=== PATIENT | male | born 1975 | race Caucasian/White ===

== ENCOUNTER 2017-04-01 18:17 | Inpatient (IN) | payer OTHER ==
[~2017-04-01] VITALS: Ht 177.8 cm; Wt 102.3 kg
[2017-04-01] MEDS: SOD CHLORIDE 0.9% 1,000 ML IV SCH (03:00)
[2017-04-01] MEDS ORDERED: SODIUM CHLORIDE 0.9% 1L BAG IV* STA (18:23)
[2017-04-01] MEDS ORDERED: VANCOMYCIN 1 GM (PMX) 250 ML IVPB ONE (18:30)
[2017-04-01] MEDS ORDERED: LEVOFLOXACIN 750MG/D5W (PMX) 150 ML IVPB ONE (18:30)
[2017-04-01] MEDS ORDERED: ONDA-43 PEG (19:13)
[2017-04-01] MEDS ORDERED: LEVE500S8 GTB (19:16)
[2017-04-01] MEDS ORDERED: MAGN400O4 PEG (19:17)
[2017-04-01] MEDS ORDERED: ASCO125T GTB (19:20)
[2017-04-01] MEDS ORDERED: ACET160O41 PEG (19:27)
[2017-04-01] MEDS ORDERED: THIA100T10 GTB (19:27)
[2017-04-01 19:28] LABS: ABNORMAL IP MESSAGE 1; HEMATOCRIT 25.2 % (42.0-52.0); HEMOGLOBIN 7.5 g/dl (14.0-18.0); MEAN CORPUSCULAR HEMOGLOBIN 30.7 pg (29.0-33.0); MEAN CORPUSCULAR HGB CONC 29.8 g/dl (32.0-37.0); MEAN CORPUSCULAR VOLUME 103.3 fl (82.0-101.0); MEAN PLATELET VOLUME 12.2 fl (7.4-10.4); NUCLEATED RED BLOOD CELLS% 0.2 /100WBC (0.0-0.0); PLATELET COUNT 72 10^3/UL (140-415); POSITIVE DIFF @See below; RED BLOOD COUNT 2.44 10^6/ul (4.70-6.10); RED CELL DISTRIBUTION WIDTH 21.1 % (11.5-14.5); WHITE BLOOD COUNT 9.6 10^3/ul (4.8-10.8)
[2017-04-01 19:44] LABS: INR 1.38; PT RATIO 1.3
[2017-04-01 19:45] LABS: PARTIAL THROMBOPLASTIN TIME 43.2 Sec (25.0-35.0)
[2017-04-01 19:47] LABS: ALANINE AMINOTRANSFERASE 61 IU/L (13-69); ALBUMIN 3.1 g/dl (3.3-4.9); ALBUMIN/GLOBULIN RATIO 0.53; ALKALINE PHOSPHATASE 536 IU/L (42-121); ANION GAP 25 (8-16); ASPARTATE AMINO TRANSFERASE 83 IU/L (15-46); BILIRUBIN,INDIRECT 0.7 mg/dl (0-1.1); BILIRUBIN,TOTAL 1.7 mg/dl (0.2-1.3); BLOOD UREA NITROGEN 26 mg/dl (7-20); CALCIUM 10.6 mg/dl (8.4-10.2); CARBON DIOXIDE 17 mmol/L (21-31); CHLORIDE 106 mmol/L (97-110); CREATININE 1.48 mg/dl (0.61-1.24); GLUCOSE 74 mg/dl (70-220); POTASSIUM 3.4 mmol/L (3.5-5.1); SODIUM 145 mmol/L (135-144); TOTAL PROTEIN 8.9 g/dl (6.1-8.1)
[2017-04-01] MEDS ORDERED: FAMO20TA18 GTB (19:48)
[2017-04-01] MEDS ORDERED: FOLI-49 PEG (19:48)
[2017-04-01] MEDS ORDERED: HYDR-906 GTB (19:53)
[2017-04-01] MEDS ORDERED: LACT1CAP57 GTB (19:54)
[2017-04-01] MEDS ORDERED: DOCU-159 GTB (19:55)
[2017-04-01] MEDS ORDERED: BISA10SU75 PR (19:55)
--- NOTE | 2017-04-01 19:55 | RADRPT ---
PROCEDURE: Portable chest x-ray. CLINICAL INDICATION: 41 years of age, male. Possible sepsis. TECHNIQUE: Portable AP view of the chest. COMPARISON: None available. FINDINGS: Tracheostomy tube appears in good position. Enlarged cardiopericardial silhouette. Mediastinal contours are otherwise normal. There is patchy consolidation in the left mid and lower lung zones and in the right lower lung zone. There are moderate bilateral pleural effusions. Negative for pneumothorax. Old healed left rib fractures. Osteopenia. IMPRESSION: Bilateral lung consolidation in the left mid and bilateral lower lung zones is concerning for multi focal pneumonia or aspiration. There are moderate bilateral pleural effusions. Tracheostomy tube in position. RPTAT: HCTS Physician Medardo Date Time Electronically viewed and signed by Anders Arias Physician on 04/01/2017 19:54 CS/
[2017-04-01] MEDS ORDERED: FERR220S13 GTB (19:58)
[2017-04-01] MEDS ORDERED: DESM10SP NASAL (19:59)
[2017-04-01] MEDS ORDERED: DEXT15DR2 BOTH EYES (20:01)
[2017-04-01 20:02] LABS: EOSINOPHILS % (M) 2 % (0-7); MONOCYTES % (M) 2 % (0-11); PLATELET ESTIMATE NORMAL; TROPONIN-I < 0.012 ng/ml (0.00-0.12)
[2017-04-01] MEDS ORDERED: [UNRECOGNIZED DRUG - CODE] PEG (20:07)
[2017-04-01] MEDS ORDERED: MULT-105 PO (20:07)
[2017-04-01] MEDS ORDERED: [UNRECOGNIZED DRUG - CODE] TP (20:08)
--- NOTE | 2017-04-01 20:16 | ERA ---
ER Documentation Chief Complaint Date/Time DATE: 04/01/17 TIME: 20:15 Chief Complaint SOB WITH FEVER/TACHYCARDIA/TACHYNPEIC WITH CLOUDY URINE NOTED IN [place] HPI This is a 41-year-old male with a significant brain injury with limited cognitive ability, chronic trach and PEG, residing in a detention facility is presenting with concerns of hypotension and sepsis. The patient was diagnosed and treated for sepsis related to UTI approximately 1 month ago according to the patient's medical record from the facility. Today, the patient was found to be hypotensive, intermittently with systolic blood pressures in the 70s. The patient was also in respiratory distress with intermittent episodes of reported hypoxia, though this does not appear to be documented. The staff reports that his urine has been more cloudy than typical. They are concerned about recurrence of sepsis related to a UTI. The patient is unable to communicate, so the history and physical is limited. The patient is oxygenating in the 90s on his normal vent settings of 12/500/40/5. He was reportedly afebrile at the care facility. He does have a Daley catheter in place, but it is unclear how long this is been in for. The urine in the Daley bag is cloudy. The patient has known sacral decubitus ulcers that appear to be recently dressed. The patient is trached and is not responsive to verbal command. He does withdraw to pain in all extremities, but this is the limit of his response. History and physical were limited secondary to his chronic altered mentation. ROS Patient unable to provide review of systems secondary to mental status Medications Home Meds Reported Medications Silver Chloride (SILVER GEL) 14.2 Gm Gel..gram., 14.2 GM TP Q3D for OVER OPEN ULCER 04/01/17 Multivitamin With Minerals (BIOVOL) 473 Ml Syrup, 15 ML PEG DAILY 04/01/17 Multivitamin with Minerals (Multivitamins with Minerals) 1 Each Tablet, 1 EACH PO, TAB 04/01/17 Dextran/Hypromellose/Glycerin (Artificial Tears Drops) 15 Ml Drops, 1 DROP BOTH EYES BID, EA 04/01/17 Desmopressin (Nonrefrigerated) (Desmopressin 10 Mcg/0.1 ml Spr) 10 Mcg/0.1 Ml Rogers.pump, 1 SPRAY NASAL BID, #1 BOTTLE 04/01/17 Ferrous Sulfate* (Ferrous Sulfate*) 220 Mg/5 Ml Solution, 7.5 ML GTB BID, ML 04/01/17 Docusate Sodium* (Docusate Sodium*) 100 Mg Capsule, 100 MG GTB DAILY, #30 CAP 04/01/17 Bisacodyl* (Bisacodyl*) 10 Mg Supp, 10 MG [place] Q48 Y for PRN, SUPP 04/01/17 Lactobacillus Rhamnosus* (Culturelle*) 1 Each Cap.sprink, 1 CAP GTB DAILY, CAP 04/01/17 Hydrocodone/Acetaminophen ([place] 5-325 Tablet) 1 Each Tablet, 1 EACH GTB Q6H, TAB 04/01/17 Famotidine* (Famotidine*) 20 Mg Tablet, 20 MG GTB QHS, #30 TAB 04/01/17 Folic Acid* (Folic Acid*) 1 Mg Tablet, 1 MG PEG DAILY, TAB 04/01/17 Thiamine* (Thiamine*) 100 Mg Tablet, 100 MG GTB DAILY, TAB 04/01/17 Acetaminophen* (Acetaminophen* Susp) 160 Mg/5 Ml Oral.susp, 15 ML PEG Q6H Y for MILD PAIN LEVEL 1-3, ML FOR FEVER 04/01/17 Ascorbic Acid* (Vitamin C* Chew) 125 Mg Tab.chew, 250 MG GTB TID, TAB.CHEW 04/01/17 Magnesium Hydroxide* (Milk Of Magnesia*) 400 Mg/5 Ml Oral.susp, 30 ML PEG Q12H for CONSTIPATION, ML 04/01/17 Levetiracetam* (Levetiracetam*) 500 Mg/5 Ml Solution, 500 MG GTB BID, ML 04/01/17 Ondansetron Hcl* (Zofran*) 4 Mg Tab, 4 MG PEG Q6H Y for NAUSEA AND OR VOMITING, TAB 04/01/17 Allergies Allergies: Coded Allergies: cephalexin (Unverified Allergy, Unknown, 04/01/17) PMhx/Soc History of Surgery: Yes (TRACH PLACEMENT,) Anesthesia Reaction: No Hx Neurological Disorder: No Hx Respiratory Disorders: Yes (RDF) Hx Cardiac Disorders: No Hx Psychiatric Problems: No Hx Miscellaneous Medical Probl: Yes (PRE-DM, HYDROCEPHALUS, DI, PRESSURE ULCERS BUTTOCKS) Hx Alcohol Use: No Hx Substance Use: No Hx Tobacco Use: No Smoking Status: Unknown if ever smoked FmHx Patient unable to provide family history secondary to current mental status Physical Exam Vitals Vital Signs Date Time Temp Pulse Resp B/P Pulse Ox O2 Delivery O2 Flow Rate FiO2 04/02/17 01:40 103 18 99 40 04/01/17 23:30 108 22 100 40 04/01/17 21:29 115 23 85/56 99 Mechanical Ventilator Trach Collar 04/01/17 21:00 108 28 100 40 04/01/17 20:16 130 20 83/54 98 Mechanical Ventilator Trach Collar 04/01/17 19:47 133 28 79/56 97 Mechanical Ventilator Trach Collar 04/01/17 18:50 129 29 98 40 04/01/17 18:34 26 95 40 04/01/17 18:25 100.9 142 28 79/56 100 Physical Exam Const: trached, minimally responsive Head: Atraumatic Eyes: Normal Conjunctiva ENT: Normal External Ears, Nose. dry mucous membranes Neck: trach in place Resp: Coarse breath sounds Cardio: tachycardic, reg rhythm, no murmurs Abd: Soft, non tender, non distended. Normal bowel sounds Skin: No petechiae or rashes Back: large sacral decubitus ulcer Ext: No cyanosis Neur: Withdraws to pain in all extremities, A&Ox0, intermittent facial twitching and saccadic eye movements Result Diagram: 04/03/17 1340 04/03/17 0500 Results 24 hrs Laboratory Tests Test 04/01/17 19:00 04/01/17 20:45 04/01/17 23:00 White Blood Count 9.610^3/ul Red Blood Count 2.4410^6/ul Hemoglobin 7.5g/dl Hematocrit 25.2% Mean Corpuscular Volume 103.3fl Mean Corpuscular Hemoglobin 30.7pg Mean Corpuscular Hemoglobin Concent 29.8g/dl Red Cell Distribution Width 21.1% Platelet Count 7210^3/UL Mean Platelet Volume 12.2fl Neutrophils % % Segmented Neutrophils % (Manual) 86% Band Neutrophils % (Manual) 8% Lymphocytes % % Lymphocytes % (Manual) 3% Monocytes % % Monocytes % (Manual) 2% Eosinophils % % Eosinophils % (Manual) 2% Basophils % % Nucleated Red Blood Cells % 0.2/100WBC Neutrophils # (Manual) 8.310^3/ul Band Neutrophils # 0.710^3/ul Absolute Lymphocytes (Manual) 0.210^3/ul Lymphocytes # 10^3/ul Monocytes # 10^3/ul Absolute Monocytes (Manual) 0.110^3/ul Eosinophils # 10^3/ul Basophils # 10^3/ul Nucleated Red Blood Cells # 10^3/ul Platelet Estimate NORMAL Prothrombin Time 17.0Sec Prothrombin Time Ratio 1.3 INR International Normalized Ratio 1.38 Activated Partial Thromboplast Time 43.2Sec Sodium Level 145mmol/L Potassium Level 3.4mmol/L Chloride Level 106mmol/L Carbon Dioxide Level 17mmol/L Anion Gap 25 Blood Urea Nitrogen 26mg/dl Creatinine 1.48mg/dl Glucose Level 74mg/dl Lactic Acid Level 11.0mmol/L 10.4mmol/L 9.7mmol/L Calcium Level 10.6mg/dl Total Bilirubin 1.7mg/dl Direct Bilirubin 1.00mg/dl Indirect Bilirubin 0.7mg/dl Aspartate Amino Transf (AST/SGOT) 83IU/L Alanine Aminotransferase (ALT/SGPT) 61IU/L Alkaline Phosphatase 536IU/L Troponin I < 0.012ng/ml < 0.012ng/ml Total Protein 8.9g/dl Albumin 3.1g/dl Globulin 5.80g/dl Albumin/Globulin Ratio 0.53 Urine Color GROVER Urine Clarity CLOUDY Urine pH 6.0 Urine Specific [place] 1.017 Urine Ketones NEGATIVEmg/dL Urine Nitrite NEGATIVEmg/dL Urine Bilirubin NEGATIVEmg/dL Urine Urobilinogen NEGATIVEmg/dL Urine Leukocyte Esterase 3+Alphonse/ul Urine Microscopic RBC > 182/HPF Urine Microscopic WBC > 182/HPF Urine Squamous Epithelial Cells FEW/HPF Urine Bacteria MODERATE/HPF Urine Mucus MODERATE/HPF Urine Hemoglobin 3+mg/dL Urine Glucose NEGATIVEmg/dL Urine Total Protein 2+mg/dl Magnesium Level 1.6mg/dl Creatine Kinase 34IU/L Creatine Kinase Index 7.2 Creatinine Kinase MB (Mass) 2.44ng/ml Current Medications Medications (Trade) Dose Ordered Sig/Von Route PRN Reason Start Time Stop Time Status Last Admin Dose Admin Sodium Chloride 2480 ml 2,480 ml BOLUS OVER 2 HOURS STAT IV* 04/01/17 18:23 04/01/17 18:27 DC 04/01/17 19:20 Vancomycin HCl 250 ml @ 125 mls/hr ONCE ONCE IVPB 04/01/17 18:30 04/01/17 20:29 DC 04/01/17 20:03 Levofloxacin/ Dextrose (Levaquin 750 Mg/ D5W 150 ml (Pmx)) 150 ml @ 100 mls/hr ONCE ONCE IVPB 04/01/17 18:30 04/01/17 19:59 DC 04/01/17 19:20 Lorazepam 2 mg 2 mg ONCE ONCE IV 04/01/17 20:30 04/01/17 20:31 DC Levetiracetam (Keppra 1,000mg/ 100ml (Pmx)) 100 ml @ 400 mls/hr ONCE ONCE IVPB 04/01/17 20:30 04/01/17 20:44 DC 04/01/17 20:45 Vancomycin HCl VANCOMYCIN PER PHARMACY PER PROTOCOL XX 04/01/17 20:30 Sodium Chloride 1,000 ml @ 125 mls/hr Q8H IV 04/01/17 20:30 04/03/17 19:17 Potassium Chloride (KCl 40 MEQ/250 ML NS) 250 ml @ 62.5 mls/hr ONCE ONCE IVPB 04/01/17 20:30 04/02/17 03:45 DC 04/02/17 10:55 Acetaminophen (Tylenol Liquid) 480 mg Q6H PRN PEG MILD PAIN LEVEL 1-3 04/01/17 20:30 Eye Lubricant (Artificial Tears Oph) 1 drop BID BOTH EYES 04/01/17 21:00 04/03/17 21:15 Levetiracetam (Keppra Liquid) 500 mg BID GTB 04/01/17 21:00 04/03/17 21:15 Ascorbic Acid (Vitamin C) 250 mg TID GTB 04/01/17 21:00 04/03/17 21:15 Miscellaneous Information 14.2 gm 14.2 gm Q3D TP 04/01/17 20:30 UNV Vancomycin HCl (Vancocin) 250 ml @ 125 mls/hr ONCE ONCE IVPB 04/01/17 23:00 04/02/17 03:45 DC Procedures/MDM The patient is exhibiting signs of septic shock. He was febrile, tachycardic, hypotensive with multiple possible sources of infection. A septic workup was performed. There was consideration of seizure, but he was responsive and the records indicate that he has the facial twitching frequently. Keppra was still given in the ER. Admit MDM: Patient's infectious symptoms have not stabilized and the patient is at risk of rapid decompensation. The patient will be admitted for careful hydration, antibiotic therapy, and infectious source control. Severe Sepsis criteria: Infectious source: unknown End organ damage indicated by: Lactate > 2.0 mmol/L Hypotension (SBP < 90 or >40 mmHG drop or MAP < 65) Acute Resp Failure (sat < 92% w/o oxygen) Plt < 100 Sepsis Management: Time of recognition of sepsis: Upon arrival Within 3 hours of recognition: Blood cultures x 2 before broad-spectrum antibiotics: Yes 30 ml/kg NS bolus Completed Initial lactate 11 Repeat lactate 10.4 Time of recognition of septic shock: Upon arrival Septic Shock Assessment: Any lactic acid > 4.0 YES Persistent hypotension (SBP < 90 or 40 mmHg drop, MAP < 65) despite 30 mL/kg IV fluid bolus YES Volume Re-assessment for Septic Shock (post 30 ml/kg bolus): BP 85/56, HR 15, RR23, Pox 99 Heart Regular rhythm, mild tachycardia Lungs Coarse breath sounds, but no crackles Skin Warm & dry Peripheral pulses Radially present Persistent Hypotension Treatment: Comfort care [No] Central line completed Vasopressor started Not required as MAPs ~65 I considered further perfusion assessment with CVP measurement, SCVO2, bedside ultrasound volume assessment, passive leg raise, trial of further fluid bolus. And proceeded with [30 ml/kg fluid bolus of NSS, broad spectrum antibiotics, and admission.] Accepting Care Team Current data and ongoing care discussed. Admitting Physician: [employer] Officer(s): None Outstanding Data: Culture results Critical Care: Critical care time 35 minutes excluding all billable procedures Emergent fluid management while maintaining close respiratory support. Provision of immediate and broad-spectrum antibiotic therapy. Simultaneous assessment for possible sources in order to direct targeted therapy. Consideration for invasive and chemical support to prevent cardiopulmonary collapse. Central Line Placement by me: Placed emergently, sterilely draped, full prep, gown, glove, mask, time out performed. Anesthesia: 1% lidocaine locally Location: right femoral vein Device: Multiple lumen Technique: Seldinger technique. Secured with suture. Results: Venous return from all ports with easy saline flush. No complications. Guide wire retrieved and disposed of. ED Ultrasound: Central line placed by me using concurrent ultrasound guidance. Real time image archived in the medical record confirms vascular anatomy. Departure Diagnosis: Primary Impression: Septic shock Additional Impressions: Acute and chronic respiratory failure Lactic acidosis Condition: NATAN Jimenes MD Apr 01, 2017 20:11 Condition: NATAN Jimenes MD Apr 01, 2017 20:11 Location: [[place]] Device: Multiple lumen Technique: Seldinger technique. Secured with suture. Results: Venous return from all ports with easy saline flush. No complications. Guide wire retrieved and disposed of. [ED Ultrasound: Central line placed by me using concurrent ultrasound guidance. Real time image archived in the medical record confirms vascular anatomy. [Chest X-ray 1V Interpreted by me: Central line in SVC, Normal soft tissue, No evidence of pneumothorax.] Departure Condition: NATAN Jimenes MD Apr 01, 2017 20:11
[2017-04-01] MEDS ORDERED: ACETAMINOPHEN 650MG/20.3ML CUP PEG PRN (20:30)
[2017-04-01] MEDS ORDERED: POTASSIUM CHLORIDE 250 ML IVPB ONE (20:30)
[2017-04-01] MEDS ORDERED: LEVETIRACETAM 1000 MG (PMX) 100 ML IVPB ONE (20:30)
[2017-04-01] MEDS ORDERED: [UNRECOGNIZED DRUG - OTHER] TP SCH (20:30)
[2017-04-01] MEDS ORDERED: LORAZEPAM 2 MG INJ IV ONE (20:30)
[2017-04-01] MEDS ORDERED: VANCOMYCIN IV PER PHARMACY XX SCH (20:30)
[2017-04-01] MEDS: LEVETIRACETAM (100 MG/ML) 5ML CUP GTB SCH (21:00)
[2017-04-01] MEDS: ASCORBIC ACID 250 MG TAB GTB SCH (21:00)
[2017-04-01] MEDS: ARTIFICIAL TEARS 15 ML OPH BOTH EYES SCH (21:00)
[2017-04-01 21:21] LABS: ADD UMIC YES; UR ASCORBIC ACID 40 mg/dL (NEGATIVE); UR BACTERIA MODERATE /HPF (NONE SEEN); UR BILIRUBIN (Dip) NEGATIVE (NEGATIVE); UR BLOOD (Dip) 3+ mg/dL (NEGATIVE); UR CLARITY CLOUDY (CLEAR); UR COLOR AMBER (YELLOW); UR GLUCOSE (Dip) NEGATIVE (NEGATIVE); UR KETONES (Dip) NEGATIVE (NEGATIVE); UR LEUKOCYTE ESTERASE (Dip) 3+ Leu/ul (NEGATIVE); UR MUCUS MODERATE /HPF (NONE SEEN); UR NITRITE (Dip) NEGATIVE (NEGATIVE); UR RBC > 182 /HPF (0-5); UR SPECIFIC GRAVITY (Dip) 1.017 (1.003-1.030); UR SQUAMOUS EPITHELIAL CELL FEW /HPF (FEW); UR TOTAL PROTEIN (Dip) 2+ mg/dl (NEGATIVE); UR UROBILINOGEN (Dip) NEGATIVE (NEGATIVE)
[2017-04-01] MEDS ORDERED: VANCOMYCIN 1 GM in NS 250 ML IVPB ONE (23:00)
[2017-04-02] VITALS (44 sets, daily range): BP systolic 85–117; BP diastolic 52–66; PULSE 80–101; RESP 13–22; Ht 177.8 cm; Wt 102.3 kg
[2017-04-02 05:22] LABS: CREATINE KINASE 34 IU/L (23-200)
[2017-04-02] MEDS: LANSOPRAZOLE 30 MG CAP GTB SCH (06:00)
[2017-04-02 06:40] LABS: CK-MB 2.44 ng/ml (0.0-2.4); TROPONIN-I < 0.012 ng/ml (0.00-0.12)
[2017-04-02 07:46] LABS: ADD UMIC YES; UR ASCORBIC ACID 40 mg/dL (NEGATIVE); UR BACTERIA FEW /HPF (NONE SEEN); UR BILIRUBIN (Dip) NEGATIVE (NEGATIVE); UR BLOOD (Dip) 3+ mg/dL (NEGATIVE); UR CLARITY CLOUDY (CLEAR); UR COLOR AMBER (YELLOW); UR GLUCOSE (Dip) NEGATIVE (NEGATIVE); UR KETONES (Dip) NEGATIVE (NEGATIVE); UR LEUKOCYTE ESTERASE (Dip) 3+ Leu/ul (NEGATIVE); UR MUCUS FEW /HPF (NONE SEEN); UR NITRITE (Dip) NEGATIVE (NEGATIVE); UR NONSQUAMOUS EPITHELIAL CELL 4 /HPF (NONE SEEN); UR RBC 67 /HPF (0-5); UR SPECIFIC GRAVITY (Dip) 1.015 (1.003-1.030); UR SQUAMOUS EPITHELIAL CELL FEW /HPF (FEW); UR TOTAL PROTEIN (Dip) 2+ mg/dl (NEGATIVE); UR UROBILINOGEN (Dip) NEGATIVE (NEGATIVE); UR WBC CLUMPS FEW /HPF (NONE SEEN)
[2017-04-02] MEDS ORDERED: PENDING SANTYL ORDER FOR WOUND CARE XX PRN (08:30)
[2017-04-02] MEDS ORDERED: SOD CHLORIDE 0.9% 1,000 ML IV ONE (09:00)
[2017-04-02] MEDS: ARTIFICIAL TEARS 15 ML OPH BOTH EYES SCH ×2 (09:00→21:01)
[2017-04-02] MEDS: FERROUS SULFATE 60 MG/ML 5ML CUP GTB SCH ×2 (09:16→21:01)
[2017-04-02] MEDS: LEVETIRACETAM (100 MG/ML) 5ML CUP GTB SCH ×2 (09:16→21:01)
[2017-04-02] MEDS: THIAMINE 100 MG TAB GTB SCH (09:16)
[2017-04-02] MEDS: MULTIVITAMINS 30 ML CUP GTB SCH (09:16)
[2017-04-02] MEDS: LACTOBACILLUS RHAMNOSUS CAP GTB SCH (09:17)
[2017-04-02] MEDS: POLYETHYLENE GLYCOL 17 GM PACKET NGT SCH (09:17)
[2017-04-02] MEDS: FOLIC ACID 1 MG TAB PEG SCH (09:17)
[2017-04-02] MEDS: ASCORBIC ACID 250 MG TAB GTB SCH ×3 (09:17→21:01)
[2017-04-02] MEDS: SOD CHLORIDE 0.9% 1,000 ML IV SCH ×3 (09:50→20:30)
[2017-04-02 10:16] LABS: ABNORMAL IP MESSAGE 1; HEMATOCRIT 23.6 % (42.0-52.0); HEMOGLOBIN 7.4 g/dl (14.0-18.0); MEAN CORPUSCULAR HEMOGLOBIN 31.4 pg (29.0-33.0); MEAN CORPUSCULAR HGB CONC 31.4 g/dl (32.0-37.0); MEAN PLATELET VOLUME 11.8 fl (7.4-10.4); PLATELET COUNT 41 10^3/UL (140-415); RED BLOOD COUNT 2.36 10^6/ul (4.70-6.10); RED CELL DISTRIBUTION WIDTH 20.6 % (11.5-14.5); WHITE BLOOD COUNT 13.7 10^3/ul (4.8-10.8)
[2017-04-02 10:22] LABS: CREATINE KINASE 42 IU/L (23-200)
[2017-04-02 10:27] LABS: ALBUMIN 2.5 g/dl (3.3-4.9); ALBUMIN/GLOBULIN RATIO 0.47; BILIRUBIN,DIRECT 0.7 mg/dl (0.00-0.20); BILIRUBIN,INDIRECT 0.7 mg/dl (0-1.1); BILIRUBIN,TOTAL 1.4 mg/dl (0.2-1.3); CALCIUM 9.5 mg/dl (8.4-10.2); CREATININE 1.22 mg/dl (0.61-1.24); MAGNESIUM 1.6 mg/dl (1.7-2.5); PHOSPHORUS 3.8 mg/dl (2.5-4.9); POTASSIUM 3.4 mmol/L (3.5-5.1); TOTAL PROTEIN 7.8 g/dl (6.1-8.1)
[2017-04-02 10:35] LABS: CK-MB 3.67 ng/ml (0.0-2.4); TROPONIN-I < 0.012 ng/ml (0.00-0.12)
[2017-04-02] MEDS: VANCOMYCIN 1.25 GM in SOD CHLORIDE 0.9% 250 ML IVPB SCH ×2 (11:23→23:11)
[2017-04-02] MEDS ORDERED: MAGNESIUM SULFATE 2 GM/50 ML 50 ML IVPB ONE (11:30)
[2017-04-02 12:03] LABS: LYMPHOCYTES # 0.1 10^3/ul (0.8-2.9); MONOCYTE # 0.1 10^3/ul (0.3-0.9); MONOCYTES % (M) 1 % (0-11)
[2017-04-02 12:04] LABS: ANISOCYTOSIS 1+ (0-0); BURR CELLS OCCASIONAL
[2017-04-02 12:05] LABS: POLYCHROMASIA 1+ (0-0)
--- NOTE | 2017-04-02 13:52 | CONS ---
Date/Time of Note Date/Time of Note DATE: 04/02/17 TIME: 13:46 Assessment/Plan Assessment/Plan Additional Assessment/Plan IMP: 1. Septic Shock--likely due to urosepsis 2. ARF--likely pre-renal 3. VDRF 4. Anoxic Encephalopathy 5. Lactic Acidosis 6. Seizure d/o 7. Decubs RECS: 1. IVF's 2. Pressors to MAP > 65 mm Hg 3. Follow lactate clearance 4. Broaden abx coverage to meropenem 5. Follow cultures and de-escalate 6. Obtain ABG and CXR Consultation Date/Type/Reason Admit Date/Time Apr 02, 2017 at 02:10 Type of Consultation: Pulm/CCM Hx of Present Illness This is a 41-year-old male resident of a SNF, with history of anoxic brain injury now in persistent vegetative state, chronic trach and PEG, DI, anemia, decub ulcers, hydrocephalus, who presents with septic shock requiring vasopressor support. Subjective hx not possible: pt non-verbal Past Medical History Medical History: peptic ulcer disease, other Past Surgical History Past Surgical Hx: other (PEG/Trach ) Family History Significant Family History: no pertinent family hx Social History Alcohol Use: none Smoking Status: Unknown if ever smoked Drug Use: none Exam/Review of Systems Vital Signs Vitals Vital Signs Date Time Temp Pulse Resp B/P Pulse Ox O2 Delivery O2 Flow Rate FiO2 04/02/17 10:30 93 19 104/61 04/02/17 09:10 99 40 04/02/17 07:30 97.8 04/01/17 21:29 Mechanical Ventilator Trach Collar Intake and Output 04/01/17 04/01/17 04/02/17 15:00 23:00 07:00 Output Total 50 ml Balance -50 ml Exam Constitutional: non-verbal Head: normocephalic Eyes: nl conjunctiva ENMT: intubated, nl external ears & nose, nl lips & teeth Neck: non-tender, supple Respiratory: diminished breath sounds Cardiovascular: irregular rhythm, regular rate and rhythm, systolic murmur Gastrointestinal: distended Musculoskeletal: nl extremities to inspection Extremities: normal pulses Results Result Diagram: 04/02/17 0903 04/02/17 0902 Results 24 hrs Laboratory Tests Test 04/01/17 19:00 04/01/17 20:45 04/01/17 23:00 04/02/17 03:00 White Blood Count 9.6 Red Blood Count 2.44 L Hemoglobin 7.5 L Hematocrit 25.2 L Mean Corpuscular Volume 103.3 H Mean Corpuscular Hemoglobin 30.7 Mean Corpuscular Hemoglobin Concent 29.8 L Red Cell Distribution Width 21.1 H Platelet Count 72 L Mean Platelet Volume 12.2 H Neutrophils % Segmented Neutrophils % (Manual) 86 H Band Neutrophils % (Manual) 8 H Lymphocytes % Lymphocytes % (Manual) 3 L Monocytes % Monocytes % (Manual) 2 Eosinophils % Eosinophils % (Manual) 2 Basophils % Nucleated Red Blood Cells % 0.2 H Neutrophils # (Manual) 8.3 H Band Neutrophils # 0.7 H Absolute Lymphocytes (Manual) 0.2 L Lymphocytes # Monocytes # Absolute Monocytes (Manual) 0.1 L Eosinophils # Basophils # Nucleated Red Blood Cells # Platelet Estimate NORMAL Prothrombin Time 17.0 H Prothrombin Time Ratio 1.3 INR International Normalized Ratio 1.38 Activated Partial Thromboplast Time 43.2 H Sodium Level 145 H Potassium Level 3.4 L Chloride Level 106 Carbon Dioxide Level 17 L Anion Gap 25 H Blood Urea Nitrogen 26 H Creatinine 1.48 H Glucose Level 74 Lactic Acid Level 11.0 *H 10.4 *H 9.7 *H Calcium Level 10.6 H Total Bilirubin 1.7 H Direct Bilirubin 1.00 H Indirect Bilirubin 0.7 Aspartate Amino Transf (AST/SGOT) 83 H Alanine Aminotransferase (ALT/SGPT) 61 Alkaline Phosphatase 536 H Troponin I < 0.012 < 0.012 Total Protein 8.9 H Albumin 3.1 L Globulin 5.80 H Albumin/Globulin Ratio 0.53 Urine Color GROVER GROVER Urine Clarity CLOUDY A CLOUDY A Urine pH 6.0 7.0 Urine Specific [place] 1.017 1.015 Urine Ketones NEGATIVE NEGATIVE Urine Nitrite NEGATIVE NEGATIVE Urine Bilirubin NEGATIVE NEGATIVE Urine Urobilinogen NEGATIVE NEGATIVE Urine Leukocyte Esterase 3+ H 3+ H Urine Microscopic RBC > 182 H 67 H Urine Microscopic WBC > 182 H > 182 H Urine Squamous Epithelial Cells FEW FEW Urine Bacteria MODERATE FEW A Urine Mucus MODERATE FEW A Urine Hemoglobin 3+ H 3+ H Urine Glucose NEGATIVE NEGATIVE Urine Total Protein 2+ H 2+ H Magnesium Level 1.6 L Creatine Kinase 34 Creatine Kinase Index 7.2 Creatinine Kinase MB (Mass) 2.44 H Test 04/02/17 09:02 04/02/17 09:03 04/02/17 09:07 04/02/17 09:15 Sodium Level 141 Potassium Level 3.4 L Chloride Level 109 Carbon Dioxide Level 19 L Anion Gap 16 # Blood Urea Nitrogen 27 H Creatinine 1.22 Glucose Level 70 Calcium Level 9.5 Phosphorus Level 3.8 Magnesium Level 1.6 L Total Bilirubin 1.4 H Direct Bilirubin 0.70 #H Indirect Bilirubin 0.7 Aspartate Amino Transf (AST/SGOT) 70 H Alanine Aminotransferase (ALT/SGPT) 58 Alkaline Phosphatase 321 H Creatine Kinase 42 Creatine Kinase Index 8.7 Creatinine Kinase MB (Mass) 3.67 H Troponin I < 0.012 Total Protein 7.8 # Albumin 2.5 L Globulin 5.30 H Albumin/Globulin Ratio 0.47 White Blood Count 13.7 #H Red Blood Count 2.36 L Hemoglobin 7.4 L Hematocrit 23.6 L Mean Corpuscular Volume 100.0 Mean Corpuscular Hemoglobin 31.4 Mean Corpuscular Hemoglobin Concent 31.4 L Red Cell Distribution Width 20.6 H Platelet Count 41 #L Mean Platelet Volume 11.8 H Neutrophils % Segmented Neutrophils % (Manual) 59 Band Neutrophils % (Manual) 39 H Lymphocytes % Lymphocytes % (Manual) 1 L Monocytes % Monocytes % (Manual) 1 Eosinophils % Basophils % Nucleated Red Blood Cells % 0.0 Neutrophils # (Manual) 8.8 H Band Neutrophils # 5.3 H Absolute Lymphocytes (Manual) 0.1 L Lymphocytes # 0.1 L Monocytes # 0.1 L Absolute Monocytes (Manual) 0.1 L Eosinophils # Basophils # Nucleated Red Blood Cells # Polychromasia 1+ Anisocytosis 1+ Macrocytosis 1+ Lactic Acid Level 5.9 *H Lab Scanned Report BLOOD TRANSFUSION Medications Medications Current Medications Sodium Chloride (NS) 1,000 ml @ 125 mls/hr Q8H IV Last administered on 09:50; Admin Dose 125 MLS/HR; Start 04/01/17 at 20:30 Lansoprazole 30 mg 30 mg DAILY@06 GTB Last administered on 04/02/17 06:00; Admin Dose 30 MG; Start 04/02/17 at 06:00 Levofloxacin/ Dextrose (Levaquin 750 Mg/ D5W 150 ml (Pmx)) 150 ml @ 100 mls/hr Q24H IVPB ; Start 04/02/17 at 19:30 Acetaminophen (Tylenol Liquid) 480 mg Q6H PRN PEG MILD PAIN LEVEL 1-3; Start at 20:30 Eye Lubricant (Artificial Tears Oph) 1 drop BID BOTH EYES ; Start 04/01/17 at 21 :00 Ferrous Sulfate (Feosol Liquid Cup) 300 mg BID GTB Last administered on 09:16; Admin Dose 300 MG; Start 04/02/17 at 09:00 Folic Acid (Folic Acid) 1 mg DAILY PEG Last administered on 04/02/17 09:17; Admin Dose 1 MG; Start 04/02/17 at 09:00 Lactobacillus Acidophilus/ Rhamnosus (Culturelle) 1 cap DAILY GTB Last administered on 04/02/17 09:17; Admin Dose 1 CAP; Start 04/02/17 at 09:00 Levetiracetam (Keppra Liquid) 500 mg BID GTB Last administered on 04/02/17 09: 16; Admin Dose 500 MG; Start 04/01/17 at 21:00 Thiamine HCl (Vitamin B1) 100 mg DAILY GTB Last administered on 04/02/17 09:16 ; Admin Dose 100 MG; Start 04/02/17 at 09:00 Ascorbic Acid (Vitamin C) 250 mg TID GTB Last administered on 04/02/17 13:40; Admin Dose 250 MG; Start 04/01/17 at 21:00 Miscellaneous Information 1 spray BID NASAL ; Start 04/01/17 at 21:00; Status UNV Multivitamins (Multivitamin) 30 ml DAILY GTB Last administered on 04/02/17 09: 16; Admin Dose 30 ML; Start 04/02/17 at 09:00 Miscellaneous Information 14.2 gm Q3D TP ; Start 04/01/17 at 20:30; Status UNV Polyethylene Glycol 8.5 gm 8.5 gm DAILY NGT Last administered on 04/02/17 09: 17; Admin Dose 8.5 GM; Start 04/02/17 at 09:00 Norepinephrine/ Dextrose (Levophed/D5W) 500 ml @ 1.87 mls/hr TITRATE IV Last administered on 04/02/17 09:36; Admin Dose 1.87 MLS/HR; Start 04/02/17 at 03:00 Miscellaneous Information This patient chapman... PRN PRN XX WOUND CARE; Start 04/02 at 08:30 Vancomycin HCl/ Sodium Chloride (Vancocin/NS) 250 ml @ 83.333 mls/ hr Q12H IVPB Last administered on 04/02/17t 11:23; Admin Dose 83.333 MLS/HR; Start at 11:30 Miscellaneous Information (*Rx Drug Level Order Reminder*) 1 ONCE ONCE XX ; Start 04/03/17 at 10:30; Stop 04/03/17 at 10:31 MAURICE MARINELLI MD Apr 02, 2017 13:52
--- NOTE | 2017-04-02 14:00 | HP ---
DATE OF ADMISSION: 04/02/2017 CHIEF COMPLAINT: The patient was sent from long-term facility because of low blood pressure. HISTORY OF PRESENT ILLNESS: Jaiden is a 42-year-old male who is unfortunately clinically respiratory dependent in a vegetative state. His mother reports that he had a history of seizures and at one point in 2014 had a seizure and aspirated and developed encephalopathy likely secondary to hypoxia at the time. The patient also suffered 2 strokes after that which left him in a vegetative state. He is currently trached to the ventilator permanently and sustained on PEG tube feeds and resides in a long-term facility. He has had multiple episodes of UTIs and pneumonias and was just recently discharged a month ago from a different hospital after being hospitalized for pneumonia and sepsis. Preliminary evaluation shows again that the patient is septic and this is thought to be secondary to urinary tract infection. However, the patient also has bilateral pleural effusions, which could be hiding an underlying pneumonia, so he is being admitted for further management and workup. REVIEW OF SYSTEMS: I attempted a 12-point review of systems but as mother does not reside with patient, pertinent findings as noted in HPI. PAST MEDICAL HISTORY: 1. 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 2. History of seizure disorder. 3. Previous CVA. 4. Status post chronic respiratory failure, ventilator dependent by a trach. 5. Status post PEG tube, dependent on PEG feeds. 6. History of kidney stones. 7. Recurrent UTI which requires hospitalization. 8. 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 ALLERGIES: ALLERGIC TO CEPHALOSPORIN. SOCIAL HISTORY: Resides in a shelter. MEDICATIONS: List has been reviewed and reconciled. FAMILY HISTORY: Noncontributory. PHYSICAL EXAMINATION: VITAL SIGNS: Temperature 100.9, pulse 153, respirations 20, blood pressure 109/56, saturations 97 percent on mechanical ventilator by trach. GENERAL: Patient is vegetative, nonverbal. Will open eyes spontaneously but does not track or follow commands. His mother says she thinks he can hear however, but there is no evidence of this at this time. HEENT: Head is currently normocephalic. Pupils are equal and reactive. NECK: The neck exam shows trach connected to vent. RESPIRATIONS: Diminished breath sounds bilaterally with some coarseness to his breath sounds. No crackles or wheezes. CARDIOVASCULAR: Tachycardic with no murmurs and regular. ABDOMEN: Distended, but soft. PEG tube noted, clean and dry. Bowel sounds also noted, possibly mildly hypoactive. EXTREMITIES: Chronic muscle wasting and trace edema. NEUROLOGIC: Vegetative. LABORATORY VALUES: He does not have elevation of white count, but he does have a low platelet of 72 and a low hemoglobin of 7.5. Also his potassium is low at 3.4. His bicarb is also low at 17. Sodium is elevated at 145. BUN and creatinine are also mildly elevated. He also has 8 percent bandemia with neutrophil predominance on his peripheral smear and is ionized 1.38. He has mild hyperbilirubinemia with a total bilirubin of 1.7. This is mostly direct. Chest x-ray shows bilateral pleural effusion. We are going to rule out underlying pneumonia. An EKG shows sinus tachycardia with multiple abnormalities but no evidence of active ischemia. ASSESSMENT: Is the followin. Sepsis with impending septic shock. 2. Urinary tract infection. 3. Bilateral pneumonia and pleural effusion. 4. Clinic staged sacral ulcers for which at least 1 is stage IV. 5. History of seizure disorder. 6. Previous cerebrovascular accident. 7. Chronic vegetative state. 8. Chronic respiratory failure, vent dependent. 9. Status post PEG tube placement. 10. Cephalosporin allergy. 11. The patient also has anemia of chronic disease. PLAN: The plan at this time is to commence prescription antibiotics, patient to assess his pain needs, blood transfusion. We will also hernadez culture including blood, urine, and imaging cultures, and a pulmonary consultation will be obtained for vent management. We will consider ID consult as well if indicated. Of note is that the patient is a [place] [facility] member, but at this time is out to me for transfer resumed in the morning, may be able to transfer to [place]. Prophylaxis is going to be put on heparin as well as a Prevacid via PEG. I spoke with mom in detail and I have answered questions. Mother said they do not want him to suffer anymore, but they want to continue aggressive treatment. As patient is a DNR but we continue to treat. Dictated By: Sylvia Rios MD /vincent/dwain /Document#: [id number]
[2017-04-02] MEDS: MEROPENEM 1 GM/50ML(PMX) 50 ML IVPB SCH ×2 (17:51→21:01)
[2017-04-02] MEDS ORDERED: LEVOFLOXACIN 750MG/D5W (PMX) 150 ML IVPB SCH (19:30)
[2017-04-02 19:54] LABS: ABNORMAL IP MESSAGE 1; BASOPHILS % 0.2 % (0.0-2.0); EOSINOPHILS # 0.1 10^3/ul (0.0-0.5); EOSINOPHILS % 0.4 % (0.0-7.0); HEMATOCRIT 25.8 % (42.0-52.0); HEMOGLOBIN 8.3 g/dl (14.0-18.0); LYMPHOCYTES # 0.5 10^3/ul (0.8-2.9); LYMPHOCYTES % 3.9 % (15.0-51.0); MEAN CORPUSCULAR HEMOGLOBIN 31.7 pg (29.0-33.0); MEAN CORPUSCULAR HGB CONC 32.2 g/dl (32.0-37.0); MEAN CORPUSCULAR VOLUME 98.5 fl (82.0-101.0); MEAN PLATELET VOLUME 12.4 fl (7.4-10.4); MONOCYTE # 0.8 10^3/ul (0.3-0.9); MONOCYTES % 6.1 % (0.0-11.0); NEUTROPHILS % 87.9 % (39.0-77.0); PLATELET COUNT 47 10^3/UL (140-415); POSITIVE DIFF @See below; RED BLOOD COUNT 2.62 10^6/ul (4.70-6.10); RED CELL DISTRIBUTION WIDTH 20.4 % (11.5-14.5); WHITE BLOOD COUNT 13.4 10^3/ul (4.8-10.8)
[2017-04-03] VITALS (64 sets, daily range): BP systolic 66–126; BP diastolic 38–77; PULSE 70–114; RESP 11–31
[2017-04-03] MEDS: SOD CHLORIDE 0.9% 1,000 ML IV SCH ×3 (00:39→19:17)
[2017-04-03] MEDS: LANSOPRAZOLE 30 MG CAP GTB SCH (05:02)
[2017-04-03] MEDS: MEROPENEM 1 GM/50ML(PMX) 50 ML IVPB SCH ×3 (05:02→21:15)
[2017-04-03 05:15] LABS: AADO2 Arterial 105.5 mmHg (7.0-24.0); Allen Test ACCEPTAB; Arterial Base Excess -5.7 mmol/L (-3.0-3); Arterial COHb 0.1 % (0.0-3.0); Arterial Fraction of Oxyhgb 97.8 % (93.0-99.0); Arterial HCO3 19.8 mmol/L (22.0-26.0); Arterial MetHb 0.2 % (0.0-1.5); Arterial Total Hemglobin 10.5 g/dl (12.0-18.0); MODE VENT - AC
[2017-04-03 05:29] LABS: ABNORMAL IP MESSAGE 1; BASOPHILS % 0.2 % (0.0-2.0); EOSINOPHILS # 0.1 10^3/ul (0.0-0.5); EOSINOPHILS % 0.7 % (0.0-7.0); HEMATOCRIT 25.3 % (42.0-52.0); HEMOGLOBIN 7.9 g/dl (14.0-18.0); LYMPHOCYTES # 0.6 10^3/ul (0.8-2.9); LYMPHOCYTES % 5.3 % (15.0-51.0); MEAN CORPUSCULAR HEMOGLOBIN 30.7 pg (29.0-33.0); MEAN CORPUSCULAR HGB CONC 31.2 g/dl (32.0-37.0); MEAN CORPUSCULAR VOLUME 98.4 fl (82.0-101.0); MEAN PLATELET VOLUME 13.2 fl (7.4-10.4); MONOCYTE # 0.5 10^3/ul (0.3-0.9); NEUTROPHILS % 87.1 % (39.0-77.0); PLATELET COUNT 36 10^3/UL (140-415); POSITIVE DIFF @See below; RED BLOOD COUNT 2.57 10^6/ul (4.70-6.10); WHITE BLOOD COUNT 10.8 10^3/ul (4.8-10.8)
[2017-04-03 06:04] LABS: ALBUMIN 2.3 g/dl (3.3-4.9); ALBUMIN/GLOBULIN RATIO 0.45; BILIRUBIN,DIRECT 0.5 mg/dl (0.00-0.20); BILIRUBIN,INDIRECT 0.5 mg/dl (0-1.1); CALCIUM 10.3 mg/dl (8.4-10.2); CREATININE 0.93 mg/dl (0.61-1.24); POTASSIUM 3.4 mmol/L (3.5-5.1); TOTAL PROTEIN 7.4 g/dl (6.1-8.1)
[2017-04-03] MEDS: MULTIVITAMINS 30 ML CUP GTB SCH (08:48)
[2017-04-03] MEDS: LEVETIRACETAM (100 MG/ML) 5ML CUP GTB SCH ×2 (08:48→21:15)
[2017-04-03] MEDS: LACTOBACILLUS RHAMNOSUS CAP GTB SCH (08:49)
[2017-04-03] MEDS: THIAMINE 100 MG TAB GTB SCH (08:49)
[2017-04-03] MEDS: ARTIFICIAL TEARS 15 ML OPH BOTH EYES SCH ×2 (08:49→21:15)
[2017-04-03] MEDS: FERROUS SULFATE 60 MG/ML 5ML CUP GTB SCH ×2 (08:49→21:15)
[2017-04-03] MEDS: ASCORBIC ACID 250 MG TAB GTB SCH ×3 (08:49→21:15)
[2017-04-03] MEDS: FOLIC ACID 1 MG TAB PEG SCH (08:49)
[2017-04-03] MEDS: POLYETHYLENE GLYCOL 17 GM PACKET NGT SCH (08:49)
--- NOTE | 2017-04-03 12:25 | PN ---
Date/Time of Note Date/Time of Note DATE: 04/03/17 TIME: 12:21 Assessment/Plan VTE Prophylaxis VTE Prophylaxis Intervention: LMWH Lines/Catheters IV Catheter Type (from Nrsg): Central Line Central line still needed: Yes (IV abx for septic shock, peripheral poor access ) Urinary Cath still in place: Yes Reason Cath still needed: urinary retention, other (indicate) (strict I/O ) Assessment/Plan Assessment/Plan 1. Septic shock. 2. Urinary tract infection. 3. Bilateral pneumonia and pleural effusion. 4. Clinic staged sacral ulcers for which at least 1 is stage IV 5. History of seizure disorder. 6. Previous cerebrovascular accident. 7. Chronic vegetative state. 8. Chronic respiratory failure, vent dependent. 9. Status post PEG tube placement. 10. anemia of chronic disease Plan : Continue IV abx as per ID IVF NS at 125 cc/hr pulmonary has been following KCL 20mEQ IV x 1 dos etoday, mag replaced Lovenox for DVT prophylaxis Subjective 24 Hr Interval Summary Free Text/Dictation no events, On ventilator, low BP Exam/Review of Systems Vital Signs Vitals Vital Signs Date Time Temp Pulse Resp B/P Pulse Ox O2 Delivery O2 Flow Rate FiO2 04/03/17 12:00 102 24 90/49 95 Mechanical Ventilator 04/03/17 11:45 30 04/03/17 11:00 98.0 Intake and Output 04/02/17 04/02/17 04/03/17 15:00 23:00 07:00 Intake Total 2306.84 ml 1319.34 ml 1295.026 ml Output Total 1030 ml 1520 ml 1700 ml Balance 1276.84 ml -200.66 ml -404.974 ml Exam Constitutional: non-verbal Head: normocephalic ENMT: other (+ tracheostomy ) Neck: supple Respiratory: congested cough, crackles/rales, diminished breath sounds, other ( Bilateral Coarse BS+) Cardiovascular: nl pulses, regular rate and rhythm Gastrointestinal: non-tender, other (G tube in place ), soft Results Result Diagram: 04/03/17 0500 04/03/17 0500 Results 24 hrs Laboratory Tests Test 04/02/17 19:50 04/03/17 05:00 04/03/17 05:40 White Blood Count 13.4 H 10.8 Red Blood Count 2.62 L 2.57 L Hemoglobin 8.3 L 7.9 L Hematocrit 25.8 L 25.3 L Mean Corpuscular Volume 98.5 98.4 Mean Corpuscular Hemoglobin 31.7 30.7 Mean Corpuscular Hemoglobin Concent 32.2 31.2 L Red Cell Distribution Width 20.4 H 21.0 H Platelet Count 47 L 36 #L Mean Platelet Volume 12.4 H 13.2 H Neutrophils % 87.9 H 87.1 H Lymphocytes % 3.9 L 5.3 L Monocytes % 6.1 5.0 Eosinophils % 0.4 0.7 Basophils % 0.2 0.2 Nucleated Red Blood Cells % 0.0 0.0 Neutrophils # (Manual) 11.8 H 9.4 H Lymphocytes # 0.5 L 0.6 L Monocytes # 0.8 0.5 Eosinophils # 0.1 0.1 Basophils # 0.0 0.0 Nucleated Red Blood Cells # 0.0 0.0 Blood Gas Specimen Source Blood arterial Arterial Blood Date Drawn 04/03/2017 5:04:00 AM Arterial Blood pH (Temp corrected) 7.326 L Arterial Blood pCO2 (Temp correct) 38.8 Arterial Blood pO2 (Temp corrected) 135.1 H Arterial Blood HCO3 19.8 L Arterial Blood Base Excess -5.7 L Arterial Blood Oxygen Saturation 98.1 H Geo Test ACCEPTAB Arterial Blood Gas Puncture Site Right Radial Arterial Blood Carboxyhemoglobin 0.1 Arterial Blood Methemoglobin 0.2 Blood Gas A-a O2 Differential 105.5 H Oxyhemoglobin Percent 97.8 Total Hemoglobin 10.5 L Blood Gas Temperature 37.0 Blood Gas Respiration Rate 12.0 Blood Gas Actual Respiration Rate 23 Blood Gas Modality VENT - AC FiO2 40.0 Blood Gas Tidal Volume 500.0 Blood Gas Low PEEP Setting 5.0 Blood Gas Inspiratory Pressure 34.0 Blood Gas Notified Whom MM Blood Gas Notified Time 04/03/2017 5:15:46 AM Sodium Level 147 H Potassium Level 3.4 L Chloride Level 116 H Carbon Dioxide Level 22 Anion Gap 12 Blood Urea Nitrogen 20 Creatinine 0.93 Glucose Level 87 Lactic Acid Level 1.5 Calcium Level 10.3 H Total Bilirubin 1.0 Direct Bilirubin 0.50 #H Indirect Bilirubin 0.5 Aspartate Amino Transf (AST/SGOT) 51 H Alanine Aminotransferase (ALT/SGPT) 45 Alkaline Phosphatase 295 H Total Protein 7.4 Albumin 2.3 L Globulin 5.10 H Albumin/Globulin Ratio 0.45 Lab Scanned Report BLOOD TRANSFUSION Medications Medications Current Medications Sodium Chloride (NS) 1,000 ml @ 125 mls/hr Q8H IV Last administered on 08:48; Admin Dose 125 MLS/HR; Start 04/01/17 at 20:30 Lansoprazole (Prevacid) 30 mg DAILY@06 GTB Last administered on 04/03/17 05:02 ; Admin Dose 30 MG; Start 04/02/17 at 06:00 Acetaminophen (Tylenol Liquid) 480 mg Q6H PRN PEG MILD PAIN LEVEL 1-3; Start at 20:30 Eye Lubricant (Artificial Tears Oph) 1 drop BID BOTH EYES Last administered on 04/03/17 08:49; Admin Dose 1 DROP; Start 04/01/17 at 21:00 Ferrous Sulfate (Feosol Liquid Cup) 300 mg BID GTB Last administered on 08:49; Admin Dose 300 MG; Start 04/02/17 at 09:00 Folic Acid (Folic Acid) 1 mg DAILY PEG Last administered on 04/03/17 08:49; Admin Dose 1 MG; Start 04/02/17 at 09:00 Lactobacillus Acidophilus/ Rhamnosus (Culturelle) 1 cap DAILY GTB Last administered on 04/03/17 08:49; Admin Dose 1 CAP; Start 04/02/17 at 09:00 Levetiracetam (Keppra Liquid) 500 mg BID GTB Last administered on 04/03/17 08: 48; Admin Dose 500 MG; Start 04/01/17 at 21:00 Thiamine HCl (Vitamin B1) 100 mg DAILY GTB Last administered on 04/03/17 08:49 ; Admin Dose 100 MG; Start 04/02/17 at 09:00 Ascorbic Acid (Vitamin C) 250 mg TID GTB Last administered on 04/03/17 08:49; Admin Dose 250 MG; Start 04/01/17 at 21:00 Miscellaneous Information 1 spray BID NASAL ; Start 04/01/17 at 21:00; Status UNV Multivitamins (Multivitamin) 30 ml DAILY GTB Last administered on 04/03/17 08: 48; Admin Dose 30 ML; Start 04/02/17 at 09:00 Miscellaneous Information 14.2 gm Q3D TP ; Start 04/01/17 at 20:30; Status UNV Polyethylene Glycol 8.5 gm 8.5 gm DAILY NGT Last administered on 04/03/17 08: 49; Admin Dose 8.5 GM; Start 04/02/17 at 09:00 Norepinephrine/ Dextrose (Levophed/D5W) 500 ml @ 1.87 mls/hr TITRATE IV Last administered on 04/02/17 09:36; Admin Dose 1.87 MLS/HR; Start 04/02/17 at 03:00 Miscellaneous Information This patient chapman... PRN PRN XX WOUND CARE; Start 04/02 at 08:30 Vancomycin HCl 1.25 gm/Sodium Chloride 250 ml @ 83.333 mls/ hr Q12H IVPB Last administered on 04/02/17 23:11; Admin Dose 83.333 MLS/HR; Start 04/02/17 at 11: 30 Meropenem/Sodium Chloride (Merrem 1 Gm/50 ml (Pmx)) 50 ml @ 200 mls/hr Q8 IVPB Last administered on 04/03/17 05:02; Admin Dose 200 MLS/HR; Start 04/02/17 at 14:00 GORDO BECERRA MD Apr 03, 2017 12:25
[2017-04-03] MEDS ORDERED: POTASSIUM CHLORIDE 20 MEQ in SOD CHLORIDE 0.9% 100 ML IVPB ONE (13:00)
--- NOTE | 2017-04-03 13:17 | CONS ---
Date/Time of Note Date/Time of Note DATE: 04/03/17 TIME: 13:14 Consult Date/Type/Reason Admit Date/Time Apr 02, 2017 at 02:10 Initial Consult Date Type of Consultation: Pulm/CCM Subjective No events. Remains on levophed gtt. Lactate normalized. Objective Vital Signs Date Time Temp Pulse Resp B/P Pulse Ox O2 Delivery O2 Flow Rate FiO2 04/03/17 12:00 102 24 90/49 95 Mechanical Ventilator 04/03/17 11:45 30 04/03/17 11:00 98.0 Intake and Output 04/02/17 04/02/17 04/03/17 15:00 23:00 07:00 Intake Total 2306.84 ml 1319.34 ml 1295.026 ml Output Total 1030 ml 1520 ml 1700 ml Balance 1276.84 ml -200.66 ml -404.974 ml Exam HEENT: Neck supple; no JVD; no LAD; trach site clean CVS: RRR, S1 and S2 CHEST: Occ rhonchi b/l ABD: Soft, NT, + BS EXT: No c/c/e; + contractures Results/Medications Result Diagram: 04/03/17 0500 04/03/17 0500 Results 24 hrs Laboratory Tests Test 04/02/17 19:50 04/03/17 05:00 04/03/17 05:40 04/03/17 10:45 White Blood Count 13.4 H 10.8 Red Blood Count 2.62 L 2.57 L Hemoglobin 8.3 L 7.9 L Hematocrit 25.8 L 25.3 L Mean Corpuscular Volume 98.5 98.4 Mean Corpuscular Hemoglobin 31.7 30.7 Mean Corpuscular Hemoglobin Concent 32.2 31.2 L Red Cell Distribution Width 20.4 H 21.0 H Platelet Count 47 L 36 #L Mean Platelet Volume 12.4 H 13.2 H Neutrophils % 87.9 H 87.1 H Lymphocytes % 3.9 L 5.3 L Monocytes % 6.1 5.0 Eosinophils % 0.4 0.7 Basophils % 0.2 0.2 Nucleated Red Blood Cells % 0.0 0.0 Neutrophils # (Manual) 11.8 H 9.4 H Lymphocytes # 0.5 L 0.6 L Monocytes # 0.8 0.5 Eosinophils # 0.1 0.1 Basophils # 0.0 0.0 Nucleated Red Blood Cells # 0.0 0.0 Blood Gas Specimen Source Blood arterial Arterial Blood Date Drawn 04/03/2017 5:04:00 AM Arterial Blood pH (Temp corrected) 7.326 L Arterial Blood pCO2 (Temp correct) 38.8 Arterial Blood pO2 (Temp corrected) 135.1 H Arterial Blood HCO3 19.8 L Arterial Blood Base Excess -5.7 L Arterial Blood Oxygen Saturation 98.1 H Geo Test ACCEPTAB Arterial Blood Gas Puncture Site Right Radial Arterial Blood Carboxyhemoglobin 0.1 Arterial Blood Methemoglobin 0.2 Blood Gas A-a O2 Differential 105.5 H Oxyhemoglobin Percent 97.8 Total Hemoglobin 10.5 L Blood Gas Temperature 37.0 Blood Gas Respiration Rate 12.0 Blood Gas Actual Respiration Rate 23 Blood Gas Modality VENT - AC FiO2 40.0 Blood Gas Tidal Volume 500.0 Blood Gas Low PEEP Setting 5.0 Blood Gas Inspiratory Pressure 34.0 Blood Gas Notified Whom MM Blood Gas Notified Time 04/03/2017 5:15:46 AM Sodium Level 147 H Potassium Level 3.4 L Chloride Level 116 H Carbon Dioxide Level 22 Anion Gap 12 Blood Urea Nitrogen 20 Creatinine 0.93 Glucose Level 87 Lactic Acid Level 1.5 Calcium Level 10.3 H Total Bilirubin 1.0 Direct Bilirubin 0.50 #H Indirect Bilirubin 0.5 Aspartate Amino Transf (AST/SGOT) 51 H Alanine Aminotransferase (ALT/SGPT) 45 Alkaline Phosphatase 295 H Total Protein 7.4 Albumin 2.3 L Globulin 5.10 H Albumin/Globulin Ratio 0.45 Lab Scanned Report BLOOD TRANSFUSION Vancomycin Level Trough 25.0 *H Medications Current Medications Sodium Chloride (NS) 1,000 ml @ 125 mls/hr Q8H IV Last administered on 08:48; Admin Dose 125 MLS/HR; Start 04/01/17 at 20:30 Lansoprazole (Prevacid) 30 mg DAILY@06 GTB Last administered on 04/03/17 05:02 ; Admin Dose 30 MG; Start 04/02/17 at 06:00 Acetaminophen (Tylenol Liquid) 480 mg Q6H PRN PEG MILD PAIN LEVEL 1-3; Start at 20:30 Eye Lubricant (Artificial Tears Oph) 1 drop BID BOTH EYES Last administered on 04/03/17 08:49; Admin Dose 1 DROP; Start 04/01/17 at 21:00 Ferrous Sulfate (Feosol Liquid Cup) 300 mg BID GTB Last administered on 08:49; Admin Dose 300 MG; Start 04/02/17 at 09:00 Folic Acid (Folic Acid) 1 mg DAILY PEG Last administered on 04/03/17 08:49; Admin Dose 1 MG; Start 04/02/17 at 09:00 Lactobacillus Acidophilus/ Rhamnosus (Culturelle) 1 cap DAILY GTB Last administered on 04/03/17 08:49; Admin Dose 1 CAP; Start 04/02/17 at 09:00 Levetiracetam (Keppra Liquid) 500 mg BID GTB Last administered on 04/03/17 08: 48; Admin Dose 500 MG; Start 04/01/17 at 21:00 Thiamine HCl (Vitamin B1) 100 mg DAILY GTB Last administered on 04/03/17 08:49 ; Admin Dose 100 MG; Start 04/02/17 at 09:00 Ascorbic Acid (Vitamin C) 250 mg TID GTB Last administered on 04/03/17 12:42; Admin Dose 250 MG; Start 04/01/17 at 21:00 Miscellaneous Information 1 spray BID NASAL ; Start 04/01/17 at 21:00; Status UNV Multivitamins (Multivitamin) 30 ml DAILY GTB Last administered on 04/03/17 08: 48; Admin Dose 30 ML; Start 04/02/17 at 09:00 Miscellaneous Information 14.2 gm Q3D TP ; Start 04/01/17 at 20:30; Status UNV Polyethylene Glycol 8.5 gm 8.5 gm DAILY NGT Last administered on 04/03/17 08: 49; Admin Dose 8.5 GM; Start 04/02/17 at 09:00 Norepinephrine/ Dextrose (Levophed/D5W) 500 ml @ 1.87 mls/hr TITRATE IV Last administered on 04/02/17 09:36; Admin Dose 1.87 MLS/HR; Start 04/02/17 at 03:00 Miscellaneous Information This patient chapman... PRN PRN XX WOUND CARE; Start 04/02 at 08:30 Meropenem/Sodium Chloride 50 ml @ 200 mls/hr Q8 IVPB Last administered on 8/27 /17at 05:02; Admin Dose 200 MLS/HR; Start 04/02/17 at 14:00 Potassium Chloride/Sodium Chloride (KCl/NS) 110 ml @ 55 mls/hr ONCE ONCE IVPB ; Start 04/03/17 at 13:00; Stop 04/03/17 at 14:59 Enoxaparin Sodium (Lovenox) 40 mg DAILY SC ; Start 04/04/17 at 09:00 Assessment/Plan Chief Complaint/Hosp Course This is a 41-year-old male resident of a SNF, with history of anoxic brain injury now in persistent vegetative state, chronic trach and PEG, DI, anemia, decub ulcers, hydrocephalus, who presents with septic shock requiring vasopressor support. Problems: Additional Assessment/Plan IMP: 1. Septic Shock--likely due to urosepsis 2. ARF--likely pre-renal 3. VDRF 4. Anoxic Encephalopathy 5. Lactic Acidosis 6. Seizure d/o 7. Decubs 8. Thrombocytopenia RECS: 1. LR bolus x 1 liter now 2. Pressors to MAP > 65 mm Hg 3. Follow lactate clearance 4. Continue meropenem 5. Follow cultures and de-escalate 6. Obtain peripheral smear and DIC labs 35 min cc time MAURICE MARINELLI MD Apr 03, 2017 13:17
[2017-04-03] MEDS ORDERED: LACTATED RINGER'S 1,000 ML IV ONE (13:30)
[2017-04-03 13:46] LABS: PLATELET COUNT 36 10^3/UL (140-415)
[2017-04-03 14:04] LABS: PROTIME 17.2 Sec (12.2-14.2); PT RATIO 1.3
[2017-04-03 14:05] LABS: PARTIAL THROMBOPLASTIN TIME 40.1 Sec (25.0-35.0)
[2017-04-03 14:08] LABS: THROMBIN TIME 17.6 SEC (13.8-19.1)
[2017-04-03 14:45] LABS: FIBRIN SPLIT PRODUCT >10 and <40 ug/ml (<10)
[2017-04-03 15:34] LABS: D-DIMER > 10000.00 ng/ml (<460)
--- NOTE | 2017-04-03 15:44 | RADRPT ---
PROCEDURE: XR Chest. CLINICAL INDICATION: Shortness of breath. TECHNIQUE: Single frontal view. COMPARISON: 04/01/2017. FINDINGS: The tracheostomy tube remains in satisfactory position. There is atelectasis or pneumonia at both l pérez bases, unchanged. The heart is enlarged. There are small to moderate bilateral pleural effusions. There is no pneumothorax. IMPRESSION: 1. No change from 04/01/2017. RPTAT: QQ .Sulaiman Vazquez MD, MD Date Time Electronically viewed and signed by .Sulaiman Vazquez MD, MD on 04/03/2017 15:44 .R/
[2017-04-03] MEDS: [UNRECOGNIZED DRUG - REMARK] XX SCH (16:30)
[2017-04-03] MEDS ORDERED: VANCOMYCIN 1.75 GM in NS 500 ML IVPB SCH (17:00)
[2017-04-04] VITALS (83 sets, daily range): BP systolic 73–141; BP diastolic 41–88; PULSE 92–120; RESP 16–31
[2017-04-04] MEDS: [UNRECOGNIZED DRUG - REMARK] XX SCH ×3 (00:30→15:53)
[2017-04-04] MEDS: SOD CHLORIDE 0.9% 1,000 ML IV SCH (03:09)
[2017-04-04] MEDS: LANSOPRAZOLE 30 MG CAP GTB SCH (05:10)
[2017-04-04] MEDS: MEROPENEM 1 GM/50ML(PMX) 50 ML IVPB SCH ×3 (05:10→21:40)
[2017-04-04 05:24] LABS: AADO2 Arterial 96.1 mmHg (7.0-24.0); Allen Test ACCEPTAB; Arterial COHb 0.3 % (0.0-3.0); Arterial Fraction of Oxyhgb 95.4 % (93.0-99.0); Arterial HCO3 16.5 mmol/L (22.0-26.0); Arterial MetHb 0.2 % (0.0-1.5); Arterial Total Hemglobin 10.8 g/dl (12.0-18.0); MODE VENT - AC
[2017-04-04 06:35] LABS: ABNORMAL IP MESSAGE 1; BASOPHIL # 0.1 10^3/ul (0.0-0.1); BASOPHILS % 0.3 % (0.0-2.0); EOSINOPHILS % 0.1 % (0.0-7.0); HEMATOCRIT 28.1 % (42.0-52.0); HEMOGLOBIN 8.8 g/dl (14.0-18.0); LYMPHOCYTES # 0.7 10^3/ul (0.8-2.9); LYMPHOCYTES % 3.2 % (15.0-51.0); MEAN CORPUSCULAR HEMOGLOBIN 30.6 pg (29.0-33.0); MEAN CORPUSCULAR HGB CONC 31.3 g/dl (32.0-37.0); MEAN CORPUSCULAR VOLUME 97.6 fl (82.0-101.0); MEAN PLATELET VOLUME 13.7 fl (7.4-10.4); MONOCYTE # 0.4 10^3/ul (0.3-0.9); POSITIVE DIFF @See below; RED BLOOD COUNT 2.88 10^6/ul (4.70-6.10); RED CELL DISTRIBUTION WIDTH 21.4 % (11.5-14.5); WHITE BLOOD COUNT 21.2 10^3/ul (4.8-10.8)
[2017-04-04 06:53] LABS: NEUTROPHILS % 94.3 % (39.0-77.0)
[2017-04-04 06:54] LABS: PLATELET COUNT 31 10^3/UL (140-415)
[2017-04-04 07:10] LABS: INR 1.45; PROTIME 17.7 Sec (12.2-14.2); PT RATIO 1.4
[2017-04-04 07:11] LABS: PARTIAL THROMBOPLASTIN TIME 42.6 Sec (25.0-35.0)
[2017-04-04 07:19] LABS: ALBUMIN 2.3 g/dl (3.3-4.9); ALBUMIN/GLOBULIN RATIO 0.45; BILIRUBIN,DIRECT 1.7 mg/dl (0.00-0.20); BILIRUBIN,INDIRECT 0.9 mg/dl (0-1.1); BILIRUBIN,TOTAL 2.6 mg/dl (0.2-1.3); CALCIUM 10.7 mg/dl (8.4-10.2); CREATININE 0.89 mg/dl (0.61-1.24); TOTAL PROTEIN 7.4 g/dl (6.1-8.1)
[2017-04-04 07:20] LABS: MAGNESIUM 1.7 mg/dl (1.7-2.5); PHOSPHORUS 2.2 mg/dl (2.5-4.9)
--- NOTE | 2017-04-04 07:28 | RADRPT ---
PROCEDURE: XR Chest. CLINICAL INDICATION: Respiratory failure, septic shock TECHNIQUE: AP Portable chest. COMPARISON: 04/03/2017 FINDINGS: The patient is very rotated to the right. There is artifact over the right apex. Tracheostomy tube i s visualized. The cardiomediastinal silhouette is enlarged. Pulmonary edema, bilateral pleural effusions and atel ectasis are similar in appearance. The hemidiaphragms are obscured. No pneumothorax is seen. Ther e are old left clavicular and multiple left rib fractures. IMPRESSION: Tracheostomy tube in place. Edema, bilateral pleural effusions and atelectasis are similar in appearance. Physician Samy Date Time Electronically viewed and signed by Physician Samy on 04/04/2017 07:28 /
[2017-04-04 07:35] LABS: POTASSIUM 2.6 mmol/L (3.5-5.1)
[2017-04-04] MEDS: LEVETIRACETAM (100 MG/ML) 5ML CUP GTB SCH (08:54)
[2017-04-04] MEDS: LACTOBACILLUS RHAMNOSUS CAP GTB SCH (08:54)
[2017-04-04] MEDS: MULTIVITAMINS 30 ML CUP GTB SCH (08:54)
[2017-04-04] MEDS: THIAMINE 100 MG TAB GTB SCH (08:55)
[2017-04-04] MEDS: ARTIFICIAL TEARS 15 ML OPH BOTH EYES SCH ×2 (08:55→20:38)
[2017-04-04] MEDS: FOLIC ACID 1 MG TAB PEG SCH (08:55)
[2017-04-04] MEDS: ASCORBIC ACID 250 MG TAB GTB SCH ×3 (08:55→20:38)
[2017-04-04] MEDS: FERROUS SULFATE 60 MG/ML 5ML CUP GTB SCH ×2 (08:55→20:38)
[2017-04-04] MEDS: POLYETHYLENE GLYCOL 17 GM PACKET NGT SCH (08:56)
[2017-04-04] MEDS ORDERED: DESMOPRESSIN 0.01% 5 ML NASAL NASAL SCH (09:00)
[2017-04-04] MEDS ORDERED: ENOXAPARIN 40 MG/0.4 ML SYG SC SCH (09:00)
[2017-04-04] MEDS: POTASSIUM CHLORIDE 250 ML IVPB SCH ×2 (09:38→13:21)
--- NOTE | 2017-04-04 10:18 | PN ---
Date/Time of Note Date/Time of Note DATE: 04/04/17 TIME: 10:02 Assessment/Plan VTE Prophylaxis VTE Prophylaxis Intervention: SCD's Lines/Catheters IV Catheter Type (from Rust): Central Line Central line still needed: Yes Urinary Cath still in place: Yes Reason Cath still needed: urinary retention Assessment/Plan Chief Complaint/Hosp Course Assessment/Plan: 41-year-old male coming from alf with: 1. Septic shock-likely secondary to urinary tract infection. Patient has history of prior multiple UTIs. Urine culture does show positive E. coli, enterococcus, and gram-negative jimmie infection. -Continue pressor support, aggressive IV fluid hydration, broad-spectrum antibiotics. He is on meropenem and vancomycin for now. -Consider DC vancomycin. - will also get infectious disease consult. 2. Bilateral pneumonia and pleural [id number] chest x-ray in the morning, continue broad-spectrum antibiotics, follow-up final culture results. 3. Clinic staged sacral ulcers for which at least 1 is stage [id number] wound care consult, continue broad-spectrum metabolic's, follow final culture results 4. History of seizure disorder -still with active seizures - will increase Keppra to 1000 IV twice daily. - Monitor for seizure activity, if worsens, consider neurology consult 6. Previous cerebrovascular accident -culture for now 7. Chronic vegetative state -trach and PEG 8. Chronic respiratory failure, vent dependent -positive pleural effusions found on chest x-ray - continue oxygen supplementation via mechanical ventilation, follow pulmonary recommendations 9. Status post PEG tube placement -we will start G-tube today 10. anemia of chronic disease -monitor H and H. 11. Hypernatremia: 147-> 151 -We will change fluids to D5W, monitor 12. possible Diabetes insipidus: Patient having increased urine output. -Continue nasal DDAVP for now, monitor symptoms. 13. Hypokalemia: We will replete potassium 14. Thrombocytopenia: Lovenox has been held, no signs of bleeding -We will repeat CBC, monitor for any signs of bleeding. Obviously hold all anticoagulants including heparin products. Critical care time spent on patient care today: 50 minutes Problems: Subjective 24 Hr Interval Summary Free Text/Dictation Patient still on pressor support. Nursing staff, patient still having signs of active seizure activity overnight. Exam/Review of Systems Vital Signs Vitals Vital Signs Date Time Temp Pulse Resp B/P Pulse Ox O2 Delivery O2 Flow Rate FiO2 04/04/17 09:57 117 23 96 30 04/04/17 06:15 126/78 Mechanical Ventilator 04/04/17 04:00 98.8 Intake and Output 04/03/17 04/03/17 04/04/17 15:00 23:00 07:00 Intake Total 940.905 ml 1537.19 ml 1309.36 ml Output Total 1310 ml 650 ml 530 ml Balance -369.095 ml 887.19 ml 779.36 ml Exam Constitutional: non-verbal Head: normocephalic ENMT: other (+ tracheostomy) Neck: supple Respiratory: some congested cough, crackles/rales, diminished breath sounds, other (Bilateral Coarse BS+) Cardiovascular: nl pulses, regular rate and rhythm Gastrointestinal: non-tender, other (G tube in place ), soft Results Result Diagram: 04/04/17 0500 04/04/17 0500 Results 24 hrs Laboratory Tests Test 04/03/17 10:45 04/03/17 13:40 04/04/17 05:00 Vancomycin Level Trough 25.0 *H Platelet Count 36 L 31 L Prothrombin Time 17.2 H 17.7 H Prothrombin Time Ratio 1.3 1.4 INR International Normalized Ratio 1.40 1.45 Activated Partial Thromboplast Time 40.1 H 42.6 H Thrombin Time 17.6 Fibrinogen 420.0 Plasma Fibrin Degradation Products >10 and <40 H D-Dimer > 46636.00 H White Blood Count 21.2 #H Red Blood Count 2.88 L Hemoglobin 8.8 L Hematocrit 28.1 L Mean Corpuscular Volume 97.6 Mean Corpuscular Hemoglobin 30.6 Mean Corpuscular Hemoglobin Concent 31.3 L Red Cell Distribution Width 21.4 H Mean Platelet Volume 13.7 H Neutrophils % 94.3 H Lymphocytes % 3.2 L Monocytes % 2.0 Eosinophils % 0.1 Basophils % 0.3 Nucleated Red Blood Cells % 0.0 Neutrophils # (Manual) 20.0 H Lymphocytes # 0.7 L Monocytes # 0.4 Eosinophils # 0.0 Basophils # 0.1 Nucleated Red Blood Cells # 0.0 Blood Gas Specimen Source Blood arterial Arterial Blood Date Drawn 04/04/2017 5:10:08 AM Arterial Blood pH (Temp corrected) 7.349 L Arterial Blood pCO2 (Temp correct) 30.7 L Arterial Blood pO2 (Temp corrected) 81.7 Arterial Blood HCO3 16.5 L Arterial Blood Base Excess -8.0 L Arterial Blood Oxygen Saturation 95.9 Geo Test ACCEPTAB Arterial Blood Gas Puncture Site Right Radial Arterial Blood Carboxyhemoglobin 0.3 Arterial Blood Methemoglobin 0.2 Blood Gas A-a O2 Differential 96.1 H Oxyhemoglobin Percent 95.4 Total Hemoglobin 10.8 L Blood Gas Temperature 37.0 Blood Gas Respiration Rate 12.0 Blood Gas Actual Respiration Rate 22 Blood Gas Modality VENT - AC FiO2 30.0 Blood Gas Tidal Volume 500.0 Blood Gas Low PEEP Setting 5.0 Blood Gas Notified Whom MA Blood Gas Notified Time 04/04/2017 5:23:52 AM Sodium Level 151 H Potassium Level 2.6 *L Chloride Level 120 H Carbon Dioxide Level 19 L Anion Gap 15 Blood Urea Nitrogen 18 Creatinine 0.89 Glucose Level 74 Lactic Acid Level 4.4 *H Calcium Level 10.7 H Phosphorus Level 2.2 #L Magnesium Level 1.7 Total Bilirubin 2.6 H Direct Bilirubin 1.70 #H Indirect Bilirubin 0.9 Aspartate Amino Transf (AST/SGOT) 52 H Alanine Aminotransferase (ALT/SGPT) 43 Alkaline Phosphatase 324 H Total Protein 7.4 Albumin 2.3 L Globulin 5.10 H Albumin/Globulin Ratio 0.45 Medications Medications Current Medications Lansoprazole (Prevacid) 30 mg DAILY@06 GTB Last administered on 04/04/17 05:10 ; Admin Dose 30 MG; Start 04/02/17 at 06:00 Acetaminophen (Tylenol Liquid) 480 mg Q6H PRN PEG MILD PAIN LEVEL 1-3; Start at 20:30 Eye Lubricant (Artificial Tears Oph) 1 drop BID BOTH EYES Last administered on 04/04/17 08:55; Admin Dose 1 DROP; Start 04/01/17 at 21:00 Ferrous Sulfate (Feosol Liquid Cup) 300 mg BID GTB Last administered on 08:55; Admin Dose 300 MG; Start 04/02/17 at 09:00 Folic Acid (Folic Acid) 1 mg DAILY PEG Last administered on 04/04/17 08:55; Admin Dose 1 MG; Start 04/02/17 at 09:00 Lactobacillus Acidophilus/ Rhamnosus (Culturelle) 1 cap DAILY GTB Last administered on 04/04/17 08:54; Admin Dose 1 CAP; Start 04/02/17 at 09:00 Levetiracetam (Keppra Liquid) 500 mg BID GTB Last administered on 04/04/17 08: 54; Admin Dose 500 MG; Start 04/01/17 at 21:00 Thiamine HCl (Vitamin B1) 100 mg DAILY GTB Last administered on 04/04/17 08:55 ; Admin Dose 100 MG; Start 04/02/17 at 09:00 Ascorbic Acid (Vitamin C) 250 mg TID GTB Last administered on 04/04/17 08:55; Admin Dose 250 MG; Start 04/01/17 at 21:00 Desmopressin Acetate (Ddavp Nasal) 1 spray BID NASAL ; Start 04/04/17 at 09:00 Multivitamins (Multivitamin) 30 ml DAILY GTB Last administered on 04/04/17 08: 54; Admin Dose 30 ML; Start 04/02/17 at 09:00 Miscellaneous Information 14.2 gm Q3D TP ; Start 04/01/17 at 20:30; Status UNV Polyethylene Glycol 8.5 gm 8.5 gm DAILY NGT Last administered on 04/04/17 08: 56; Admin Dose 8.5 GM; Start 04/02/17 at 09:00 Norepinephrine/ Dextrose (Levophed/D5W) 500 ml @ 1.87 mls/hr TITRATE IV Last administered on 04/04/17 03:06; Admin Dose 37.5 MLS/HR; Start 04/02/17 at 03:00 Miscellaneous Information This patient chapman... PRN PRN XX WOUND CARE; Start 04/02 at 08:30 Meropenem/Sodium Chloride 50 ml @ 200 mls/hr Q8 IVPB Last administered on 04/04 05:10; Admin Dose 200 MLS/HR; Start 04/02/17 at 14:00 Vancomycin HCl/ Sodium Chloride (Vancocin/NS) 500 ml @ 125 mls/hr Q24H IVPB Last administered on 04/03/17 17:48; Admin Dose 125 MLS/HR; Start 04/03/17 at 17:00 Miscellaneous Information SILVER CHLORIDE GEL: PLEASE ASK FAMILY TO BR... Q8H XX ; Start 04/03/17 at 16:30 Potassium Chloride 250 ml @ 62.5 mls/hr Q4H IVPB Last administered on t 09:38; Admin Dose 62.5 MLS/HR; Start 04/04/17 at 09:30; Stop 04/04/17 at 17 :29 Dextrose (D5W) 1,000 ml @ 125 mls/hr Q8H IV ; Start 04/04/17 at 10:00 BECKI ESCOBAR Apr 04, 2017 10:16
[2017-04-04] MEDS ORDERED: LEVETIRACETAM 1000 MG (PMX) 100 ML IVPB SCH (10:30)
[2017-04-04] MEDS: DEXTROSE 5% 1,000 ML IV SCH ×3 (10:31→19:09)
--- NOTE | 2017-04-04 10:40 | CONS ---
Date/Time of Note Date/Time of Note DATE: 04/04/17 TIME: 10:35 Assessment/Plan Assessment/Plan Additional Assessment/Plan Chest x-ray was reviewed from today which is showing bibasilar infiltrate/ atelectasis/pleural effusions. Ventilator setting; AC of 12, tidal volume 500, PEEP of 5, 30% FiO2. Patient currently on Levophed at 9 mics per minute. Assessment and recommendations; 1. Patient admitted with severe sepsis from UTI as well as decubitus wound involving the sacrum. 2. Stable seizure disorder. 3. Chronic respiratory failure due to severe anoxic brain injury. 4. Severe thrombocytopenia. Patient however not having any overt bleeding. With stable hematocrit. 5. Hypernatremia and hyperchloremia, likely some element of diabetes insipidus. Continue current treatment. Add desmopressin subcutaneously twice a day at least for 4 doses. Monitor serum sodium level. Off Levophed as tolerated. 35 minutes of critical care time was spent evaluating the patient. Consultation Date/Type/Reason Admit Date/Time Apr 02, 2017 at 02:10 Initial Consult Date Type of Consultation: Pulm/CCM 24 HR Interval Summary Free Text/Dictation Patient's condition remains critical. Remains hypotensive and still requiring Levophed for blood pressure maintenance. Patient remains chronically ventilator dependent. General exam; young male, unresponsive, on ventilator via tracheostomy, unresponsive. Currently in no distress. Exam/Review of Systems Vital Signs Vitals Vital Signs Date Time Temp Pulse Resp B/P Pulse Ox O2 Delivery O2 Flow Rate FiO2 04/04/17 09:57 117 23 96 30 04/04/17 06:15 126/78 Mechanical Ventilator 04/04/17 04:00 98.8 Intake and Output 04/03/17 04/03/17 04/04/17 15:00 23:00 07:00 Intake Total 940.905 ml 1537.19 ml 1309.36 ml Output Total 1310 ml 650 ml 530 ml Balance -369.095 ml 887.19 ml 779.36 ml Exam HEENT exam; supple neck, no JVD. No lymphadenopathy. Midline trachea. No thyromegaly. Ostomy in place. Pupils are small bilaterally. There are small well-healed scars involving the left temporoparietal area. Chest exam: diminished breath sounds in lung bases bilaterally. Scattered crackles bilaterally. S1-S2 audible, no murmurs. Regular rhythm. Abdomen exam; soft, G-tube in place. Bowel sounds audible. No organomegaly. Back exam; dressing applied over sacrum. There is a stage IV decubitus wound. Extremity exam; trace peripheral edema. Patient does have contractures involving all 4 extremities. 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 Results Result Diagram: 04/04/17 0500 04/04/17 0500 Results 24 hrs Laboratory Tests Test 04/03/17 10:45 04/03/17 13:40 04/04/17 05:00 Vancomycin Level Trough 25.0 *H Platelet Count 36 L 31 L Prothrombin Time 17.2 H 17.7 H Prothrombin Time Ratio 1.3 1.4 INR International Normalized Ratio 1.40 1.45 Activated Partial Thromboplast Time 40.1 H 42.6 H Thrombin Time 17.6 Fibrinogen 420.0 Plasma Fibrin Degradation Products >10 and <40 H D-Dimer > 05472.00 H White Blood Count 21.2 #H Red Blood Count 2.88 L Hemoglobin 8.8 L Hematocrit 28.1 L Mean Corpuscular Volume 97.6 Mean Corpuscular Hemoglobin 30.6 Mean Corpuscular Hemoglobin Concent 31.3 L Red Cell Distribution Width 21.4 H Mean Platelet Volume 13.7 H Neutrophils % 94.3 H Lymphocytes % 3.2 L Monocytes % 2.0 Eosinophils % 0.1 Basophils % 0.3 Nucleated Red Blood Cells % 0.0 Neutrophils # (Manual) 20.0 H Lymphocytes # 0.7 L Monocytes # 0.4 Eosinophils # 0.0 Basophils # 0.1 Nucleated Red Blood Cells # 0.0 Blood Gas Specimen Source Blood arterial Arterial Blood Date Drawn 04/04/2017 5:10:08 AM Arterial Blood pH (Temp corrected) 7.349 L Arterial Blood pCO2 (Temp correct) 30.7 L Arterial Blood pO2 (Temp corrected) 81.7 Arterial Blood HCO3 16.5 L Arterial Blood Base Excess -8.0 L Arterial Blood Oxygen Saturation 95.9 Geo Test ACCEPTAB Arterial Blood Gas Puncture Site Right Radial Arterial Blood Carboxyhemoglobin 0.3 Arterial Blood Methemoglobin 0.2 Blood Gas A-a O2 Differential 96.1 H Oxyhemoglobin Percent 95.4 Total Hemoglobin 10.8 L Blood Gas Temperature 37.0 Blood Gas Respiration Rate 12.0 Blood Gas Actual Respiration Rate 22 Blood Gas Modality VENT - AC FiO2 30.0 Blood Gas Tidal Volume 500.0 Blood Gas Low PEEP Setting 5.0 Blood Gas Notified Whom MA Blood Gas Notified Time 04/04/2017 5:23:52 AM Sodium Level 151 H Potassium Level 2.6 *L Chloride Level 120 H Carbon Dioxide Level 19 L Anion Gap 15 Blood Urea Nitrogen 18 Creatinine 0.89 Glucose Level 74 Lactic Acid Level 4.4 *H Calcium Level 10.7 H Phosphorus Level 2.2 #L Magnesium Level 1.7 Total Bilirubin 2.6 H Direct Bilirubin 1.70 #H Indirect Bilirubin 0.9 Aspartate Amino Transf (AST/SGOT) 52 H Alanine Aminotransferase (ALT/SGPT) 43 Alkaline Phosphatase 324 H Total Protein 7.4 Albumin 2.3 L Globulin 5.10 H Albumin/Globulin Ratio 0.45 Medications Medications Current Medications Lansoprazole (Prevacid) 30 mg DAILY@06 GTB Last administered on 04/04/17 05:10 ; Admin Dose 30 MG; Start 04/02/17 at 06:00 Acetaminophen (Tylenol Liquid) 480 mg Q6H PRN PEG MILD PAIN LEVEL 1-3; Start at 20:30 Eye Lubricant (Artificial Tears Oph) 1 drop BID BOTH EYES Last administered on 04/04/17 08:55; Admin Dose 1 DROP; Start 04/01/17 at 21:00 Ferrous Sulfate (Feosol Liquid Cup) 300 mg BID GTB Last administered on 08:55; Admin Dose 300 MG; Start 04/02/17 at 09:00 Folic Acid (Folic Acid) 1 mg DAILY PEG Last administered on 04/04/17 08:55; Admin Dose 1 MG; Start 04/02/17 at 09:00 Lactobacillus Acidophilus/ Rhamnosus (Culturelle) 1 cap DAILY GTB Last administered on 04/04/17 08:54; Admin Dose 1 CAP; Start 04/02/17 at 09:00 Thiamine HCl (Vitamin B1) 100 mg DAILY GTB Last administered on 04/04/17 08:55 ; Admin Dose 100 MG; Start 04/02/17 at 09:00 Ascorbic Acid (Vitamin C) 250 mg TID GTB Last administered on 04/04/17 08:55; Admin Dose 250 MG; Start 04/01/17 at 21:00 Desmopressin Acetate (Ddavp Nasal) 1 spray BID NASAL ; Start 04/04/17 at 09:00 Multivitamins (Multivitamin) 30 ml DAILY GTB Last administered on 04/04/17 08: 54; Admin Dose 30 ML; Start 04/02/17 at 09:00 Miscellaneous Information 14.2 gm Q3D TP ; Start 04/01/17 at 20:30; Status UNV Polyethylene Glycol 8.5 gm 8.5 gm DAILY NGT Last administered on 04/04/17 08: 56; Admin Dose 8.5 GM; Start 04/02/17 at 09:00 Norepinephrine/ Dextrose (Levophed/D5W) 500 ml @ 1.87 mls/hr TITRATE IV Last administered on 04/04/17 03:06; Admin Dose 37.5 MLS/HR; Start 04/02/17 at 03:00 Miscellaneous Information This patient chapman... PRN PRN XX WOUND CARE; Start 04/02 at 08:30 Meropenem/Sodium Chloride 50 ml @ 200 mls/hr Q8 IVPB Last administered on 04/04 05:10; Admin Dose 200 MLS/HR; Start 04/02/17 at 14:00 Vancomycin HCl/ Sodium Chloride (Vancocin/NS) 500 ml @ 125 mls/hr Q24H IVPB Last administered on 04/03/17 17:48; Admin Dose 125 MLS/HR; Start 04/03/17 at 17:00 Miscellaneous Information SILVER CHLORIDE GEL: PLEASE ASK FAMILY TO BR... Q8H XX ; Start 04/03/17 at 16:30 Potassium Chloride 250 ml @ 62.5 mls/hr Q4H IVPB Last administered on 09:38; Admin Dose 62.5 MLS/HR; Start 04/04/17 at 09:30; Stop 04/04/17 at 17 :29 Dextrose 1,000 ml @ 125 mls/hr Q8H IV ; Start 04/04/17 at 10:00 Levetiracetam 100 ml @ 400 mls/hr Q12 IVPB ; Start 04/04/17 at 22:30 Levetiracetam/ Sodium Chloride (Keppra Iv/NS) 107.5 ml @ 430 mls/hr ONCE IVPB ; Start 04/04/17 at 11:30; Stop 04/04/17 at 11:44 JUDI VAZQUEZ Apr 04, 2017 10:40
--- NOTE | 2017-04-04 11:20 | CONS ---
Date/Time of Note Date/Time of Note DATE: 04/04/17 TIME: 11:20 Consultation Date/Type/Reason Admit Date/Time Apr 02, 2017 at 02:10 Date of Consultation: Apr 04, 2017 Type of Consultation: ID Reason for Consultation Antibiotic management Past Medical History Medical History: peptic ulcer disease, other Past Surgical History Past Surgical Hx: other (PEG/Trach ) Social History Alcohol Use: none Smoking Status: Unknown if ever smoked Drug Use: none Exam/Review of Systems Vital Signs Vitals Vital Signs Date Time Temp Pulse Resp B/P Pulse Ox O2 Delivery O2 Flow Rate FiO2 04/04/17 10:45 114 23 119/70 96 04/04/17 10:00 Mechanical Ventilator 04/04/17 09:57 30 04/04/17 08:00 99.2 Intake and Output 04/03/17 04/03/17 04/04/17 14:59 22:59 06:59 Intake Total 929.725 ml 1516.49 ml 1471.86 ml Output Total 1190 ml 670 ml 630 ml Balance -260.275 ml 846.49 ml 841.86 ml Results Result Diagram: 04/04/17 0500 04/04/17 0500 Results 24 hrs Laboratory Tests Test 04/03/17 13:40 04/04/17 05:00 Platelet Count 36 L 31 L Prothrombin Time 17.2 H 17.7 H Prothrombin Time Ratio 1.3 1.4 INR International Normalized Ratio 1.40 1.45 Activated Partial Thromboplast Time 40.1 H 42.6 H Thrombin Time 17.6 Fibrinogen 420.0 Plasma Fibrin Degradation Products >10 and <40 H D-Dimer > 03585.00 H White Blood Count 21.2 #H Red Blood Count 2.88 L Hemoglobin 8.8 L Hematocrit 28.1 L Mean Corpuscular Volume 97.6 Mean Corpuscular Hemoglobin 30.6 Mean Corpuscular Hemoglobin Concent 31.3 L Red Cell Distribution Width 21.4 H Mean Platelet Volume 13.7 H Neutrophils % 94.3 H Lymphocytes % 3.2 L Monocytes % 2.0 Eosinophils % 0.1 Basophils % 0.3 Nucleated Red Blood Cells % 0.0 Neutrophils # (Manual) 20.0 H Lymphocytes # 0.7 L Monocytes # 0.4 Eosinophils # 0.0 Basophils # 0.1 Nucleated Red Blood Cells # 0.0 Blood Gas Specimen Source Blood arterial Arterial Blood Date Drawn 04/04/2017 5:10:08 AM Arterial Blood pH (Temp corrected) 7.349 L Arterial Blood pCO2 (Temp correct) 30.7 L Arterial Blood pO2 (Temp corrected) 81.7 Arterial Blood HCO3 16.5 L Arterial Blood Base Excess -8.0 L Arterial Blood Oxygen Saturation 95.9 Geo Test ACCEPTAB Arterial Blood Gas Puncture Site Right Radial Arterial Blood Carboxyhemoglobin 0.3 Arterial Blood Methemoglobin 0.2 Blood Gas A-a O2 Differential 96.1 H Oxyhemoglobin Percent 95.4 Total Hemoglobin 10.8 L Blood Gas Temperature 37.0 Blood Gas Respiration Rate 12.0 Blood Gas Actual Respiration Rate 22 Blood Gas Modality VENT - AC FiO2 30.0 Blood Gas Tidal Volume 500.0 Blood Gas Low PEEP Setting 5.0 Blood Gas Notified Whom MA Blood Gas Notified Time 04/04/2017 5:23:52 AM Sodium Level 151 H Potassium Level 2.6 *L Chloride Level 120 H Carbon Dioxide Level 19 L Anion Gap 15 Blood Urea Nitrogen 18 Creatinine 0.89 Glucose Level 74 Lactic Acid Level 4.4 *H Calcium Level 10.7 H Phosphorus Level 2.2 #L Magnesium Level 1.7 Total Bilirubin 2.6 H Direct Bilirubin 1.70 #H Indirect Bilirubin 0.9 Aspartate Amino Transf (AST/SGOT) 52 H Alanine Aminotransferase (ALT/SGPT) 43 Alkaline Phosphatase 324 H Total Protein 7.4 Albumin 2.3 L Globulin 5.10 H Albumin/Globulin Ratio 0.45 Medications Medications Current Medications Lansoprazole (Prevacid) 30 mg DAILY@06 GTB Last administered on 04/04/17 05:10 ; Admin Dose 30 MG; Start 04/02/17 at 06:00 Acetaminophen (Tylenol Liquid) 480 mg Q6H PRN PEG MILD PAIN LEVEL 1-3; Start at 20:30 Eye Lubricant (Artificial Tears Oph) 1 drop BID BOTH EYES Last administered on 04/04/17 08:55; Admin Dose 1 DROP; Start 04/01/17 at 21:00 Ferrous Sulfate (Feosol Liquid Cup) 300 mg BID GTB Last administered on 08:55; Admin Dose 300 MG; Start 04/02/17 at 09:00 Folic Acid (Folic Acid) 1 mg DAILY PEG Last administered on 04/04/17 08:55; Admin Dose 1 MG; Start 04/02/17 at 09:00 Lactobacillus Acidophilus/ Rhamnosus (Culturelle) 1 cap DAILY GTB Last administered on 04/04/17 08:54; Admin Dose 1 CAP; Start 04/02/17 at 09:00 Thiamine HCl (Vitamin B1) 100 mg DAILY GTB Last administered on 04/04/17 08:55 ; Admin Dose 100 MG; Start 04/02/17 at 09:00 Ascorbic Acid (Vitamin C) 250 mg TID GTB Last administered on 04/04/17 08:55; Admin Dose 250 MG; Start 04/01/17 at 21:00 Multivitamins (Multivitamin) 30 ml DAILY GTB Last administered on 04/04/17 08: 54; Admin Dose 30 ML; Start 04/02/17 at 09:00 Miscellaneous Information 14.2 gm Q3D TP ; Start 04/01/17 at 20:30; Status UNV Polyethylene Glycol 8.5 gm 8.5 gm DAILY NGT Last administered on 04/04/17 08: 56; Admin Dose 8.5 GM; Start 04/02/17 at 09:00 Norepinephrine/ Dextrose (Levophed/D5W) 500 ml @ 1.87 mls/hr TITRATE IV Last administered on 04/04/17 03:06; Admin Dose 37.5 MLS/HR; Start 04/02/17 at 03:00 Miscellaneous Information This patient chapman... PRN PRN XX WOUND CARE; Start 04/02 at 08:30 Meropenem/Sodium Chloride 50 ml @ 200 mls/hr Q8 IVPB Last administered on 04/04 05:10; Admin Dose 200 MLS/HR; Start 04/02/17 at 14:00 Vancomycin HCl/ Sodium Chloride (Vancocin/NS) 500 ml @ 125 mls/hr Q24H IVPB Last administered on 04/03/17 17:48; Admin Dose 125 MLS/HR; Start 04/03/17 at 17:00 Miscellaneous Information SILVER CHLORIDE GEL: PLEASE ASK FAMILY TO BR... Q8H XX ; Start 04/03/17 at 16:30 Potassium Chloride 250 ml @ 62.5 mls/hr Q4H IVPB Last administered on 09:38; Admin Dose 62.5 MLS/HR; Start 04/04/17 at 09:30; Stop 04/04/17 at 17 :29 Dextrose 1,000 ml @ 125 mls/hr Q8H IV Last administered on 04/04/17t 10:31; Admin Dose 125 MLS/HR; Start 04/04/17 at 10:00 Levetiracetam 100 ml @ 400 mls/hr Q12 IVPB ; Start 04/04/17 at 22:30 Levetiracetam/ Sodium Chloride (Keppra Iv/NS) 107.5 ml @ 430 mls/hr ONCE IVPB ; Start 04/04/17 at 11:30; Stop 04/04/17 at 11:44 Desmopressin Acetate (Ddavp) 2 mcg BID SC ; Start 04/04/17 at 12:30 ANTON RASMUSSEN MD Apr 04, 2017 11:20
[2017-04-04] MEDS ORDERED: AMIKACIN IV PER PHARMACY XX SCH (11:30)
[2017-04-04] MEDS ORDERED: LEVETIRACETAM IV 750 MG in SOD CHLORIDE 0.9% 100 ML IVPB SCH (11:30)
[2017-04-04 12:14] LABS: ABNORMAL IP MESSAGE 1; HEMOGLOBIN 8.2 g/dl (14.0-18.0); MEAN CORPUSCULAR HEMOGLOBIN 30.6 pg (29.0-33.0); MEAN CORPUSCULAR HGB CONC 31.5 g/dl (32.0-37.0); MEAN PLATELET VOLUME 12.8 fl (7.4-10.4); POSITIVE DIFF @See below; RED BLOOD COUNT 2.68 10^6/ul (4.70-6.10); RED CELL DISTRIBUTION WIDTH 21.4 % (11.5-14.5); WHITE BLOOD COUNT 14.3 10^3/ul (4.8-10.8)
[2017-04-04 12:17] LABS: MAGNESIUM 1.8 mg/dl (1.7-2.5)
[2017-04-04] MEDS ORDERED: AMIKACIN 1,000 MG in SOD CHLORIDE 0.9% 100 ML IVPB SCH (13:00)
[2017-04-04 13:23] LABS: EOSINOPHILS # 0.1 10^3/ul (0.0-0.5); EOSINOPHILS % (M) 1 % (0.0-7.0); LYMPHOCYTES # 0.3 10^3/ul (0.8-2.9); MONOCYTE # 0.1 10^3/ul (0.3-0.9); MONOCYTES % (M) 1 % (0-11)
[2017-04-04 13:25] LABS: PLATELET COUNT 28 10^3/UL (140-415)
[2017-04-04] MEDS: DESMOPRESSIN 4 MCG INJ SC SCH ×2 (14:18→20:39)
--- NOTE | 2017-04-04 20:03 | CONS ---
DATE OF ADMISSION: 04/02/2017 DATE OF CONSULTATION: 04/04/2017 REASON FOR CONSULTATION: Antibiotic management. HISTORY OF PRESENT ILLNESS: Jaiden Peña is a 41-year-old male who was sent in from [facility] facility because of hypotension and is being seen for antibiotic management. His past problems include: 1. 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 2. Seizure disorder. 3. Previous CVA. 4. Ventilator-dependent respiratory failure secondary to chronic respiratory failure. 5. Status post G-tube placement. 6. Kidney stones. 7. Recurrent UTIs. 8. Sacral decubitus ulcers, one of which is at least stage IV. 9. Allergy to cephalosporins. The patient has suffered 2 strokes, which left him in a vegetative state. He has multiple UTIs as noted and also pneumonia. He was recently discharged from a different hospital after being hospitalized for pneumonia and sepsis. He appears to be septic again, at this point, secondary to a urinary tract infection. He has bilateral pleural effusions as well. LABORATORY: On admission, his white count was 9.6, hemoglobin 7.5, hematocrit 25.2, platelet count of 72,000. His BUN was 18 and creatinine 0.89. Potassium today is 2.6. Lactic acid is 4.4. Patient is currently on vancomycin and meropenem. MICROBIOLOGY: Endotracheal tube from 04/01/2017 is growing Providencia stuartii and gram-negative rods sensitive to cefepime, intermediate to imipenem. He is growing E coli sensitive to cefazolin, and Proteus mirabilis sensitive to tobramycin and gentamicin. His E coli, enterococcus, and gram- negative rods in the wound are sensitive to cefotaxime. IMAGING STUDIES: On 04/04/2017, shows a tracheostomy tube in place. The patient has bilateral pleural effusions and atelectasis. Patient has a central line and a German catheter. PAST MEDICAL HISTORY: Operations as outlined. FAMILY HISTORY: Noncontributory. SOCIAL HISTORY: He does not smoke, drink, or abuse drugs. ALLERGIES: NONE TO PENICILLIN, SULFA, OR FOODS. MEDICATION: Per chart. REVIEW OF SYSTEMS: As per HPI. PHYSICAL EXAMINATION: GENERAL: Patient is a chronically ill-appearing male, who is nonverbal. He is afebrile. He has a trach and a PEG and German and a central line. SKIN: Without generalized rash. HEENT: Within normal limits. NECK: Supple. Lymph nodes nonpalpable. CHEST: Decreased breath sounds at the bases. HEART: Without murmur or gallop. ABDOMEN: Soft. Nontender, without organosplenomegaly or masses. Extremities are atrophic with chronic muscle wasting. As noted, he has a G-tube in place in the abdomen. RECTAL AND GENITAL: Exams deferred. NEUROLOGICAL: The patient is vegetative. IMPRESSION AND PLAN: Patient has a cephalosporin allergy, and yet he has organisms that are resistant or intermediate to imipenem. There is E coli in his blood cultures intermediate to tobramycin. I am going to put him on amikacin, which will cover, I believe, all of the organisms. I will dictate my findings to the hospitalist. Dictated By: Iván Leone MD JD/vincent/aidan /Document#: [id number]
[2017-04-04] MEDS: LEVETIRACETAM 1000 MG (PMX) 100 ML IVPB SCH (21:40)
[2017-04-05] VITALS (83 sets, daily range): BP systolic 78–123; BP diastolic 39–112; PULSE 46–100; RESP 13–24
[2017-04-05] MEDS ORDERED: COLLAGENASE 30 GM TUBE TOP PRN (00:30)
[2017-04-05] MEDS: [UNRECOGNIZED DRUG - REMARK] XX SCH ×2 (00:30→07:57)
[2017-04-05] MEDS: LANSOPRAZOLE 30 MG CAP GTB SCH (06:36)
[2017-04-05] MEDS: MEROPENEM 1 GM/50ML(PMX) 50 ML IVPB SCH ×2 (06:42→13:15)
[2017-04-05] MEDS ORDERED: SOD CHLORIDE 0.9% 500 ML IV ONE (07:00)
[2017-04-05 07:23] LABS: CALCIUM 10.6 mg/dl (8.4-10.2); CREATININE 0.93 mg/dl (0.61-1.24)
[2017-04-05 07:38] LABS: POTASSIUM 2.7 mmol/L (3.5-5.1)
[2017-04-05] MEDS: MULTIVITAMINS 30 ML CUP GTB SCH (08:05)
[2017-04-05] MEDS: FERROUS SULFATE 60 MG/ML 5ML CUP GTB SCH ×2 (08:05→21:27)
[2017-04-05] MEDS: ASCORBIC ACID 250 MG TAB GTB SCH ×3 (08:05→21:27)
[2017-04-05] MEDS: LACTOBACILLUS RHAMNOSUS CAP GTB SCH (08:05)
[2017-04-05] MEDS: POLYETHYLENE GLYCOL 17 GM PACKET NGT SCH (08:05)
[2017-04-05] MEDS: THIAMINE 100 MG TAB GTB SCH (08:05)
[2017-04-05] MEDS: FOLIC ACID 1 MG TAB PEG SCH (08:05)
[2017-04-05] MEDS: COLLAGENASE 30 GM TUBE TOP SCH (08:06)
[2017-04-05] MEDS: LEVETIRACETAM 1000 MG (PMX) 100 ML IVPB SCH ×2 (08:06→21:28)
[2017-04-05] MEDS: ARTIFICIAL TEARS 15 ML OPH BOTH EYES SCH ×2 (08:07→21:27)
[2017-04-05] MEDS: POTASSIUM CHLORIDE 250 ML IVPB SCH ×3 (08:07→16:36)
[2017-04-05] MEDS: DEXTROSE 5% 1,000 ML IV SCH ×2 (08:40→17:44)
--- NOTE | 2017-04-05 08:46 | CONS ---
Date/Time of Note Date/Time of Note DATE: 04/05/17 TIME: 08:41 Assessment/Plan Assessment/Plan Additional Assessment/Plan Ventilator setting; AC of 12, tidal volume 500, PEEP of 5, 30% FiO2. Assessment and recommendations; 1. Patient admitted with severe sepsis from UTI, gram-negative bacteremia, and multiple organisms growing from sacral wound. Currently on broad-spectrum antibiotic coverage. 2. Hypotension, patient taken off Levophed but resumed on it again this morning. 3. Stable seizure disorder. 4. Severe anoxic brain injury, patient remains in a persistent vegetative state. 5. Hypernatremia and hyperchloremia nonresponsive to desmopressin. 6. Thrombocytopenia. Discontinue desmopressin. Continue current supportive care. Add free water via G-tube 250 ML every 6 hours. Monitor serum sodium level. Consultation Date/Type/Reason Admit Date/Time Apr 02, 2017 at 02:10 Type of Consultation: Pulmonary/critical care 24 HR Interval Summary Free Text/Dictation Patient's condition remains unchanged. Remains unresponsive due to anoxic brain injury. Also remains chronically ventilator dependent. Patient has remained hemodynamically stable. General exam; young male, on ventilator via tracheostomy, unresponsive, currently in no distress. Exam/Review of Systems Vital Signs Vitals Vital Signs Date Time Temp Pulse Resp B/P Pulse Ox O2 Delivery O2 Flow Rate FiO2 04/05/17 05:21 75 15 96 30 04/05/17 04:00 98.3 84/51 04/05/17 03:00 Mechanical Ventilator Intake and Output 04/04/17 04/04/17 04/05/17 15:00 23:00 07:00 Intake Total 1065.85 ml 1204.99 ml 1020 ml Output Total 2000 ml 900 ml 1275 ml Balance -934.15 ml 304.99 ml -255 ml Exam HEENT exam; supple neck, no JVD. No lymphadenopathy. Midline trachea. No thyromegaly. Tracheostomy in place. Patient has fair dentition. Pupils are small bilaterally. There are multiple well-healed left temporoparietal scars. Next Chest exam; clear to auscultation. S1-S2 audible, no murmurs. Regular rhythm. Abdomen exam; soft, G-tube in place. Abdomen is mildly protuberant. Bowel sounds audible. No organomegaly. Extremity exam; no peripheral edema. Patient does have severe contractures involving all 4 extremities. Back examination; dressing applied over sacrum. [employer]ATING [employer]ING [employer]PER[employer]OR exam; patient remains unresponsive. Results Result Diagram: 04/04/17 1100 04/05/17 0510 Results 24 hrs Laboratory Tests Test 04/04/17 11:00 04/04/17 19:00 04/05/17 00:55 04/05/17 05:10 White Blood Count 14.3 #H Red Blood Count 2.68 L Hemoglobin 8.2 L Hematocrit 26.0 L Mean Corpuscular Volume 97.0 Mean Corpuscular Hemoglobin 30.6 Mean Corpuscular Hemoglobin Concent 31.5 L Red Cell Distribution Width 21.4 H Platelet Count 28 *L Mean Platelet Volume 12.8 H Neutrophils % Segmented Neutrophils % (Manual) 85 H Band Neutrophils % (Manual) 11 H Lymphocytes % Lymphocytes % (Manual) 2 L Monocytes % Monocytes % (Manual) 1 Eosinophils % Eosinophils % (Manual) 1 Basophils % Nucleated Red Blood Cells % 0.0 Neutrophils # (Manual) 12.4 H Band Neutrophils # 1.5 H Absolute Lymphocytes (Manual) 0.2 L Lymphocytes # 0.3 L Monocytes # 0.1 L Absolute Monocytes (Manual) 0.1 L Eosinophils # 0.1 Basophils # Nucleated Red Blood Cells # Phosphorus Level 2.0 L Magnesium Level 1.8 Lactic Acid Level 1.6 1.4 1.3 Sodium Level 155 H Potassium Level 2.7 *L Chloride Level 123 H Carbon Dioxide Level 22 Anion Gap 13 Blood Urea Nitrogen 18 Creatinine 0.93 Glucose Level 87 Calcium Level 10.6 H Medications Medications Current Medications Lansoprazole (Prevacid) 30 mg DAILY@06 GTB Last administered on 04/05/17 06:36 ; Admin Dose 30 MG; Start 04/02/17 at 06:00 Acetaminophen (Tylenol Liquid) 480 mg Q6H PRN PEG MILD PAIN LEVEL 1-3; Start at 20:30 Eye Lubricant (Artificial Tears Oph) 1 drop BID BOTH EYES Last administered on 04/05/17 08:07; Admin Dose 1 DROP; Start 04/01/17 at 21:00 Ferrous Sulfate (Feosol Liquid Cup) 300 mg BID GTB Last administered on 08:05; Admin Dose 300 MG; Start 04/02/17 at 09:00 Folic Acid (Folic Acid) 1 mg DAILY PEG Last administered on 04/05/17 08:05; Admin Dose 1 MG; Start 04/02/17 at 09:00 Lactobacillus Acidophilus/ Rhamnosus (Culturelle) 1 cap DAILY GTB Last administered on 04/05/17 08:05; Admin Dose 1 CAP; Start 04/02/17 at 09:00 Thiamine HCl (Vitamin B1) 100 mg DAILY GTB Last administered on 04/05/17 08:05 ; Admin Dose 100 MG; Start 04/02/17 at 09:00 Ascorbic Acid (Vitamin C) 250 mg TID GTB Last administered on 04/05/17 08:05; Admin Dose 250 MG; Start 04/01/17 at 21:00 Multivitamins (Multivitamin) 30 ml DAILY GTB Last administered on 04/05/17 08: 05; Admin Dose 30 ML; Start 04/02/17 at 09:00 Miscellaneous Information 14.2 gm Q3D TP ; Start 04/01/17 at 20:30; Status UNV Polyethylene Glycol 8.5 gm 8.5 gm DAILY NGT Last administered on 04/05/17 08: 05; Admin Dose 8.5 GM; Start 04/02/17 at 09:00 Norepinephrine/ Dextrose (Levophed/D5W) 500 ml @ 1.87 mls/hr TITRATE IV Last administered on 04/04/17 03:06; Admin Dose 37.5 MLS/HR; Start 04/02/17 at 03:00 Miscellaneous Information This patient chapman... PRN PRN XX WOUND CARE; Start 04/02 at 08:30 Meropenem/Sodium Chloride (Merrem 1 Gm/50 ml (Pmx)) 50 ml @ 200 mls/hr Q8 IVPB Last administered on 04/05/17 06:42; Admin Dose 200 MLS/HR; Start 04/02/17 at 14:00 Miscellaneous Information SILVER CHLORIDE GEL: PLEASE ASK FAMILY TO BR... Q8H XX ; Start 04/03/17 at 16:30 Dextrose 1,000 ml @ 125 mls/hr Q8H IV Last administered on 04/04/17 19:09; Admin Dose 125 MLS/HR; Start 04/04/17 at 10:00 Levetiracetam (Keppra 1,000mg/ 100ml (Pmx)) 100 ml @ 400 mls/hr Q12 IVPB Last administered on 04/05/17 08:06; Admin Dose 400 MLS/HR; Start 04/04/17 at 22:30 Desmopressin Acetate (Ddavp) 2 mcg BID SC Last administered on 04/04/17 20:39 ; Admin Dose 2 MCG; Start 04/04/17 at 12:30 Amikacin Sulfate AMIKACIN PER PHARMACY NOTE XX ; Start 04/04/17 at 11:30 Amikacin Sulfate/ Sodium Chloride (Amikacin/NS) 104 ml @ 102 mls/hr Q24H IVPB Last administered on 04/04/17 13:42; Admin Dose 102 MLS/HR; Start 04/04/17 at 13:00 Collagenase (Santyl) 1 applic DAILY TOP Last administered on 04/05/17 08:06; Admin Dose 1 APPLIC; Start 04/05/17 at 09:00 Collagenase 1 applic 1 applic PRN PRN TOP PRN; Start 04/05/17 at 00:30 Potassium Chloride (KCl 40 MEQ/250 ML NS) 250 ml @ 62.5 mls/hr Q4H IVPB Last administered on 04/05/17 08:07; Admin Dose 62.5 MLS/HR; Start 04/05/17 at 08:00 ; Stop 04/05/17 at 19:59 JUDI VAZQUEZ Apr 05, 2017 08:45
--- NOTE | 2017-04-05 09:33 | PN ---
Date/Time of Note Date/Time of Note DATE: 04/05/17 TIME: 09:27 Assessment/Plan VTE Prophylaxis VTE Prophylaxis Intervention: SCD's Lines/Catheters IV Catheter Type (from [facility]): PICC Line Central line still needed: Yes Urinary Cath still in place: Yes Reason Cath still needed: urinary retention Assessment/Plan Chief Complaint/Hosp Course Assessment/Plan: 41-year-old male coming from [facility] with: 1. Septic shock-likely secondary to urinary tract infection, as well as pneumonia and sacral ulcer sections. Patient has history of prior multiple UTIs. Wound culture does show positive E. coli, enterococcus, and gram- negative jimmie infection. -Continue pressor support and try to wean off as tolerated, aggressive IV fluid hydration, broad-spectrum antibiotics meropenem and amikacin for now -Follow-up infectious disease consult recommendations. 2. Bilateral pneumonia and pleural effusion -follow-up chest x-ray in the morning, continue broad-spectrum antibiotics, follow-up final culture results. 3. Clinic staged sacral ulcers for which at least 1 is stage IV -Medicines per wound care consult and patient, continue broad-spectrum antibiotic, follow up final culture results 4. History of seizure disorder -less seizures in the last 24 hours since increasing the Keppra dose yesterday -Continue Keppra to 1000 IV twice daily. - Monitor for seizure activity, if worsens, consider neurology consult 6. Previous cerebrovascular accident -monitor for now 7. Chronic vegetative state -trach and PEG 8. Chronic respiratory failure, vent dependent -positive pleural effusions found on chest x-ray - continue oxygen supplementation via mechanical ventilation, follow pulmonary recommendations 9. Status post PEG tube placement -continue PEG tube feeds 10. anemia of chronic disease -monitor H and H. 11. Hypernatremia: Worsened today: 147-> 151->155. Started on D5W IV fluids as well as subcutaneous desmopressin yesterday -Off of desmopressin now, continue free water as ordered this morning, D5W IV fluids, monitor BMP in a.m. 12. possible Diabetes insipidus: Patient with increased urine output. -Off desmopressin now, monitor 13. Hypokalemia, low phosphorus: We will replete potassium again today, along with low phosphorus 14. Thrombocytopenia: Lovenox has been held, no signs of bleeding. -Follow-up stat CBC, monitor for any signs of bleeding. Obviously hold all anticoagulants including heparin products. Critical care time spent on patient care today: 45 minutes Problems: Subjective 24 Hr Interval Summary Free Text/Dictation Patient still on pressor support, adequate urine output. Had some bradycardia last night, presently still in normal sinus rhythm. Seen by pulmonary team this morning, infectious disease team and wound care team yesterday. Exam/Review of Systems Vital Signs Vitals Vital Signs Date Time Temp Pulse Resp B/P Pulse Ox O2 Delivery O2 Flow Rate FiO2 04/05/17 09:08 62 18 98 30 04/05/17 09:00 98/63 Mechanical Ventilator 04/05/17 08:00 98.6 Intake and Output 04/04/17 04/04/17 04/05/17 15:00 23:00 07:00 Intake Total 1065.85 ml 1204.99 ml 1020 ml Output Total 2000 ml 900 ml 1275 ml Balance -934.15 ml 304.99 ml -255 ml Exam Constitutional: non-verbal Head: normocephalic ENMT: other (+ tracheostomy) Neck: supple Respiratory: some congested cough, crackles/rales, diminished breath sounds, other (Bilateral Coarse BS+) Cardiovascular: nl pulses, regular rate and rhythm Gastrointestinal: non-tender, other (G tube in place ), soft Results Result Diagram: 04/04/17 1100 04/05/17 0510 Results 24 hrs Laboratory Tests Test 04/04/17 11:00 04/04/17 19:00 04/05/17 00:55 04/05/17 05:10 White Blood Count 14.3 #H Red Blood Count 2.68 L Hemoglobin 8.2 L Hematocrit 26.0 L Mean Corpuscular Volume 97.0 Mean Corpuscular Hemoglobin 30.6 Mean Corpuscular Hemoglobin Concent 31.5 L Red Cell Distribution Width 21.4 H Platelet Count 28 *L Mean Platelet Volume 12.8 H Neutrophils % Segmented Neutrophils % (Manual) 85 H Band Neutrophils % (Manual) 11 H Lymphocytes % Lymphocytes % (Manual) 2 L Monocytes % Monocytes % (Manual) 1 Eosinophils % Eosinophils % (Manual) 1 Basophils % Nucleated Red Blood Cells % 0.0 Neutrophils # (Manual) 12.4 H Band Neutrophils # 1.5 H Absolute Lymphocytes (Manual) 0.2 L Lymphocytes # 0.3 L Monocytes # 0.1 L Absolute Monocytes (Manual) 0.1 L Eosinophils # 0.1 Basophils # Nucleated Red Blood Cells # Phosphorus Level 2.0 L Magnesium Level 1.8 Lactic Acid Level 1.6 1.4 1.3 Sodium Level 155 H Potassium Level 2.7 *L Chloride Level 123 H Carbon Dioxide Level 22 Anion Gap 13 Blood Urea Nitrogen 18 Creatinine 0.93 Glucose Level 87 Calcium Level 10.6 H Medications Medications Current Medications Lansoprazole (Prevacid) 30 mg DAILY@06 GTB Last administered on 04/05/17 06:36 ; Admin Dose 30 MG; Start 04/02/17 at 06:00 Acetaminophen (Tylenol Liquid) 480 mg Q6H PRN PEG MILD PAIN LEVEL 1-3; Start at 20:30 Eye Lubricant (Artificial Tears Oph) 1 drop BID BOTH EYES Last administered on 04/05/17 08:07; Admin Dose 1 DROP; Start 04/01/17 at 21:00 Ferrous Sulfate (Feosol Liquid Cup) 300 mg BID GTB Last administered on 08:05; Admin Dose 300 MG; Start 04/02/17 at 09:00 Folic Acid (Folic Acid) 1 mg DAILY PEG Last administered on 04/05/17 08:05; Admin Dose 1 MG; Start 04/02/17 at 09:00 Lactobacillus Acidophilus/ Rhamnosus (Culturelle) 1 cap DAILY GTB Last administered on 04/05/17 08:05; Admin Dose 1 CAP; Start 04/02/17 at 09:00 Thiamine HCl (Vitamin B1) 100 mg DAILY GTB Last administered on 04/05/17 08:05 ; Admin Dose 100 MG; Start 04/02/17 at 09:00 Ascorbic Acid (Vitamin C) 250 mg TID GTB Last administered on 04/05/17 08:05; Admin Dose 250 MG; Start 04/01/17 at 21:00 Multivitamins (Multivitamin) 30 ml DAILY GTB Last administered on 04/05/17 08: 05; Admin Dose 30 ML; Start 04/02/17 at 09:00 Miscellaneous Information 14.2 gm Q3D TP ; Start 04/01/17 at 20:30; Status UNV Polyethylene Glycol 8.5 gm 8.5 gm DAILY NGT Last administered on 04/05/17 08: 05; Admin Dose 8.5 GM; Start 04/02/17 at 09:00 Norepinephrine/ Dextrose (Levophed/D5W) 500 ml @ 1.87 mls/hr TITRATE IV Last administered on 04/04/17 03:06; Admin Dose 37.5 MLS/HR; Start 04/02/17 at 03:00 Miscellaneous Information This patient chapman... PRN PRN XX WOUND CARE; Start 04/02 at 08:30 Meropenem/Sodium Chloride (Merrem 1 Gm/50 ml (Pmx)) 50 ml @ 200 mls/hr Q8 IVPB Last administered on 04/05/17 06:42; Admin Dose 200 MLS/HR; Start 04/02/17 at 14:00 Miscellaneous Information SILVER CHLORIDE GEL: PLEASE ASK FAMILY TO BR... Q8H XX ; Start 04/03/17 at 16:30 Dextrose 1,000 ml @ 125 mls/hr Q8H IV Last administered on 04/05/17 08:40; Admin Dose 125 MLS/HR; Start 04/04/17 at 10:00 Levetiracetam (Keppra 1,000mg/ 100ml (Pmx)) 100 ml @ 400 mls/hr Q12 IVPB Last administered on 04/05/17 08:06; Admin Dose 400 MLS/HR; Start 04/04/17 at 22:30 Amikacin Sulfate AMIKACIN PER PHARMACY NOTE XX ; Start 04/04/17 at 11:30 Amikacin Sulfate/ Sodium Chloride (Amikacin/NS) 104 ml @ 102 mls/hr Q24H IVPB Last administered on 04/04/17 13:42; Admin Dose 102 MLS/HR; Start 04/04/17 at 13:00 Collagenase (Santyl) 1 applic DAILY TOP Last administered on 04/05/17 08:06; Admin Dose 1 APPLIC; Start 04/05/17 at 09:00 Collagenase 1 applic 1 applic PRN PRN TOP PRN; Start 04/05/17 at 00:30 Potassium Chloride (KCl 40 MEQ/250 ML NS) 250 ml @ 62.5 mls/hr Q4H IVPB Last administered on 04/05/17 08:07; Admin Dose 62.5 MLS/HR; Start 04/05/17 at 08:00 ; Stop 04/05/17 at 19:59 Sodium Phosphate (Neutra-Phos) 250 mg BID PO ; Start 04/05/17 at 09:30; Stop at 10:00; Status BECKI DUENAS Apr 05, 2017 09:33
[2017-04-05] MEDS: NEUTRA-PHOS 250 MG PACKET PO SCH ×2 (10:26→21:28)
[2017-04-05] MEDS ORDERED: POTASSIUM PHOSPHATE 40 MEQ in SOD CHLORIDE 0.9% 250 ML IVPB ONE (11:00)
[2017-04-05] MEDS: BALSAM PERU/CASTOR OIL 60 GM TUBE TOP SCH (11:51)
--- NOTE | 2017-04-05 12:44 | PN ---
DATE: 04/05/2017 SUBJECTIVE DATA: The patient is noncommunicative, lying comfortably in bed. He is on Levophed drip and in no distress. Temperature max 99.6, temperature current 98.6, pulse 60, respirations 20, blood pressure 98/63, saturation 97 on 30 FiO2. LABORATORY AND DIAGNOSTIC DATA: No labs this morning. White blood cell count yesterday was 14.3 with platelets 28, BUN today 18, creatinine 0.93. Microbiology, blood culture on admission grew E. coli resistant to ampicillin, gentamicin, Levaquin, and Bactrim. Sputum culture grew Providencia stuartii. Urine culture grew E. coli and Proteus mirabilis. Wound cultures growing E. coli, Proteus mirabilis and VRE. ALLERGIES: KEFLEX. INDWELLINGS: Trach, PEG, German right femoral triple lumen catheter. ANTIMICROBIALS: Amikacin, meropenem, status post vancomycin. PHYSICAL EXAMINATION: GENERAL: Chronically ill-appearing, middle-aged man, who is noncommunicative, lying comfortably in bed. HEENT: Head atraumatic, normocephalic. Sclerae anicteric. Buccal mucosa dry. NECK: Supple. Tracheostomy present. CHEST: Rise symmetrical. Breath sounds diminished at the bases. HEART: S1, S2. ABDOMEN: Distended, soft. Bowel sounds hypoactive. EXTREMITIES: Without cyanosis. SKIN: With multiple chronic wounds. ASSESSMENT: 1. Severe sepsis with shock. 2. Escherichia coli bacteremia secondary to infected wounds and urinary tract infection. 3. Multidrug resistant urinary tract infection. 4. Multiple infected chronic wounds. 5. Chronic encephalopathy. 6. Chronic respiratory failure. 7. Anemia and thrombocytopenia. 8. History of seizures and cerebrovascular accident. PLAN: The patient remains on Levophed drip. He is on appropriate antimicrobials. We are going to add Daptomycin to cover VRE that he is growing in his wounds. Continue local wound care. Consider surgical evaluation for possible debridement. Consider to change femoral catheter. Dictated By: Ree Marie NP /vincent/reynaldo /Document#: [id number] MISTI
[2017-04-05 14:24] LABS: ABNORMAL IP MESSAGE 1; MEAN CORPUSCULAR HEMOGLOBIN 29.9 pg (29.0-33.0); MEAN CORPUSCULAR HGB CONC 30.8 g/dl (32.0-37.0); MEAN PLATELET VOLUME 12.6 fl (7.4-10.4); POSITIVE DIFF @See below; RED BLOOD COUNT 2.68 10^6/ul (4.70-6.10); RED CELL DISTRIBUTION WIDTH 21.6 % (11.5-14.5); WHITE BLOOD COUNT 10.6 10^3/ul (4.8-10.8)
[2017-04-05 14:42] LABS: PLATELET COUNT 25 10^3/UL (140-415)
[2017-04-05] MEDS ORDERED: SOD CHLORIDE 0.45% 1,000 ML IV SCH (15:30)
[2017-04-05 15:55] LABS: EOSINOPHILS # 0.5 10^3/ul (0.0-0.5); EOSINOPHILS % (M) 5 % (0.0-7.0); LYMPHOCYTES # 0.8 10^3/ul (0.8-2.9); MONOCYTE # 0.2 10^3/ul (0.3-0.9); MONOCYTES % (M) 2 % (0-11)
[2017-04-05] MEDS: DAPTOMYCIN 410 MG in SOD CHLORIDE 0.9% 100 ML IVPB SCH (15:59)
[2017-04-05] MEDS ORDERED: DIPHENHYDRAMINE 50 MG INJ IV ONE (21:00)
[2017-04-06] VITALS (95 sets, daily range): BP systolic 90–117; BP diastolic 55–83; PULSE 53–81; RESP 11–24
[2017-04-06] MEDS: MEROPENEM 1 GM/50ML(PMX) 50 ML IVPB SCH ×4 (00:43→21:57)
[2017-04-06] MEDS: DEXTROSE 5% 1,000 ML IV SCH ×3 (01:45→18:00)
[2017-04-06] MEDS: AMIKACIN 1,000 MG in SOD CHLORIDE 0.9% 250 ML IVPB SCH (01:49)
[2017-04-06] MEDS: LANSOPRAZOLE 30 MG CAP GTB SCH (05:43)
[2017-04-06 06:41] LABS: ABNORMAL IP MESSAGE 1; HEMATOCRIT 27.1 % (42.0-52.0); HEMOGLOBIN 8.3 g/dl (14.0-18.0); MEAN CORPUSCULAR HEMOGLOBIN 29.2 pg (29.0-33.0); MEAN CORPUSCULAR HGB CONC 30.6 g/dl (32.0-37.0); MEAN CORPUSCULAR VOLUME 95.4 fl (82.0-101.0); MEAN PLATELET VOLUME 12.7 fl (7.4-10.4); POSITIVE DIFF @See below; RED BLOOD COUNT 2.84 10^6/ul (4.70-6.10); RED CELL DISTRIBUTION WIDTH 20.7 % (11.5-14.5); WHITE BLOOD COUNT 7.8 10^3/ul (4.8-10.8)
[2017-04-06 06:56] LABS: PLATELET COUNT 19 10^3/UL (140-415)
[2017-04-06 07:00] LABS: CALCIUM 9.6 mg/dl (8.4-10.2); CREATININE 0.71 mg/dl (0.61-1.24); POTASSIUM 3.4 mmol/L (3.5-5.1)
--- NOTE | 2017-04-06 07:48 | RADRPT ---
PROCEDURE: XR Chest. CLINICAL INDICATION: Shortness of breath. TECHNIQUE: Single frontal view. COMPARISON: 04/04/2017. FINDINGS: The tracheostomy tube is in satisfactory position. Pulmonary edema and atelectasis at the lung base s is unchanged. The heart is enlarged. There are moderate bilateral pleural effusions, unchanged. There is no pneumothorax. IMPRESSION: 1. No change from 04/04/2017. RPTAT: QQ .Sulaiman Vazquez MD, MD Date Time Electronically viewed and signed by .Sulaiman Vazquez MD, MD on 04/06/2017 07:48 .R/
[2017-04-06 08:54] LABS: MAGNESIUM 1.3 mg/dl (1.7-2.5); PHOSPHORUS 3.1 mg/dl (2.5-4.9)
[2017-04-06] MEDS: MULTIVITAMINS 30 ML CUP GTB SCH (09:00)
[2017-04-06] MEDS: LEVETIRACETAM 1000 MG (PMX) 100 ML IVPB SCH ×2 (09:08→21:57)
[2017-04-06] MEDS: ARTIFICIAL TEARS 15 ML OPH BOTH EYES SCH ×2 (09:08→21:56)
[2017-04-06] MEDS: LACTOBACILLUS RHAMNOSUS CAP GTB SCH (09:09)
[2017-04-06] MEDS: BALSAM PERU/CASTOR OIL 60 GM TUBE TOP SCH (09:09)
[2017-04-06] MEDS: POLYETHYLENE GLYCOL 17 GM PACKET NGT SCH (09:09)
[2017-04-06] MEDS: COLLAGENASE 30 GM TUBE TOP SCH (09:09)
[2017-04-06] MEDS: NEUTRA-PHOS 250 MG PACKET PO SCH (09:09)
[2017-04-06] MEDS: THIAMINE 100 MG TAB GTB SCH (09:09)
[2017-04-06] MEDS: FOLIC ACID 1 MG TAB PEG SCH (09:09)
[2017-04-06] MEDS: ASCORBIC ACID 250 MG TAB GTB SCH ×3 (09:09→21:57)
[2017-04-06] MEDS: FERROUS SULFATE 60 MG/ML 5ML CUP GTB SCH ×2 (09:09→21:57)
[2017-04-06 09:19] LABS: ANISOCYTOSIS 2+ (0-0); BASOPHILS % (M) 1 % (0-2); EOSINOPHILS % (M) 8 % (0-7); ERYTHROBLAST% (NRBC) (M) 1 % (0-0); GIANT THROMBO% (M) 4 % (0-0); MONOCYTES % (M) 5 % (0-11); OVALOCYTES 1+ (0-0); PLATELET ESTIMATE SIG DECREASED; POLYCHROMASIA 1+ (0-0)
[2017-04-06] MEDS ORDERED: MAGNESIUM SULFATE 1 GM/D5W 100 ML IVPB ONE (10:00)
[2017-04-06] MEDS ORDERED: POTASSIUM CHLORIDE 250 ML IVPB SCH (10:30)
[2017-04-06] MEDS ORDERED: MAGNESIUM SULFATE 2 GM/50 ML 50 ML IVPB ONE (10:30)
--- NOTE | 2017-04-06 12:06 | PN ---
DATE: 03/10/2017 SUBJECTIVE DATA: No acute changes. The patient remains on Levophed drip. He is lying comfortably in bed. Noncommunicative. Eyes open. He is in no distress. OBJECTIVE DATA: VITAL SIGNS: Temperature 95.6, pulse 66, respirations 15, blood pressure 98/74, saturation 95 on vent. LABORATORY AND DIAGNOSTIC DATA: WBC 7.8, H and H 8.3 and 27.1, platelets 19, BUN 15, creatinine 0.71. MICROBIOLOGY: Wound culture growing E coli, Proteus mirabilis, VRE, MRSA. Urine culture growing E coli, Proteus mirabilis. Blood culture on admission grew E coli. INDWELLINGS: Trach, PEG, German, right femoral triple-lumen catheter. DIAGNOSTICS: Chest x-ray revealed no change. ANTIMICROBIALS: The patient is on daptomycin, amikacin and meropenem. PHYSICAL EXAMINATION: GENERAL: This is a chronically ill-appearing, vegetative, middle- aged man, who is in no distress. HEENT: Head atraumatic, normocephalic. Sclerae anicteric. Buccal mucosa dry. NECK: Supple. Tracheostomy present. LUNGS: Chest rise symmetrical. Breath sounds diminished at the bases. HEART: S1, S2. ABDOMEN: Soft, bowel sounds present. EXTREMITIES: Without cyanosis, wasted, contractures. SKIN: With multiple unstageable decubitus. ASSESSMENT: 1. Septic shock. 2. Escherichia coli bacteremia secondary to urinary tract infection and multiple infected wounds. 3. Multidrug-resistant urinary tract infection. 4. Chronic decubitus. 5. Chronic encephalopathy. 6. Thrombocytopenia. 7. Anemia. 8. History of seizures. 9. Allergy to Keflex. PLAN: The patient remains on pressors. He is on appropriate antibiotics. White blood cell count trending down. Renal function within normal limits. Blood cultures repeated yesterday pending. We will continue him on current regimen. Continue local wound care as per surgical team. Monitor platelet count. Follow recommendations of consultants. Dictated By: Ree Marie NP /vincent/shana /Document#: [id number]
--- NOTE | 2017-04-06 12:15 | PN ---
Date/Time of Note Date/Time of Note DATE: 04/06/17 TIME: 11:29 Assessment/Plan VTE Prophylaxis VTE Prophylaxis Intervention: SCD's Lines/Catheters IV Catheter Type (from [facility]): Central Line Central line still needed: Yes Urinary Cath still in place: Yes Reason Cath still needed: urinary retention Assessment/Plan Chief Complaint/Hosp Course Assessment/Plan: 41-year-old male coming from senior living with: 1. Septic shock-likely secondary to urinary tract infection, as well as pneumonia and sacral ulcer sections. Patient has history of prior multiple UTIs. Wound culture does show positive E. coli, enterococcus, Proteus, and MRSA -Continue pressor support and try to wean off as tolerated, aggressive IV fluid hydration, broad-spectrum antibiotics meropenem and amikacin for now -Follow-up infectious disease consult recommendations. 2. Bilateral pneumonia and pleural effusion -follow-up chest x-ray in the morning, continue broad-spectrum antibiotics, follow-up final culture results. 3. Clinic staged sacral ulcers for which at least 1 is stage IV -Medicines per wound care consult and patient, continue broad-spectrum antibiotic, follow up final culture results 4. History of seizure disorder -with new possible mild seizure activity in the last 24 hour -Continue Keppra to 1000 IV twice daily. -We will consider neurology consult 6. Previous cerebrovascular accident -monitor for now 7. Chronic vegetative state -trach and PEG 8. Chronic respiratory failure, vent dependent -positive pleural effusions found on chest x-ray - continue oxygen supplementation via mechanical ventilation, follow pulmonary recommendations 9. Status post PEG tube placement -continue PEG tube feeds 10. anemia of chronic disease -monitor H and H. 11. Hypernatremia: Proved today: 147-> 151->155 -> 145. -continue free water as ordered this morning, D5W IV fluids, monitor BMP in a.m. 12. possible Diabetes insipidus: Patient with increased urine output. -Off desmopressin now, monitor 13. Hypokalemia, low phosphorus: We will replete potassium again today, along with low phosphorus 14. Thrombocytopenia: Lovenox has been held, no signs of bleeding. 31- > 25-> 19 -Continue to hold all anticoagulants, will order for 1 unit platelet transfusion today Critical care time spent on patient care today: 45 minutes Problems: Subjective 24 Hr Interval Summary Free Text/Dictation Still on pressor support, no signs of any active bleeding. Exam/Review of Systems Vital Signs Vitals Vital Signs Date Time Temp Pulse Resp B/P Pulse Ox O2 Delivery O2 Flow Rate FiO2 04/06/17 10:00 66 15 94/65 95 04/06/17 09:00 Mechanical Ventilator 04/06/17 08:00 98.4 04/06/17 05:26 30 Intake and Output 04/05/17 04/05/17 04/06/17 15:00 23:00 07:00 Intake Total 1704.34 ml 1924.36 ml 1637.5 ml Output Total 960 ml 1185 ml 1165 ml Balance 744.34 ml 739.36 ml 472.5 ml Exam Constitutional: non-verbal Head: normocephalic ENMT: other (+ tracheostomy) Neck: supple Respiratory: some congested cough, crackles/rales, diminished breath sounds, other (Bilateral Coarse BS+) Cardiovascular: nl pulses, regular rate and rhythm Gastrointestinal: non-tender, other (G tube in place ), soft Results Result Diagram: 04/06/17 0530 04/06/17 0530 Results 24 hrs Laboratory Tests Test 04/05/17 13:55 04/06/17 05:30 White Blood Count 10.6 # 7.8 # Red Blood Count 2.68 L 2.84 L Hemoglobin 8.0 L 8.3 L Hematocrit 26.0 L 27.1 L Mean Corpuscular Volume 97.0 95.4 Mean Corpuscular Hemoglobin 29.9 29.2 Mean Corpuscular Hemoglobin Concent 30.8 L 30.6 L Red Cell Distribution Width 21.6 H 20.7 H Platelet Count 25 *L 19 #*L Mean Platelet Volume 12.6 H 12.7 H Neutrophils % Segmented Neutrophils % (Manual) 85 H 77 Lymphocytes % Lymphocytes % (Manual) 8 L 9 L Monocytes % Monocytes % (Manual) 2 5 Eosinophils % Eosinophils % (Manual) 5 8 H Basophils % Nucleated Red Blood Cells % 0.0 1 H Neutrophils # (Manual) Absolute Lymphocytes (Manual) 0.8 0.7 L Lymphocytes # 0.8 Monocytes # 0.2 L Absolute Monocytes (Manual) 0.2 L 0.3 Eosinophils # 0.5 Basophils # Nucleated Red Blood Cells # Basophils % (Manual) 1 Basophils # (Manual) 0.0 Thrombocytosis 4 H Platelet Estimate SIG DECREASED Polychromasia 1+ Anisocytosis 2+ Macrocytosis 1+ Ovalocytes 1+ Sodium Level 145 H Potassium Level 3.4 L Chloride Level 114 H Carbon Dioxide Level 22 Anion Gap 12 Blood Urea Nitrogen 15 Creatinine 0.71 Glucose Level 113 Calcium Level 9.6 Phosphorus Level 3.1 Magnesium Level 1.3 L Medications Medications Current Medications Lansoprazole (Prevacid) 30 mg DAILY@06 GTB Last administered on 04/06/17 05:43 ; Admin Dose 30 MG; Start 04/02/17 at 06:00 Acetaminophen (Tylenol Liquid) 480 mg Q6H PRN PEG MILD PAIN LEVEL 1-3; Start at 20:30 Eye Lubricant (Artificial Tears Oph) 1 drop BID BOTH EYES Last administered on 04/06/17 09:08; Admin Dose 1 DROP; Start 04/01/17 at 21:00 Ferrous Sulfate (Feosol Liquid Cup) 300 mg BID GTB Last administered on 09:09; Admin Dose 300 MG; Start 04/02/17 at 09:00 Folic Acid (Folic Acid) 1 mg DAILY PEG Last administered on 04/06/17 09:09; Admin Dose 1 MG; Start 04/02/17 at 09:00 Lactobacillus Acidophilus/ Rhamnosus (Culturelle) 1 cap DAILY GTB Last administered on 04/06/17 09:09; Admin Dose 1 CAP; Start 04/02/17 at 09:00 Thiamine HCl (Vitamin B1) 100 mg DAILY GTB Last administered on 04/06/17 09:09 ; Admin Dose 100 MG; Start 04/02/17 at 09:00 Ascorbic Acid (Vitamin C) 250 mg TID GTB Last administered on 04/06/17 09:09; Admin Dose 250 MG; Start 04/01/17 at 21:00 Multivitamins (Multivitamin) 30 ml DAILY GTB Last administered on 04/05/17 08: 05; Admin Dose 30 ML; Start 04/02/17 at 09:00 Polyethylene Glycol 8.5 gm 8.5 gm DAILY NGT Last administered on 04/06/17 09: 09; Admin Dose 8.5 GM; Start 04/02/17 at 09:00 Norepinephrine 16 mg/Dextrose 500 ml @ 1.87 mls/hr TITRATE IV Last administered on 04/05/17 12:58; Admin Dose 5.62 MLS/HR; Start 04/02/17 at 03:00 Meropenem/Sodium Chloride 50 ml @ 200 mls/hr Q8 IVPB Last administered on 04/06 05:43; Admin Dose 200 MLS/HR; Start 04/02/17 at 14:00 Dextrose 1,000 ml @ 125 mls/hr Q8H IV Last administered on 04/06/17 01:45; Admin Dose 125 MLS/HR; Start 04/04/17 at 10:00 Levetiracetam (Keppra 1,000mg/ 100ml (Pmx)) 100 ml @ 400 mls/hr Q12 IVPB Last administered on 04/06/17 09:08; Admin Dose 400 MLS/HR; Start 04/04/17 at 22:30 Amikacin Sulfate (Amikacin Iv Per Pharmacy) AMIKACIN PER PHARMACY NOTE XX ; Start 04/04/17 at 11:30 Collagenase (Santyl) 1 applic DAILY TOP Last administered on 04/06/17 09:09; Admin Dose 1 APPLIC; Start 04/05/17 at 09:00 Collagenase 1 applic 1 applic PRN PRN TOP PRN; Start 04/05/17 at 00:30 Amikacin Sulfate 1000 mg/Sodium Chloride 254 ml @ 254 mls/hr Q36H IVPB Last administered on 04/06/17 01:49; Admin Dose 254 MLS/HR; Start 04/06/17 at 02:00 Daptomycin 410 mg/ Sodium Chloride 100 ml @ 200 mls/hr Q24H IVPB Last administered on 04/05/17 15:59; Admin Dose 200 MLS/HR; Start 04/05/17 at 15:00 Magnesium Sulfate 50 ml @ 25 mls/hr ONCE ONCE IVPB ; Start 04/06/17 at 10:30; Stop 04/06/17 at 12:29; Status UNV Potassium Chloride 250 ml @ 62.5 mls/hr Q4H IVPB ; Start 04/06/17 at 10:30; Stop 04/06/17 at 18:29; Status UNV Potassium Chloride (KCl 40 MEQ/250 ML NS) 250 ml @ 62.5 mls/hr Q4H IVPB ; Start 04/06/17 at 11:00; Stop 04/06/17 at 18:59; Status BECKI DUENAS Apr 06, 2017 11:39
[2017-04-06] MEDS: POTASSIUM CHLORIDE 250 ML IVPB SCH ×2 (12:48→15:05)
[2017-04-06 13:08] LABS: PLATELET COUNT 22 10^3/UL (140-415)
[2017-04-06 13:16] LABS: INR 1.16; PROTIME 14.8 Sec (12.2-14.2); PT RATIO 1.2
[2017-04-06 13:17] LABS: THROMBIN TIME 19.3 SEC (13.8-19.1)
--- NOTE | 2017-04-06 13:17 | CONS ---
Date/Time of Note Date/Time of Note DATE: 04/06/17 TIME: 13:14 Assessment/Plan Assessment/Plan Additional Assessment/Plan Ventilator setting; AC of 12, tidal volume 500, PEEP of 5, 30% FiO2. Patient currently on Levophed at 4 mics per minute. Assessment and recommendations; 1. Patient admitted with severe sepsis from multiple decubitus ulcers. Currently on broad-spectrum antibiotic coverage. 2. Improving shock. 2. Stable seizure disorder. 4. Chronic respiratory failure due to advanced anoxic brain injury. 5. Improving hypernatremia and hyperchloremia. 6. Anemia and thrombocytopenia. No overt bleeding noted. 7. Likely underlying cardiomyopathy as well. Continue current treatment. Consultation Date/Type/Reason Admit Date/Time Apr 02, 2017 at 02:10 Type of Consultation: Pulmonary/critical care 24 HR Interval Summary Free Text/Dictation Patient's condition remains critical but improving. Remains unresponsive which is his underlying mental status due to advanced anoxic brain injury. Patient has remained seizure-free. General exam; young male, on ventilator via tracheostomy, unresponsive, currently in no distress. Exam/Review of Systems Vital Signs Vitals Vital Signs Date Time Temp Pulse Resp B/P Pulse Ox O2 Delivery O2 Flow Rate FiO2 04/06/17 11:25 59 19 97 30 04/06/17 10:00 94/65 04/06/17 09:00 Mechanical Ventilator 04/06/17 08:00 98.4 Intake and Output 04/05/17 04/05/17 04/06/17 15:00 23:00 07:00 Intake Total 1704.34 ml 1924.36 ml 1637.5 ml Output Total 960 ml 1185 ml 1165 ml Balance 744.34 ml 739.36 ml 472.5 ml Exam HEENT exam; supple neck, no JVD. No lymphadenopathy. Midline trachea. No thyromegaly. Tracheostomy in place. Insertion site is clean. Patient has well -healed left temporoparietal scars. Dentition is fair. Chest exam; diminished but clear breath sounds. S1-S2 audible, no murmurs. Regular rhythm. Abdomen exam; soft, no organomegaly. G-tube in place. Bowel sounds audible. Next Extremity exam; no peripheral edema. Patient does have contractures involving all 4 extremities. Back examination; dressing applied over sacrum. 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 Results Result Diagram: 8/30/17 1224 04/06/17 0530 Results 24 hrs Laboratory Tests Test 04/05/17 13:55 04/06/17 05:30 04/06/17 12:24 White Blood Count 10.6 # 7.8 # Red Blood Count 2.68 L 2.84 L Hemoglobin 8.0 L 8.3 L Hematocrit 26.0 L 27.1 L Mean Corpuscular Volume 97.0 95.4 Mean Corpuscular Hemoglobin 29.9 29.2 Mean Corpuscular Hemoglobin Concent 30.8 L 30.6 L Red Cell Distribution Width 21.6 H 20.7 H Platelet Count 25 *L 19 #*L 22 #*L Mean Platelet Volume 12.6 H 12.7 H Neutrophils % Segmented Neutrophils % (Manual) 85 H 77 Lymphocytes % Lymphocytes % (Manual) 8 L 9 L Monocytes % Monocytes % (Manual) 2 5 Eosinophils % Eosinophils % (Manual) 5 8 H Basophils % Nucleated Red Blood Cells % 0.0 1 H Neutrophils # (Manual) Absolute Lymphocytes (Manual) 0.8 0.7 L Lymphocytes # 0.8 Monocytes # 0.2 L Absolute Monocytes (Manual) 0.2 L 0.3 Eosinophils # 0.5 Basophils # Nucleated Red Blood Cells # Basophils % (Manual) 1 Basophils # (Manual) 0.0 Thrombocytosis 4 H Platelet Estimate SIG DECREASED Polychromasia 1+ Anisocytosis 2+ Macrocytosis 1+ Ovalocytes 1+ Sodium Level 145 H Potassium Level 3.4 L Chloride Level 114 H Carbon Dioxide Level 22 Anion Gap 12 Blood Urea Nitrogen 15 Creatinine 0.71 Glucose Level 113 Calcium Level 9.6 Phosphorus Level 3.1 Magnesium Level 1.3 L Prothrombin Time Pending Prothrombin Time Ratio Pending INR International Normalized Ratio Pending Activated Partial Thromboplast Time Pending Thrombin Time Pending Fibrinogen Pending Plasma Fibrin Degradation Products Pending D-Dimer Pending Medications Medications Current Medications Lansoprazole (Prevacid) 30 mg DAILY@06 GTB Last administered on 04/06/17 05:43 ; Admin Dose 30 MG; Start 04/02/17 at 06:00 Acetaminophen (Tylenol Liquid) 480 mg Q6H PRN PEG MILD PAIN LEVEL 1-3; Start at 20:30 Eye Lubricant (Artificial Tears Oph) 1 drop BID BOTH EYES Last administered on 04/06/17 09:08; Admin Dose 1 DROP; Start 04/01/17 at 21:00 Ferrous Sulfate (Feosol Liquid Cup) 300 mg BID GTB Last administered on 09:09; Admin Dose 300 MG; Start 04/02/17 at 09:00 Folic Acid (Folic Acid) 1 mg DAILY PEG Last administered on 04/06/17 09:09; Admin Dose 1 MG; Start 04/02/17 at 09:00 Lactobacillus Acidophilus/ Rhamnosus (Culturelle) 1 cap DAILY GTB Last administered on 04/06/17 09:09; Admin Dose 1 CAP; Start 04/02/17 at 09:00 Thiamine HCl (Vitamin B1) 100 mg DAILY GTB Last administered on 04/06/17 09:09 ; Admin Dose 100 MG; Start 04/02/17 at 09:00 Ascorbic Acid (Vitamin C) 250 mg TID GTB Last administered on 04/06/17 09:09; Admin Dose 250 MG; Start 04/01/17 at 21:00 Multivitamins (Multivitamin) 30 ml DAILY GTB Last administered on 04/05/17 08: 05; Admin Dose 30 ML; Start 04/02/17 at 09:00 Polyethylene Glycol 8.5 gm 8.5 gm DAILY NGT Last administered on 04/06/17 09: 09; Admin Dose 8.5 GM; Start 04/02/17 at 09:00 Norepinephrine 16 mg/Dextrose 500 ml @ 1.87 mls/hr TITRATE IV Last administered on 04/05/17 12:58; Admin Dose 5.62 MLS/HR; Start 04/02/17 at 03:00 Meropenem/Sodium Chloride 50 ml @ 200 mls/hr Q8 IVPB Last administered on 04/06 05:43; Admin Dose 200 MLS/HR; Start 04/02/17 at 14:00 Dextrose 1,000 ml @ 125 mls/hr Q8H IV Last administered on 04/06/17 10:30; Admin Dose 125 MLS/HR; Start 04/04/17 at 10:00 Levetiracetam (Keppra 1,000mg/ 100ml (Pmx)) 100 ml @ 400 mls/hr Q12 IVPB Last administered on 04/06/17 09:08; Admin Dose 400 MLS/HR; Start 04/04/17 at 22:30 Amikacin Sulfate (Amikacin Iv Per Pharmacy) AMIKACIN PER PHARMACY NOTE XX ; Start 04/04/17 at 11:30 Collagenase (Santyl) 1 applic DAILY TOP Last administered on 04/06/17 09:09; Admin Dose 1 APPLIC; Start 04/05/17 at 09:00 Collagenase 1 applic 1 applic PRN PRN TOP PRN; Start 04/05/17 at 00:30 Amikacin Sulfate 1000 mg/Sodium Chloride 254 ml @ 254 mls/hr Q36H IVPB Last administered on 04/06/17 01:49; Admin Dose 254 MLS/HR; Start 04/06/17 at 02:00 Daptomycin 410 mg/ Sodium Chloride 100 ml @ 200 mls/hr Q24H IVPB Last administered on 04/05/17 15:59; Admin Dose 200 MLS/HR; Start 04/05/17 at 15:00 Potassium Chloride (KCl 40 MEQ/250 ML NS) 250 ml @ 62.5 mls/hr Q4H IVPB Last administered on 04/06/17 12:48; Admin Dose 62.5 MLS/HR; Start 04/06/17 at 11:00 ; Stop 04/06/17 at 18:59 JUDI VAZQUEZ Apr 06, 2017 13:17
[2017-04-06 13:24] LABS: FIBRIN SPLIT PRODUCT <10 ug/ml (<10)
[2017-04-06] MEDS: DAPTOMYCIN 410 MG in SOD CHLORIDE 0.9% 100 ML IVPB SCH (14:45)
[2017-04-07] VITALS (96 sets, daily range): BP systolic 77–125; BP diastolic 30–116; PULSE 84–150; RESP 16–34
[2017-04-07] MEDS: DEXTROSE 5% 1,000 ML IV SCH ×4 (01:12→19:00)
[2017-04-07] MEDS ORDERED: LORAZEPAM 2 MG INJ ONE (03:22)
[2017-04-07] MEDS ORDERED: SOD CHLORIDE 0.9% 1,000 ML IV ONE ×2 (03:30→06:00)
[2017-04-07] MEDS ORDERED: LORAZEPAM 2 MG INJ IV ONE (03:30)
[2017-04-07] MEDS ORDERED: morphine 2 MG INJ ONE (04:13)
[2017-04-07] MEDS ORDERED: morphine 2 MG INJ IV ONE (04:30)
[2017-04-07] MEDS ORDERED: PHENYLephrine 20MG IN 250 ML 250 ML ONE (05:48)
[2017-04-07] MEDS: PHENYLephrine 20MG IN 250 ML 250 ML IV SCH ×2 (05:53→08:41)
[2017-04-07] MEDS: LANSOPRAZOLE 30 MG CAP GTB SCH (05:55)
[2017-04-07] MEDS: MEROPENEM 1 GM/50ML(PMX) 50 ML IVPB SCH ×3 (05:55→21:23)
[2017-04-07 06:30] LABS: ABNORMAL IP MESSAGE 1; HEMATOCRIT 26.5 % (42.0-52.0); HEMOGLOBIN 8.6 g/dl (14.0-18.0); MEAN CORPUSCULAR HGB CONC 32.5 g/dl (32.0-37.0); MEAN CORPUSCULAR VOLUME 95.7 fl (82.0-101.0); MEAN PLATELET VOLUME 13.3 fl (7.4-10.4); NUCLEATED RED BLOOD CELLS% 0.3 /100WBC (0.0-0.0); POSITIVE DIFF @See below; RED BLOOD COUNT 2.77 10^6/ul (4.70-6.10); RED CELL DISTRIBUTION WIDTH 19.9 % (11.5-14.5); WHITE BLOOD COUNT 5.9 10^3/ul (4.8-10.8)
[2017-04-07 07:04] LABS: CALCIUM 9.5 mg/dl (8.4-10.2); CREATININE 0.79 mg/dl (0.61-1.24); POTASSIUM 3.9 mmol/L (3.5-5.1)
[2017-04-07 07:05] LABS: PLATELET COUNT 17 10^3/UL (140-415)
[2017-04-07 07:12] LABS: MAGNESIUM 1.8 mg/dl (1.7-2.5); PHOSPHORUS 2.1 mg/dl (2.5-4.9)
[2017-04-07] MEDS: LEVETIRACETAM 1000 MG (PMX) 100 ML IVPB SCH ×2 (08:42→21:23)
[2017-04-07] MEDS: ARTIFICIAL TEARS 15 ML OPH BOTH EYES SCH ×3 (08:42→20:17)
[2017-04-07] MEDS: LACTOBACILLUS RHAMNOSUS CAP GTB SCH (08:43)
[2017-04-07] MEDS: FOLIC ACID 1 MG TAB PEG SCH (08:43)
[2017-04-07] MEDS: FERROUS SULFATE 60 MG/ML 5ML CUP GTB SCH ×2 (08:43→21:23)
[2017-04-07] MEDS: THIAMINE 100 MG TAB GTB SCH (08:43)
[2017-04-07] MEDS: MULTIVITAMINS 30 ML CUP GTB SCH (08:43)
[2017-04-07] MEDS: ASCORBIC ACID 250 MG TAB GTB SCH ×3 (08:43→21:23)
[2017-04-07] MEDS: POLYETHYLENE GLYCOL 17 GM PACKET NGT SCH (08:44)
[2017-04-07] MEDS: COLLAGENASE 30 GM TUBE TOP SCH (08:45)
[2017-04-07] MEDS: BALSAM PERU/CASTOR OIL 60 GM TUBE TOP SCH (08:45)
[2017-04-07 09:08] LABS: ANISOCYTOSIS 1+ (0-0); BASOPHILS % (M) 2 % (0-2); BURR CELLS 1+ (0-0); EOSINOPHILS % (M) 1 % (0-7); ERYTHROBLAST% (NRBC) (M) 1 % (0-0); GIANT THROMBO% (M) 5 % (0-0); MONOCYTES % (M) 2 % (0-11); MYELOCYTES % (M) 1 % (0-0); PLATELET ESTIMATE SIG DECREASED; POIKILOCYTOSIS 3+ (0-0); POLYCHROMASIA 2+ (0-0)
--- NOTE | 2017-04-07 10:29 | PN ---
Date/Time of Note Date/Time of Note DATE: 04/07/17 TIME: 10:25 Assessment/Plan VTE Prophylaxis VTE Prophylaxis Intervention: SCD's Lines/Catheters IV [facility] Type [facility] Central Line Central line still needed: Yes Urinary Cath still in place: Yes Reason Cath still needed: urinary retention Assessment/Plan Chief Complaint/Hosp Course Assessment/Plan: 41-year-old male coming from half-way with: 1. Septic shock-likely secondary to urinary tract infection, as well as pneumonia and sacral ulcer sections. Patient has history of prior multiple UTIs. Wound culture does show positive E. coli, enterococcus, Proteus, and MRSA as well. -Continue pressor support and try to wean off as tolerated, aggressive IV fluid hydration, broad-spectrum antibiotics meropenem and amikacin for now -Follow-up infectious disease consult recommendations. 2. Bilateral pneumonia and pleural effusion. -continue broad-spectrum antibiotics, follow-up final culture results. 3. Clinic staged sacral ulcers for which at least 1 is stage IV -Medicines per wound care consult and patient, continue broad-spectrum antibiotic, follow up final culture results 4. History of seizure disorder: -Continue Keppra to 1000 IV twice daily. -We will consider neurology consult if seizures reoccur or persist 6. Previous cerebrovascular accident -monitor for now 7. Chronic vegetative state -trach and PEG 8. Chronic respiratory failure, vent dependent -positive pleural effusions found on chest x-ray - continue oxygen supplementation via mechanical ventilation, follow pulmonary recommendations 9. Status post PEG tube placement -continue PEG tube feeds 10. anemia of chronic disease -monitor H and H. 11. Hypernatremia: Resolved today 147-> 151->155 -> 145 -> 140 -Will lower free water amount, for now continue D5W IV fluids, monitor BMP in a.m. 12. possible Diabetes insipidus: Patient with increased urine output. -Off desmopressin now, monitor 13. low phosphorus: We will replete low phosphorus today 14. Thrombocytopenia: Lovenox has been held, no signs of bleeding. - > -> -> 17. DIC panel from a few days ago does appear abnormal. No signs of any bleeding, but again platelets still low despite 1 unit platelet given yesterday. -Continue to hold all anticoagulants -We will get hematology oncology consult Critical care time spent on patient care today: 45 minutes Problems: Subjective 24 Hr Interval Summary Free Text/Dictation Patient had 1 unit platelet transfusion yesterday, no signs of any present bleeding. Patient had tachyarrhythmia last night, pressors switched from Levophed to Ankush-Synephrine. Also received IV fluids. No signs of any fevers. Patient now DNR. Exam/Review of Systems Vital Signs Vitals Vital Signs Date Time Temp Pulse Resp B/P Pulse Ox O2 Delivery O2 Flow Rate FiO2 04/07/17 09:30 110 25 102/56 96 04/07/17 09:00 Mechanical Ventilator 04/07/17 08:00 99.0 04/07/17 07:30 40 Intake and Output 04/06/17 04/06/17 04/07/17 15:00 23:00 07:00 Intake Total 1546.24 ml 1850.93 ml 3991.24 ml Output Total 1600 ml 1200 ml 690 ml Balance -53.76 ml 650.93 ml 3301.24 ml Exam Constitutional: non-verbal Head: normocephalic ENMT: other (+ tracheostomy) Neck: supple Respiratory: some congested cough, crackles/rales, diminished breath sounds, other (Bilateral Coarse BS+) Cardiovascular: nl pulses, regular rate and rhythm Gastrointestinal: non-tender, other (G tube in place ), soft Results Result Diagram: 04/07/17 0530 04/07/17 0530 Results 24 hrs Laboratory Tests Test 04/06/17 12:24 04/07/17 05:30 04/07/17 09:18 Platelet Count 22 #*L 17 *L Prothrombin Time 14.8 H Prothrombin Time Ratio 1.2 INR International Normalized Ratio 1.16 Activated Partial Thromboplast Time 37.0 H Thrombin Time 19.3 H Fibrinogen 291.0 # Plasma Fibrin Degradation Products <10 D-Dimer 5577.00 #H D-Dimer Comment White Blood Count 5.9 # Red Blood Count 2.77 L Hemoglobin 8.6 L Hematocrit 26.5 L Mean Corpuscular Volume 95.7 Mean Corpuscular Hemoglobin 31.0 Mean Corpuscular Hemoglobin Concent 32.5 Red Cell Distribution Width 19.9 H Mean Platelet Volume 13.3 H Neutrophils % Segmented Neutrophils % (Manual) 70 Band Neutrophils % (Manual) 18 H Lymphocytes % Lymphocytes % (Manual) 6 L Monocytes % Monocytes % (Manual) 2 Eosinophils % Eosinophils % (Manual) 1 Basophils % Basophils % (Manual) 2 Myelocytes % (Manual) 1 H Nucleated Red Blood Cells % 1 H Neutrophils # (Manual) 4.2 Band Neutrophils # 1.0 H Absolute Lymphocytes (Manual) 0.3 L Lymphocytes # Monocytes # Absolute Monocytes (Manual) 0.1 L Eosinophils # Basophils # Basophils # (Manual) 0.1 H Myelocytes # 0.0 Nucleated Red Blood Cells # Thrombocytosis 5 H Platelet Estimate SIG DECREASED Polychromasia 2+ Poikilocytosis 3+ Anisocytosis 1+ Macrocytosis 1+ Sodium Level 140 Potassium Level 3.9 Chloride Level 110 Carbon Dioxide Level 20 L Anion Gap 14 Blood Urea Nitrogen 17 Creatinine 0.79 Glucose Level 62 #L Calcium Level 9.5 Phosphorus Level 2.1 #L Magnesium Level 1.8 Lab Scanned Report REFERENCE LAB Medications Medications Current Medications Lansoprazole (Prevacid) 30 mg DAILY@06 GTB Last administered on 04/07/17 05:55 ; Admin Dose 30 MG; Start 04/02/17 at 06:00 Acetaminophen (Tylenol Liquid) 480 mg Q6H PRN PEG MILD PAIN LEVEL 1-3; Start at 20:30 Eye Lubricant (Artificial Tears Oph) 1 drop BID BOTH EYES Last administered on 04/07/17 08:42; Admin Dose 1 DROP; Start 04/01/17 at 21:00 Ferrous Sulfate (Feosol Liquid Cup) 300 mg BID GTB Last administered on 08:43; Admin Dose 300 MG; Start 04/02/17 at 09:00 Folic Acid (Folic Acid) 1 mg DAILY PEG Last administered on 04/07/17 08:43; Admin Dose 1 MG; Start 04/02/17 at 09:00 Lactobacillus Acidophilus/ Rhamnosus (Culturelle) 1 cap DAILY GTB Last administered on 04/07/17 08:43; Admin Dose 1 CAP; Start 04/02/17 at 09:00 Thiamine HCl (Vitamin B1) 100 mg DAILY GTB Last administered on 04/07/17 08:43 ; Admin Dose 100 MG; Start 04/02/17 at 09:00 Ascorbic Acid (Vitamin C) 250 mg TID GTB Last administered on 04/07/17 08:43; Admin Dose 250 MG; Start 04/01/17 at 21:00 Multivitamins (Multivitamin) 30 ml DAILY GTB Last administered on 04/07/17 08: 43; Admin Dose 30 ML; Start 04/02/17 at 09:00 Polyethylene Glycol 8.5 gm 8.5 gm DAILY NGT Last administered on 04/07/17 08: 44; Admin Dose 8.5 GM; Start 04/02/17 at 09:00 Norepinephrine 16 mg/Dextrose 500 ml @ 1.87 mls/hr TITRATE IV Last administered on 04/05/17 12:58; Admin Dose 5.62 MLS/HR; Start 04/02/17 at 03:00 Meropenem/Sodium Chloride 50 ml @ 200 mls/hr Q8 IVPB Last administered on 04/07 05:55; Admin Dose 200 MLS/HR; Start 04/02/17 at 14:00 Dextrose 1,000 ml @ 125 mls/hr Q8H IV Last administered on 04/07/17 09:04; Admin Dose 125 MLS/HR; Start 04/04/17 at 10:00 Levetiracetam (Keppra 1,000mg/ 100ml (Pmx)) 100 ml @ 400 mls/hr Q12 IVPB Last administered on 04/07/17 08:42; Admin Dose 400 MLS/HR; Start 04/04/17 at 22:30 Amikacin Sulfate (Amikacin Iv Per Pharmacy) AMIKACIN PER PHARMACY NOTE XX ; Start 04/04/17 at 11:30 Collagenase (Santyl) 1 applic DAILY TOP Last administered on 04/07/17 08:45; Admin Dose 1 APPLIC; Start 04/05/17 at 09:00 Collagenase 1 applic 1 applic PRN PRN TOP PRN; Start 04/05/17 at 00:30 Amikacin Sulfate 1000 mg/Sodium Chloride 254 ml @ 254 mls/hr Q36H IVPB Last administered on 04/06/17 01:49; Admin Dose 254 MLS/HR; Start 04/06/17 at 02:00 Daptomycin/Sodium Chloride (Cubicin/NS) 100 ml @ 200 mls/hr Q24H IVPB Last administered on 04/06/17 14:45; Admin Dose 200 MLS/HR; Start 04/05/17 at 15:00 Miscellaneous Information AMIKACIN TROUGH @ 1,300 ON... ONCE ONCE XX ; Start 04/07/17 at 13:00; Stop 04/07/17 at 13:01 Phenylephrine HCl 40 mg/Dextrose 500 ml @ 75 mls/hr TITRATE IV ; Start at 10:00 Potassium Phosphate/Sodium Chloride (K Phos (Meq)/NS) 254.5455 ml @ 63.636 m... ONCE ONCE IVPB ; Start 04/07/17 at 10:30; Stop 04/07/17 at 14:29 BECKI ESCOBAR Apr 07, 2017 10:29
[2017-04-07] MEDS ORDERED: POTASSIUM PHOSPHATE 20 MEQ in SOD CHLORIDE 0.9% 250 ML IVPB ONE (10:30)
--- NOTE | 2017-04-07 11:05 | CONS ---
Date/Time of Note Date/Time of Note DATE: 04/07/17 TIME: 11:01 Assessment/Plan Assessment/Plan Additional Assessment/Plan Ventilator setting; AC of 12, tidal volume 500, PEEP of 5, 40% FiO2. Patient currently on phenylephrine drip at 150 mics per minute. Assessment and recommendations; 1. Patient with a history of chronic respiratory failure and severe anoxic brain injury admitted for UTI and sepsis, also has sacral decubitus wound growing multiple organisms. Patient currently on appropriate antibiotic regimen. 2. Hypotension requiring pressor support. 3. Likely underlying cardiomyopathy. 4. Stable seizure disorder. 5. Anemia and severe thrombocytopenia. 6. Hypernatremia and hyperchloremia with interval resolution. Continue current supportive care. Prognosis remains poor. Consultation Date/Type/Reason Admit Date/Time Apr 02, 2017 at 02:10 Type of Consultation: Pulmonary/critical care 24 HR Interval Summary Free Text/Dictation Patient's condition remains critical. Remains completely unresponsive due to anoxic brain injury. General exam; young male, on ventilator via tracheostomy, unresponsive, currently in no distress. Exam/Review of Systems Vital Signs Vitals Vital Signs Date Time Temp Pulse Resp B/P Pulse Ox O2 Delivery O2 Flow Rate FiO2 04/07/17 09:30 110 25 102/56 96 04/07/17 09:00 Mechanical Ventilator 04/07/17 08:00 99.0 04/07/17 08:00 40 Intake and Output 04/06/17 04/06/17 04/07/17 15:00 23:00 07:00 Intake Total 1546.24 ml 1850.93 ml 3991.24 ml Output Total 1600 ml 1200 ml 690 ml Balance -53.76 ml 650.93 ml 3301.24 ml Exam HEENT exam; supple neck, positive JVD. No lymphadenopathy. Midline trachea. No thyromegaly. Tracheostomy in place. Patient does have multiple scars involving the left temporoparietal area. Chest exam; diminished but clear breath sounds. S1-S2 audible, no murmurs. Regular rhythm. Abdomen exam; soft, G-tube in place. Bowel sounds audible. No organomegaly. Extremity exam; no peripheral edema. Back examination; dressing applied over sacrum. EXHIBITION SPECIALIST exam; patient remains completely unresponsive. Results Result Diagram: 04/07/17 0530 04/07/17 0530 Results 24 hrs Laboratory Tests Test 04/06/17 12:24 04/07/17 05:30 04/07/17 09:18 Platelet Count 22 #*L 17 *L Prothrombin Time 14.8 H Prothrombin Time Ratio 1.2 INR International Normalized Ratio 1.16 Activated Partial Thromboplast Time 37.0 H Thrombin Time 19.3 H Fibrinogen 291.0 # Plasma Fibrin Degradation Products <10 D-Dimer 5577.00 #H D-Dimer Comment White Blood Count 5.9 # Red Blood Count 2.77 L Hemoglobin 8.6 L Hematocrit 26.5 L Mean Corpuscular Volume 95.7 Mean Corpuscular Hemoglobin 31.0 Mean Corpuscular Hemoglobin Concent 32.5 Red Cell Distribution Width 19.9 H Mean Platelet Volume 13.3 H Neutrophils % Segmented Neutrophils % (Manual) 70 Band Neutrophils % (Manual) 18 H Lymphocytes % Lymphocytes % (Manual) 6 L Monocytes % Monocytes % (Manual) 2 Eosinophils % Eosinophils % (Manual) 1 Basophils % Basophils % (Manual) 2 Myelocytes % (Manual) 1 H Nucleated Red Blood Cells % 1 H Neutrophils # (Manual) 4.2 Band Neutrophils # 1.0 H Absolute Lymphocytes (Manual) 0.3 L Lymphocytes # Monocytes # Absolute Monocytes (Manual) 0.1 L Eosinophils # Basophils # Basophils # (Manual) 0.1 H Myelocytes # 0.0 Nucleated Red Blood Cells # Thrombocytosis 5 H Platelet Estimate SIG DECREASED Polychromasia 2+ Poikilocytosis 3+ Anisocytosis 1+ Macrocytosis 1+ Sodium Level 140 Potassium Level 3.9 Chloride Level 110 Carbon Dioxide Level 20 L Anion Gap 14 Blood Urea Nitrogen 17 Creatinine 0.79 Glucose Level 62 #L Calcium Level 9.5 Phosphorus Level 2.1 #L Magnesium Level 1.8 Lab Scanned Report REFERENCE LAB Medications Medications Current Medications Lansoprazole (Prevacid) 30 mg DAILY@06 GTB Last administered on 04/07/17 05:55 ; Admin Dose 30 MG; Start 04/02/17 at 06:00 Acetaminophen (Tylenol Liquid) 480 mg Q6H PRN PEG MILD PAIN LEVEL 1-3; Start at 20:30 Eye Lubricant (Artificial Tears Oph) 1 drop BID BOTH EYES Last administered on 04/07/17 08:42; Admin Dose 1 DROP; Start 04/01/17 at 21:00 Ferrous Sulfate (Feosol Liquid Cup) 300 mg BID GTB Last administered on 08:43; Admin Dose 300 MG; Start 04/02/17 at 09:00 Folic Acid (Folic Acid) 1 mg DAILY PEG Last administered on 04/07/17 08:43; Admin Dose 1 MG; Start 04/02/17 at 09:00 Lactobacillus Acidophilus/ Rhamnosus (Culturelle) 1 cap DAILY GTB Last administered on 04/07/17 08:43; Admin Dose 1 CAP; Start 04/02/17 at 09:00 Thiamine HCl (Vitamin B1) 100 mg DAILY GTB Last administered on 04/07/17 08:43 ; Admin Dose 100 MG; Start 04/02/17 at 09:00 Ascorbic Acid (Vitamin C) 250 mg TID GTB Last administered on 04/07/17 08:43; Admin Dose 250 MG; Start 04/01/17 at 21:00 Multivitamins (Multivitamin) 30 ml DAILY GTB Last administered on 04/07/17 08: 43; Admin Dose 30 ML; Start 04/02/17 at 09:00 Polyethylene Glycol 8.5 gm 8.5 gm DAILY NGT Last administered on 04/07/17 08: 44; Admin Dose 8.5 GM; Start 04/02/17 at 09:00 Norepinephrine 16 mg/Dextrose 500 ml @ 1.87 mls/hr TITRATE IV Last administered on 04/05/17 12:58; Admin Dose 5.62 MLS/HR; Start 04/02/17 at 03:00 Meropenem/Sodium Chloride 50 ml @ 200 mls/hr Q8 IVPB Last administered on 04/07 05:55; Admin Dose 200 MLS/HR; Start 04/02/17 at 14:00 Dextrose 1,000 ml @ 125 mls/hr Q8H IV Last administered on 04/07/17 09:04; Admin Dose 125 MLS/HR; Start 04/04/17 at 10:00 Levetiracetam (Keppra 1,000mg/ 100ml (Pmx)) 100 ml @ 400 mls/hr Q12 IVPB Last administered on 04/07/17 08:42; Admin Dose 400 MLS/HR; Start 04/04/17 at 22:30 Amikacin Sulfate (Amikacin Iv Per Pharmacy) AMIKACIN PER PHARMACY NOTE XX ; Start 04/04/17 at 11:30 Collagenase (Santyl) 1 applic DAILY TOP Last administered on 04/07/17 08:45; Admin Dose 1 APPLIC; Start 04/05/17 at 09:00 Collagenase 1 applic 1 applic PRN PRN TOP PRN; Start 04/05/17 at 00:30 Amikacin Sulfate 1000 mg/Sodium Chloride 254 ml @ 254 mls/hr Q36H IVPB Last administered on 04/06/17 01:49; Admin Dose 254 MLS/HR; Start 04/06/17 at 02:00 Daptomycin/Sodium Chloride (Cubicin/NS) 100 ml @ 200 mls/hr Q24H IVPB Last administered on 04/06/17 14:45; Admin Dose 200 MLS/HR; Start 04/05/17 at 15:00 Miscellaneous Information AMIKACIN TROUGH @ 1,300 ON... ONCE ONCE XX ; Start 04/07/17 at 13:00; Stop 04/07/17 at 13:01 Phenylephrine HCl 40 mg/Dextrose 500 ml @ 75 mls/hr TITRATE IV ; Start at 10:00 Potassium Phosphate/Sodium Chloride (K Phos (Meq)/NS) 254.5455 ml @ 63.636 m... ONCE ONCE IVPB ; Start 04/07/17 at 10:30; Stop 04/07/17 at 14:29 JUDI VAZQUEZ Apr 07, 2017 11:05
[2017-04-07 11:18] LABS: PLATELET COUNT 23 10^3/UL (140-415)
[2017-04-07] MEDS: PHENYLephrine 40 MG in DEXTROSE 5% 496 ML IV SCH ×2 (11:50→22:01)
[2017-04-07 12:03] LABS: INR 1.29; PROTIME 16.2 Sec (12.2-14.2); PT RATIO 1.3
[2017-04-07 12:04] LABS: PARTIAL THROMBOPLASTIN TIME 41.2 Sec (25.0-35.0); THROMBIN TIME 18.1 SEC (13.8-19.1)
[2017-04-07 12:04] LABS: AADO2 Arterial 113.6 mmHg (7.0-24.0); Allen Test ACCEPTAB; Arterial COHb 0 % (0.0-3.0); Arterial HCO3 17.1 mmol/L (22.0-26.0); Arterial MetHb 0.3 % (0.0-1.5); Arterial Total Hemglobin 9.4 g/dl (12.0-18.0); MODE VENT - AC
--- NOTE | 2017-04-07 13:18 | CONS ---
Date/Time of Note Date/Time of Note DATE: 04/07/17 TIME: 13:10 Assessment/Plan Assessment/Plan Additional Assessment/Plan Pt remains unresponsive, which is apparently the baseline for this unfortunate man. Thrombocytopenia is likely due to sepsis but there is no bleeding. I would transfuse platelets if he has bleeding or if surgical procedures are needed. Otherwise, I would suggest prophyllactic transfusion for plt <10 K. We will follow with you. Consultation Date/Type/Reason Admit Date/Time Apr 02, 2017 at 02:10 Date of Consultation: Apr 07, 2017 Type of Consultation: hematology Reason for Consultation thrombocytopenia Referring Provider: BECKI ESCOBAR Hx of Present Illness History from chart since pt cannot communicate. Pt is unfortunate man with strokes and anoxic brain damage who has also been afflicted with seizures, pneumonia, sacral decubital ulcers, tracheostomy, and now admitted for sepsis again. No active bleeding but platelets are in the 20's, which is down from ~70 when he was admitted to the hospital. He also has a PEG for feeding and a history of nephrolithiasis. Past Medical History Medical History: peptic ulcer disease, other Past Surgical History Past Surgical Hx: other (PEG/Trach ) Social History Alcohol Use: none Smoking Status: Unknown if ever smoked Drug Use: none Exam/Review of Systems Vital Signs Vitals Vital Signs Date Time Temp Pulse Resp B/P Pulse Ox O2 Delivery O2 Flow Rate FiO2 04/07/17 11:35 118 30 96 30 04/07/17 09:30 102/56 04/07/17 09:00 Mechanical Ventilator 04/07/17 08:00 99.0 Intake and Output 04/06/17 04/06/17 04/07/17 15:00 23:00 07:00 Intake Total 1546.24 ml 1850.93 ml 3991.24 ml Output Total 1600 ml 1200 ml 690 ml Balance -53.76 ml 650.93 ml 3301.24 ml Exam Constitutional: non-verbal, other (vegetative state) Head: atraumatic Eyes: nl sclera ENMT: nl lips & teeth Neck: other (tracheostomy) Respiratory: clear to auscultation Cardiovascular: regular rate and rhythm Gastrointestinal: nl liver, spleen, soft Results Result Diagram: 04/07/17 1033 04/07/17 0530 Results 24 hrs Laboratory Tests Test 04/07/17 05:30 04/07/17 09:18 04/07/17 10:33 04/07/17 11:41 White Blood Count 5.9 # Red Blood Count 2.77 L Hemoglobin 8.6 L Hematocrit 26.5 L Mean Corpuscular Volume 95.7 Mean Corpuscular Hemoglobin 31.0 Mean Corpuscular Hemoglobin Concent 32.5 Red Cell Distribution Width 19.9 H Platelet Count 17 *L 23 *L Mean Platelet Volume 13.3 H Neutrophils % Segmented Neutrophils % (Manual) 70 Band Neutrophils % (Manual) 18 H Lymphocytes % Lymphocytes % (Manual) 6 L Monocytes % Monocytes % (Manual) 2 Eosinophils % Eosinophils % (Manual) 1 Basophils % Basophils % (Manual) 2 Myelocytes % (Manual) 1 H Nucleated Red Blood Cells % 1 H Neutrophils # (Manual) 4.2 Band Neutrophils # 1.0 H Absolute Lymphocytes (Manual) 0.3 L Lymphocytes # Monocytes # Absolute Monocytes (Manual) 0.1 L Eosinophils # Basophils # Basophils # (Manual) 0.1 H Myelocytes # 0.0 Nucleated Red Blood Cells # Thrombocytosis 5 H Platelet Estimate SIG DECREASED Polychromasia 2+ Poikilocytosis 3+ Anisocytosis 1+ Macrocytosis 1+ Sodium Level 140 Potassium Level 3.9 Chloride Level 110 Carbon Dioxide Level 20 L Anion Gap 14 Blood Urea Nitrogen 17 Creatinine 0.79 Glucose Level 62 #L Calcium Level 9.5 Phosphorus Level 2.1 #L Magnesium Level 1.8 Lab Scanned Report REFERENCE LAB Prothrombin Time 16.2 H Prothrombin Time Ratio 1.3 INR International Normalized Ratio 1.29 Activated Partial Thromboplast Time 41.2 H Thrombin Time Pending Fibrinogen Pending Plasma Fibrin Degradation Products Pending D-Dimer Pending Blood Gas Specimen Source Blood arterial Arterial Blood Date Drawn 04/07/2017 11:50:05 AM Arterial Blood pH (Temp corrected) 7.438 Arterial Blood pCO2 (Temp correct) 25.8 L Arterial Blood pO2 (Temp corrected) 70.0 L Arterial Blood HCO3 17.1 L Arterial Blood Base Excess -6.0 L Arterial Blood Oxygen Saturation 94.3 L Geo Test ACCEPTAB Arterial Blood Gas Puncture Site Right Radial Arterial Blood Carboxyhemoglobin 0 Arterial Blood Methemoglobin 0.3 Blood Gas A-a O2 Differential 113.6 H Oxyhemoglobin Percent 94.0 Total Hemoglobin 9.4 L Blood Gas Temperature 37.0 Blood Gas Respiration Rate 12.0 Blood Gas Actual Respiration Rate 27 Blood Gas Modality VENT - AC FiO2 30.0 Blood Gas Tidal Volume 500.0 Blood Gas Low PEEP Setting 5.0 Blood Gas Notified Whom SN Blood Gas Notified Time 04/07/2017 12:02:46 PM Medications Medications Current Medications Lansoprazole (Prevacid) 30 mg DAILY@06 GTB Last administered on 04/07/17 05:55 ; Admin Dose 30 MG; Start 04/02/17 at 06:00 Acetaminophen (Tylenol Liquid) 480 mg Q6H PRN PEG MILD PAIN LEVEL 1-3; Start at 20:30 Eye Lubricant (Artificial Tears Oph) 1 drop BID BOTH EYES Last administered on 04/07/17 08:42; Admin Dose 1 DROP; Start 04/01/17 at 21:00 Ferrous Sulfate (Feosol Liquid Cup) 300 mg BID GTB Last administered on 08:43; Admin Dose 300 MG; Start 04/02/17 at 09:00 Folic Acid (Folic Acid) 1 mg DAILY PEG Last administered on 04/07/17 08:43; Admin Dose 1 MG; Start 04/02/17 at 09:00 Lactobacillus Acidophilus/ Rhamnosus (Culturelle) 1 cap DAILY GTB Last administered on 04/07/17 08:43; Admin Dose 1 CAP; Start 04/02/17 at 09:00 Thiamine HCl (Vitamin B1) 100 mg DAILY GTB Last administered on 04/07/17 08:43 ; Admin Dose 100 MG; Start 04/02/17 at 09:00 Ascorbic Acid (Vitamin C) 250 mg TID GTB Last administered on 04/07/17 08:43; Admin Dose 250 MG; Start 04/01/17 at 21:00 Multivitamins (Multivitamin) 30 ml DAILY GTB Last administered on 04/07/17 08: 43; Admin Dose 30 ML; Start 04/02/17 at 09:00 Polyethylene Glycol 8.5 gm 8.5 gm DAILY NGT Last administered on 04/07/17 08: 44; Admin Dose 8.5 GM; Start 04/02/17 at 09:00 Norepinephrine 16 mg/Dextrose 500 ml @ 1.87 mls/hr TITRATE IV Last administered on 04/05/17 12:58; Admin Dose 5.62 MLS/HR; Start 04/02/17 at 03:00 Meropenem/Sodium Chloride 50 ml @ 200 mls/hr Q8 IVPB Last administered on 04/07 05:55; Admin Dose 200 MLS/HR; Start 04/02/17 at 14:00 Dextrose 1,000 ml @ 125 mls/hr Q8H IV Last administered on 04/07/17 09:04; Admin Dose 125 MLS/HR; Start 04/04/17 at 10:00 Levetiracetam (Keppra 1,000mg/ 100ml (Pmx)) 100 ml @ 400 mls/hr Q12 IVPB Last administered on 04/07/17 08:42; Admin Dose 400 MLS/HR; Start 04/04/17 at 22:30 Amikacin Sulfate (Amikacin Iv Per Pharmacy) AMIKACIN PER PHARMACY NOTE XX ; Start 04/04/17 at 11:30 Collagenase (Santyl) 1 applic DAILY TOP Last administered on 04/07/17 08:45; Admin Dose 1 APPLIC; Start 04/05/17 at 09:00 Collagenase 1 applic 1 applic PRN PRN TOP PRN; Start 04/05/17 at 00:30 Amikacin Sulfate 1000 mg/Sodium Chloride 254 ml @ 254 mls/hr Q36H IVPB Last administered on 04/06/17 01:49; Admin Dose 254 MLS/HR; Start 04/06/17 at 02:00 Daptomycin 410 mg/ Sodium Chloride 100 ml @ 200 mls/hr Q24H IVPB Last administered on 04/06/17 14:45; Admin Dose 200 MLS/HR; Start 04/05/17 at 15:00 Phenylephrine HCl 40 mg/Dextrose 500 ml @ 75 mls/hr TITRATE IV Last administered on 04/07/17 11:50; Admin Dose 90 MLS/HR; Start 04/07/17 at 10:00 Potassium Phosphate/Sodium Chloride (K Phos (Meq)/NS) 254.5455 ml @ 63.636 m... ONCE ONCE IVPB Last administered on 04/07/17 11:30; Admin Dose 63.636 MLS/HR; Start 04/07/17 at 10:30; Stop 04/07/17 at 14:29 ARUN KLEIN MD Apr 07, 2017 13:18
--- NOTE | 2017-04-07 13:50 | PN ---
DATE: 04/07/2017 SUBJECTIVE DATA: No acute changes. The patient was started on Ankush-Synephrine drip, status post status post Levophed secondary to tachycardia. OBJECTIVE DATA: He is noncommunicative, lying comfortably in bed and in no distress. Temperature 99, pulse 109, respirations 24, blood pressure 93/57, saturation 97 on vent. LABORATORY AND DIAGNOSTIC DATA: WBC 5.9. H and H 8.6 and 26.5, platelets 17, neutrophils 70, BUN 17, creatinine 0.79. MICROBIOLOGY: Urine culture growing E. coli and Proteus mirabilis. Blood culture grew E coli. Nares swab negative for MRSA. Endotracheal aspirate growing Providencia stuartii and Proteus mirabilis. Wound culture grew MRSA, VRE, Proteus mirabilis, and E coli. INDWELLINGS: The patient has trach, PEG, right femoral triple- lumen catheter and German catheter. ANTIMICROBIALS: Amikacin, daptomycin and meropenem. PHYSICAL EXAMINATION: GENERAL: Chronically ill-appearing, middle-aged man, who is noncommunicative, comfortable on vent. HEENT: Head atraumatic, normocephalic. Sclerae anicteric. Buccal mucosa dry. NECK: Supple. Tracheostomy present. CHEST: Chest rise symmetrical. Breath sounds with scattered crackles. HEART: S1, S2. Tachycardic, regular. ABDOMEN: Distended, soft. Bowel sounds hypoactive. EXTREMITIES: Contractures with multiple skin air pressure sores. SKIN: With unstageable decubitus. ASSESSMENT: 1. Severe sepsis with shock. 2. E coli bacteremia. 3. Unstageable chronic wounds infected, with wound culture growing multidrug resistant organisms. 4. Multidrug resistant urinary tract infection. 5. Anemia. 6. Progressive thrombocytopenia. 7. Vegetative state and seizure disorder. PLAN: The patient remains hemodynamically unstable. He is on appropriate antimicrobials. There is no evidence of pneumonia per Pulmonary note and chest x-ray did not show any infiltrates. We will keep him on current regimen. Await for repeat blood cultures. The patient is DNR status. Dictated By: Ree Marie NP /vincent/julio /Document#: [id number]
[2017-04-07 14:00] LABS: FIBRIN SPLIT PRODUCT <10 ug/ml (<10)
[2017-04-07 14:21] LABS: D-DIMER 7569.68 ng/ml (<460)
[2017-04-07] MEDS: AMIKACIN 1,000 MG in SOD CHLORIDE 0.9% 250 ML IVPB SCH (16:06)
[2017-04-07] MEDS: DAPTOMYCIN 410 MG in SOD CHLORIDE 0.9% 100 ML IVPB SCH (17:32)
[2017-04-07] MEDS: DESMOPRESSIN 4 MCG INJ SC SCH (22:50)
[2017-04-08] VITALS (96 sets, daily range): BP systolic 85–118; BP diastolic 45–74; PULSE 64–108; RESP 12–26
[2017-04-08] MEDS: DEXTROSE 5% 1,000 ML IV SCH ×4 (02:45→20:01)
[2017-04-08] MEDS: MEROPENEM 1 GM/50ML(PMX) 50 ML IVPB SCH (06:46)
[2017-04-08] MEDS: LANSOPRAZOLE 30 MG CAP GTB SCH (06:46)
[2017-04-08] MEDS: PHENYLephrine 40 MG in DEXTROSE 5% 496 ML IV SCH (06:50)
[2017-04-08 06:55] LABS: ABNORMAL IP MESSAGE 1; HEMATOCRIT 23.9 % (42.0-52.0); HEMOGLOBIN 7.5 g/dl (14.0-18.0); MEAN CORPUSCULAR HEMOGLOBIN 29.5 pg (29.0-33.0); MEAN CORPUSCULAR HGB CONC 31.4 g/dl (32.0-37.0); MEAN CORPUSCULAR VOLUME 94.1 fl (82.0-101.0); POSITIVE DIFF @See below; RED BLOOD COUNT 2.54 10^6/ul (4.70-6.10); RED CELL DISTRIBUTION WIDTH 20.3 % (11.5-14.5); WHITE BLOOD COUNT 10.7 10^3/ul (4.8-10.8)
[2017-04-08 07:02] LABS: PLATELET COUNT 20 10^3/UL (140-415)
[2017-04-08 07:39] LABS: CALCIUM 9.5 mg/dl (8.4-10.2); CREATININE 0.83 mg/dl (0.61-1.24); POTASSIUM 3.3 mmol/L (3.5-5.1)
[2017-04-08 07:48] LABS: MAGNESIUM 1.9 mg/dl (1.7-2.5); PHOSPHORUS 3.3 mg/dl (2.5-4.9)
[2017-04-08] MEDS: MULTIVITAMINS 30 ML CUP GTB SCH (08:43)
[2017-04-08] MEDS: FOLIC ACID 1 MG TAB PEG SCH (08:43)
[2017-04-08] MEDS: FERROUS SULFATE 60 MG/ML 5ML CUP GTB SCH ×2 (08:43→21:00)
[2017-04-08] MEDS: ASCORBIC ACID 250 MG TAB GTB SCH ×3 (08:43→21:00)
[2017-04-08] MEDS: THIAMINE 100 MG TAB GTB SCH (08:43)
[2017-04-08] MEDS: LACTOBACILLUS RHAMNOSUS CAP GTB SCH (08:44)
[2017-04-08] MEDS: POLYETHYLENE GLYCOL 17 GM PACKET NGT SCH (08:44)
[2017-04-08] MEDS: ARTIFICIAL TEARS 15 ML OPH BOTH EYES SCH ×2 (08:44→21:00)
[2017-04-08] MEDS: DESMOPRESSIN 4 MCG INJ SC SCH ×3 (09:04→21:00)
[2017-04-08] MEDS: COLLAGENASE 30 GM TUBE TOP SCH (09:05)
[2017-04-08] MEDS: LEVETIRACETAM 1000 MG (PMX) 100 ML IVPB SCH ×2 (09:05→21:00)
[2017-04-08] MEDS: BALSAM PERU/CASTOR OIL 60 GM TUBE TOP SCH (09:05)
--- NOTE | 2017-04-08 09:54 | PN ---
DATE: 04/08/2017 SUBJECTIVE DATA: The patient remains unchanged. Unresponsive. There has been some possible bloody, emesis as well as other bloody secretions. No other gross bleeding has been noted. OBJECTIVE DATA: GENERAL: Patient is a well-developed, unresponsive male. VITAL SIGNS: Temperature 97.3 axillary, pulse 78 per minute and regular, respirations 18, blood pressure is 108/66, pulse oximetry 98 percent with an FiO2 of 30. SKIN: Scattered ecchymoses. No petechiae or rashes. There is pallor. HEENT: Normocephalic. No evidence of trauma. The pupils are equal, round, react to light and accommodation. Sclerae are icteric. Conjunctivae and oral mucosa are pale. NECK: Supple. No jugular distention or thyroid enlargement. CHEST: Chest is clear to auscultation, percussion. No rhonchi, wheezes, rales, or rubs. NODES: No palpable lymphadenopathy in any lymph node bearing area. CHEST: Scattered rhonchi, which do not clear. HEART: Regular sinus rhythm. No S3, S4, or murmurs. ABDOMEN: No masses or ascites. EXTREMITIES: No clubbing, edema, or cyanosis. No palpable cords or Homans sign. LABORATORY STUDIES: White count 10,700, with an absolute neutrophil count of 8200, hemoglobin 7.5, hematocrit 23.9, platelet count 20,000. Pro time 16.2 seconds, INR 1.29, PTT 41.2 seconds, fibrinogen 257, D-dimer 7,569. ASSESSMENT: 1. Sepsis with Escherichia coli bacteremia. 2. Thrombocytopenia, likely due to sepsis. 3. Vegetative state. DISCUSSION: 1. I would normally not transfuse the patient with platelets at this time, but he has had a decrease in hemoglobin and there has been some bleeding reported. I will give the patient 1 unit of platelet pheresis. 2. The patient's mildly prolonged PTT and prothrombin time are likely related to the patient's underlying liver dysfunction. Most recent bilirubin was 2.6 with a direct real bilirubin 1.7. I doubt that this represents an inhibitor but most likely a deficiency of hepatic dependent coagulation factors and possibly a vitamin K deficiency on the basis of broad-spectrum antibiotic use. PLAN: We will obtain a 50:50 PTT. We will also start the patient on vitamin K replacement. This is most efficient if given via the GI tract. Dictated By: Tylor Anderson MD /vincent/shana /Document#: [id number]
[2017-04-08] MEDS ORDERED: PHYTONADIONE (1 MG/ML PO SYG) GTB SCH ×2 (11:00→18:00)
[2017-04-08] MEDS ORDERED: POTASSIUM PHOSPHATE 40 MEQ in SOD CHLORIDE 0.9% 250 ML IVPB SCH (11:30)
--- NOTE | 2017-04-08 11:34 | CONS ---
Date/Time of Note Date/Time of Note DATE: 04/08/17 TIME: 11:32 Consult Date/Type/Reason Admit Date/Time Apr 02, 2017 at 02:10 Initial Consult Date 04/07/17 Type of Consultation: Pulmonary Ordering Provider: BECKI ESCOBAR Subjective Continues mechanical ventilation, continues vasopressor support. Ongoing seizure activity given ongoing twitching.Concern for possible Objective Vital Signs Date Time Temp Pulse Resp B/P Pulse Ox O2 Delivery O2 Flow Rate FiO2 04/08/17 09:06 78 18 98 30 04/08/17 08:30 108/66 04/08/17 08:00 97.3 Mechanical Ventilator Intake and Output 04/07/17 04/07/17 04/08/17 15:00 23:00 07:00 Intake Total 2322.89 ml 2008.5 ml 1834.5 ml Output Total 1305 ml 3800 ml 3375 ml Balance 1017.89 ml -1791.5 ml -1540.5 ml Exam PHYSICAL EXAMINATION GENERAL: Chronically ill-appearing gentleman on mechanical ventilation. Twitching of eyebrows noted. VITAL SIGNS: see below. HEENT: Pupils equal, round, and reactive to light. Tracheostomy site clean and intact. CARDIAC: S1, S2, 1/6 systolic ejection murmur CHEST: Diminished air entry bilaterally. ABDOMEN: Mildly distended. Bowel sounds present no guarding or rebound EXTREMITIES: No cyanosis, clubbing edema +1 NEUROLOGIC: Generalized weakness Results/Medications Result Diagram: 04/08/17 0540 04/08/17 0540 Results 24 hrs Laboratory Tests Test 04/07/17 11:41 04/07/17 13:00 04/08/17 05:13 04/08/17 05:40 Blood Gas Specimen Source Blood arterial Arterial Blood Date Drawn 04/07/2017 11:50:05 AM Arterial Blood pH (Temp corrected) 7.438 Arterial Blood pCO2 (Temp correct) 25.8 L Arterial Blood pO2 (Temp corrected) 70.0 L Arterial Blood HCO3 17.1 L Arterial Blood Base Excess -6.0 L Arterial Blood Oxygen Saturation 94.3 L Geo Test ACCEPTAB Arterial Blood Gas Puncture Site Right Radial Arterial Blood Carboxyhemoglobin 0 Arterial Blood Methemoglobin 0.3 Blood Gas A-a O2 Differential 113.6 H Oxyhemoglobin Percent 94.0 Total Hemoglobin 9.4 L Blood Gas Temperature 37.0 Blood Gas Respiration Rate 12.0 Blood Gas Actual Respiration Rate 27 Blood Gas Modality VENT - AC FiO2 30.0 Blood Gas Tidal Volume 500.0 Blood Gas Low PEEP Setting 5.0 Blood Gas Notified Whom SN Blood Gas Notified Time 04/07/2017 12:02:46 PM Amikacin Level Trough Lab Scanned Report BLOOD TRANSFUSION White Blood Count 10.7 # Red Blood Count 2.54 L Hemoglobin 7.5 L Hematocrit 23.9 L Mean Corpuscular Volume 94.1 Mean Corpuscular Hemoglobin 29.5 Mean Corpuscular Hemoglobin Concent 31.4 L Red Cell Distribution Width 20.3 H Platelet Count 20 *L Mean Platelet Volume Neutrophils % Lymphocytes % Monocytes % Eosinophils % Basophils % Nucleated Red Blood Cells % 0.0 Neutrophils # (Manual) 8.2 H Lymphocytes # Monocytes # Eosinophils # Basophils # Nucleated Red Blood Cells # Sodium Level 147 H Potassium Level 3.3 L Chloride Level 119 H Carbon Dioxide Level 22 Anion Gap 9 # Blood Urea Nitrogen 16 Creatinine 0.83 Glucose Level 130 # Calcium Level 9.5 Phosphorus Level 3.3 Magnesium Level 1.9 Test 04/08/17 09:51 Lab Scanned Report REFERENCE LAB Medications Current Medications Lansoprazole (Prevacid) 30 mg DAILY@06 GTB Last administered on 04/08/17 06:46 ; Admin Dose 30 MG; Start 04/02/17 at 06:00 Acetaminophen (Tylenol Liquid) 480 mg Q6H PRN PEG MILD PAIN LEVEL 1-3; Start at 20:30 Eye Lubricant (Artificial Tears Oph) 1 drop BID BOTH EYES Last administered on 04/08/17 08:44; Admin Dose 1 DROP; Start 04/01/17 at 21:00 Ferrous Sulfate (Feosol Liquid Cup) 300 mg BID GTB Last administered on 08:43; Admin Dose 300 MG; Start 04/02/17 at 09:00 Folic Acid (Folic Acid) 1 mg DAILY PEG Last administered on 04/08/17 08:43; Admin Dose 1 MG; Start 04/02/17 at 09:00 Lactobacillus Acidophilus/ Rhamnosus (Culturelle) 1 cap DAILY GTB Last administered on 04/08/17 08:44; Admin Dose 1 CAP; Start 04/02/17 at 09:00 Thiamine HCl (Vitamin B1) 100 mg DAILY GTB Last administered on 04/08/17 08:43 ; Admin Dose 100 MG; Start 04/02/17 at 09:00 Ascorbic Acid (Vitamin C) 250 mg TID GTB Last administered on 04/08/17 08:43; Admin Dose 250 MG; Start 04/01/17 at 21:00 Multivitamins (Multivitamin) 30 ml DAILY GTB Last administered on 04/08/17 08: 43; Admin Dose 30 ML; Start 04/02/17 at 09:00 Polyethylene Glycol 8.5 gm 8.5 gm DAILY NGT Last administered on 04/08/17 08:44 ; Admin Dose 8.5 GM; Start 04/02/17 at 09:00 Norepinephrine 16 mg/Dextrose 500 ml @ 1.87 mls/hr TITRATE IV Last administered on 04/05/17 12:58; Admin Dose 5.62 MLS/HR; Start 04/02/17 at 03:00 Dextrose 1,000 ml @ 125 mls/hr Q8H IV Last administered on 04/08/17 02:45; Admin Dose 125 MLS/HR; Start 04/04/17 at 10:00 Levetiracetam (Keppra 1,000mg/ 100ml (Pmx)) 100 ml @ 400 mls/hr Q12 IVPB Last administered on 04/08/17 09:05; Admin Dose 400 MLS/HR; Start 04/04/17 at 22:30 Amikacin Sulfate (Amikacin Iv Per Pharmacy) AMIKACIN PER PHARMACY NOTE XX ; Start 04/04/17 at 11:30 Collagenase (Santyl) 1 applic DAILY TOP Last administered on 04/08/17 09:05; Admin Dose 1 APPLIC; Start 04/05/17 at 09:00 Collagenase 1 applic 1 applic PRN PRN TOP PRN; Start 04/05/17 at 00:30 Daptomycin 410 mg/ Sodium Chloride 100 ml @ 200 mls/hr Q24H IVPB Last administered on 04/07/17 17:32; Admin Dose 200 MLS/HR; Start 04/05/17 at 15:00 Phenylephrine HCl/ Dextrose (Ankush-Syneph/D5W) 500 ml @ 75 mls/hr TITRATE IV Last administered on 04/08/17 06:50; Admin Dose 52.5 MLS/HR; Start 04/07/17 at 10:00 Desmopressin Acetate (Ddavp) 2 mcg BID SC Last administered on 04/08/17 10:55; Admin Dose 2 MCG; Start 04/07/17 at 22:50 Phytonadione 10 mg 10 mg ONCE@18 GTB ; Start 04/08/17 at 18:00; Stop 04/08/17 at 18:01 Potassium Phosphate 40 meq/ Sodium Chloride 259.0909 ml @ 64.773 m... ONCE IVPB Last administered on 04/08/17 11:17; Admin Dose 64.773 MLS/HR; Start at 11:30; Stop 04/08/17 at 15:29 Amikacin Sulfate/ Sodium Chloride (Amikacin/NS) 254 ml @ 254 mls/hr Q48H IVPB ; Start 04/09/17 at 16:00 Assessment/Plan Chief Complaint/Hosp Course Assessment and recommendations; 1. Patient with a history of chronic respiratory failure and severe anoxic brain injury admitted for UTI and sepsis, also has sacral decubitus wound growing multiple organisms. Patient currently on appropriate antibiotic regimen. 2. Hypotension requiring pressor support. 3. Likely underlying cardiomyopathy. 4. Concern for new seizures. 5. Anemia and severe thrombocytopenia. 6. Hypernatremia and hyperchloremia with interval resolution. Plan 1. Continue vasopressors 2. Check cortisol level concern for adrenal insufficiency 3. Monitor platelets 4. Consider PRBCs 5. Replace potassium 6. EEG concern for underlying status epilepticus Overall prognosis very poor. Problems: EARL VIERA [facility], [facility] Apr 08, 2017 11:34
--- NOTE | 2017-04-08 11:37 | PN ---
Date/Time of Note Date/Time of Note DATE: 04/08/17 TIME: 11:35 Assessment/Plan VTE Prophylaxis VTE Prophylaxis Intervention: SCD's Lines/Catheters IV [facility]from [facility] Central Line Central line still needed: Yes Urinary Cath still in place: Yes Reason Cath still needed: urinary retention Assessment/Plan Chief Complaint/Hosp Course Assessment/Plan: 41-year-old male coming from residential with: 1. Septic shock-likely secondary to urinary tract infection, as well as pneumonia and sacral ulcer sections. Patient has history of prior multiple UTIs. Wound culture does show positive E. coli, enterococcus, Proteus, and MRSA as well. -Continue pressor support and try to wean off as tolerated, aggressive IV fluid hydration, broad-spectrum antibiotics meropenem and amikacin for now -Follow-up infectious disease consult recommendations. 2. Bilateral pneumonia and pleural effusion. -continue broad-spectrum antibiotics, follow-up final culture results. 3. Clinic staged sacral ulcers for which at least 1 is stage IV -Medicines per wound care consult and patient, continue broad-spectrum antibiotic, follow up final culture results 4. History of seizure disorder: Appears to have some seizure activity presently with eye twitching per -Continue Keppra to 1000 IV twice daily, and Ativan as needed -EEG ordered and pending, we will consider neurology consult if seizures reoccur or persist 6. Previous cerebrovascular accident -monitor for now 7. Chronic vegetative state -trach and PEG 8. Chronic respiratory failure, vent dependent -positive pleural effusions found on chest x-ray - continue oxygen supplementation via mechanical ventilation, follow pulmonary recommendations 9. Status post PEG tube placement -continue PEG tube feeds 10. anemia of chronic disease -monitor H and H. 11. Hypernatremia: Resolving 147-> 151->155 -> 145 -> 140, but increase in the last 24 hours to 147 -Will increase free water amount today, for now continue D5W IV fluids, monitor BMP in a.m. 12. possible Diabetes insipidus: Patient with increased urine output. -Placed back on desmopressin, continue for now 13. low phosphorus: Pleated, monitor 14. Thrombocytopenia: Lovenox has been held, no signs of bleeding. 31- > 25-> 19 -> 17->20. Appreciate hematology input. -Continue to hold all anticoagulants -Ordered for 1 unit of platelets and vitamin K today. Critical care time spent on patient care today: 45 minutes Problems: Subjective 24 Hr Interval Summary Free Text/Dictation Patient still on low-dose pressor support, had questionable mild upper GI bleeding yesterday, none seen presently. Seen by hematology team yesterday as well. Exam/Review of Systems Vital Signs Vitals Vital Signs Date Time Temp Pulse Resp B/P Pulse Ox O2 Delivery O2 Flow Rate FiO2 04/08/17 11:32 75 18 98 30 04/08/17 08:30 108/66 04/08/17 08:00 97.3 Mechanical Ventilator Intake and Output 04/07/17 04/07/17 04/08/17 15:00 23:00 07:00 Intake Total 2322.89 ml 2008.5 ml 1834.5 ml Output Total 1305 ml 3800 ml 3375 ml Balance 1017.89 ml -1791.5 ml -1540.5 ml Exam Constitutional: non-verbal Head: normocephalic ENMT: other (+ tracheostomy) Neck: supple Respiratory: some congested cough, crackles/rales, diminished breath sounds, other (Bilateral Coarse BS+) Cardiovascular: nl pulses, regular rate and rhythm Gastrointestinal: non-tender, other (G tube in place ), soft Results Result Diagram: 04/08/17 0540 04/08/17 0540 Results 24 hrs Laboratory Tests Test 04/07/17 11:41 04/07/17 13:00 04/08/17 05:13 04/08/17 05:40 Blood Gas Specimen Source Blood arterial Arterial Blood Date Drawn 04/07/2017 11:50:05 AM Arterial Blood pH (Temp corrected) 7.438 Arterial Blood pCO2 (Temp correct) 25.8 L Arterial Blood pO2 (Temp corrected) 70.0 L Arterial Blood HCO3 17.1 L Arterial Blood Base Excess -6.0 L Arterial Blood Oxygen Saturation 94.3 L Geo Test ACCEPTAB Arterial Blood Gas Puncture Site Right Radial Arterial Blood Carboxyhemoglobin 0 Arterial Blood Methemoglobin 0.3 Blood Gas A-a O2 Differential 113.6 H Oxyhemoglobin Percent 94.0 Total Hemoglobin 9.4 L Blood Gas Temperature 37.0 Blood Gas Respiration Rate 12.0 Blood Gas Actual Respiration Rate 27 Blood Gas Modality VENT - AC FiO2 30.0 Blood Gas Tidal Volume 500.0 Blood Gas Low PEEP Setting 5.0 Blood Gas Notified Whom SN Blood Gas Notified Time 04/07/2017 12:02:46 PM Amikacin Level Trough Lab Scanned Report BLOOD TRANSFUSION White Blood Count 10.7 # Red Blood Count 2.54 L Hemoglobin 7.5 L Hematocrit 23.9 L Mean Corpuscular Volume 94.1 Mean Corpuscular Hemoglobin 29.5 Mean Corpuscular Hemoglobin Concent 31.4 L Red Cell Distribution Width 20.3 H Platelet Count 20 *L Mean Platelet Volume Neutrophils % Lymphocytes % Monocytes % Eosinophils % Basophils % Nucleated Red Blood Cells % 0.0 Neutrophils # (Manual) 8.2 H Lymphocytes # Monocytes # Eosinophils # Basophils # Nucleated Red Blood Cells # Sodium Level 147 H Potassium Level 3.3 L Chloride Level 119 H Carbon Dioxide Level 22 Anion Gap 9 # Blood Urea Nitrogen 16 Creatinine 0.83 Glucose Level 130 # Calcium Level 9.5 Phosphorus Level 3.3 Magnesium Level 1.9 Test 04/08/17 09:51 Lab Scanned Report REFERENCE LAB Medications Medications Current Medications Lansoprazole (Prevacid) 30 mg DAILY@06 GTB Last administered on 04/08/17 06:46 ; Admin Dose 30 MG; Start 04/02/17 at 06:00 Acetaminophen (Tylenol Liquid) 480 mg Q6H PRN PEG MILD PAIN LEVEL 1-3; Start at 20:30 Eye Lubricant (Artificial Tears Oph) 1 drop BID BOTH EYES Last administered on 04/08/17 08:44; Admin Dose 1 DROP; Start 04/01/17 at 21:00 Ferrous Sulfate (Feosol Liquid Cup) 300 mg BID GTB Last administered on 08:43; Admin Dose 300 MG; Start 04/02/17 at 09:00 Folic Acid (Folic Acid) 1 mg DAILY PEG Last administered on 04/08/17 08:43; Admin Dose 1 MG; Start 04/02/17 at 09:00 Lactobacillus Acidophilus/ Rhamnosus (Culturelle) 1 cap DAILY GTB Last administered on 04/08/17 08:44; Admin Dose 1 CAP; Start 04/02/17 at 09:00 Thiamine HCl (Vitamin B1) 100 mg DAILY GTB Last administered on 04/08/17 08:43 ; Admin Dose 100 MG; Start 04/02/17 at 09:00 Ascorbic Acid (Vitamin C) 250 mg TID GTB Last administered on 04/08/17 08:43; Admin Dose 250 MG; Start 04/01/17 at 21:00 Multivitamins (Multivitamin) 30 ml DAILY GTB Last administered on 04/08/17 08: 43; Admin Dose 30 ML; Start 04/02/17 at 09:00 Polyethylene Glycol 8.5 gm 8.5 gm DAILY NGT Last administered on 04/08/17 08:44 ; Admin Dose 8.5 GM; Start 04/02/17 at 09:00 Norepinephrine 16 mg/Dextrose 500 ml @ 1.87 mls/hr TITRATE IV Last administered on 04/05/17 12:58; Admin Dose 5.62 MLS/HR; Start 04/02/17 at 03:00 Dextrose 1,000 ml @ 125 mls/hr Q8H IV Last administered on 04/08/17 02:45; Admin Dose 125 MLS/HR; Start 04/04/17 at 10:00 Levetiracetam (Keppra 1,000mg/ 100ml (Pmx)) 100 ml @ 400 mls/hr Q12 IVPB Last administered on 04/08/17 09:05; Admin Dose 400 MLS/HR; Start 04/04/17 at 22:30 Amikacin Sulfate (Amikacin Iv Per Pharmacy) AMIKACIN PER PHARMACY NOTE XX ; Start 04/04/17 at 11:30 Collagenase (Santyl) 1 applic DAILY TOP Last administered on 04/08/17 09:05; Admin Dose 1 APPLIC; Start 04/05/17 at 09:00 Collagenase 1 applic 1 applic PRN PRN TOP PRN; Start 04/05/17 at 00:30 Daptomycin 410 mg/ Sodium Chloride 100 ml @ 200 mls/hr Q24H IVPB Last administered on 04/07/17 17:32; Admin Dose 200 MLS/HR; Start 04/05/17 at 15:00 Phenylephrine HCl/ Dextrose (Ankush-Syneph/D5W) 500 ml @ 75 mls/hr TITRATE IV Last administered on 04/08/17 06:50; Admin Dose 52.5 MLS/HR; Start 04/07/17 at 10:00 Desmopressin Acetate (Ddavp) 2 mcg BID SC Last administered on 04/08/17 10:55; Admin Dose 2 MCG; Start 04/07/17 at 22:50 Phytonadione 10 mg 10 mg ONCE@18 GTB ; Start 04/08/17 at 18:00; Stop 04/08/17 at 18:01 Potassium Phosphate 40 meq/ Sodium Chloride 259.0909 ml @ 64.773 m... ONCE IVPB Last administered on 04/08/17t 11:17; Admin Dose 64.773 MLS/HR; Start at 11:30; Stop 04/08/17 at 15:29 Amikacin Sulfate/ Sodium Chloride (Amikacin/NS) 254 ml @ 254 mls/hr Q48H IVPB ; Start 04/09/17 at 16:00 BECKI ESCOBAR Apr 08, 2017 11:37
[2017-04-08] MEDS ORDERED: LORAZEPAM 2 MG INJ IM PRN (12:00)
[2017-04-08 12:10] LABS: PARTIAL THROMBOPLASTIN TIME 40.3 Sec (25.0-35.0)
--- NOTE | 2017-04-08 12:36 | PN ---
DATE: 04/08/2017 SUBJECTIVE DATA: No events overnight. The patient remains on neosynephrine drip now at 40 mics per minute. He is noncommunicative and nonverbal. Looks comfortable. OBJECTIVE DATA: VITAL SIGNS: Temperature 97.3, pulse 69, respirations 20, blood pressure 107/70, and saturation 100 on 30 FiO2. LABORATORY AND DIAGNOSTIC DATA: WBC 10.7, H and H 7.5 and 23.9, platelets 22, BUN 16, and creatinine 0.83. INDWELLINGS: Trach, PEG, German, and right femoral triple lumen catheter. MICROBIOLOGY: Endotracheal aspirate growing Proteus mirabilis and Providencia stuartii. Blood culture on admission grew E coli. Urine culture growing E coli Proteus mirabilis, wound cultures growing E coli, Proteus mirabilis, VRE and MRSA. ANTIMICROBIAL: The patient is on amikacin and daptomycin. He is also getting meropenem. PHYSICAL EXAMINATION: GENERAL: This is a chronically ill-appearing, middle-aged man, who is in no distress. HEENT: Head atraumatic, normocephalic. Sclerae anicteric. Buccal mucosa dry. NECK: Supple. Tracheostomy present. CHEST: Rise symmetrical. Breath sounds diminished at the bases. HEART: S1, S2. ABDOMEN: Soft, bowel sounds present. EXTREMITIES: Contractured without cyanosis. SKIN: With multiple necrotic wounds. ASSESSMENT: 1. Severe sepsis with shock. 2. Escherichia coli bacteremia, repeat blood cultures negative. 3. Multidrug resistant urinary tract infection. 4. Multiple unstageable wounds. 5. Chronic respiratory failure with sputum culture growing multiple bacteria likely colonized. 6. Bilateral pleural effusion. 7. Thrombocytopenia. 8. Vegetative state. 9. Seizure disorder. PLAN: 1. The patient remains unchanged. 2. He is being followed by multiple consultants. 3. He received platelets transfusion. 4. Also plan to give him vitamin K today. 5. His repeat blood cultures were negative. 6. We will discontinue meropenem. 7. Keep him on daptomycin and amikacin. 8. Monitor renal function. 9. Follow recommendations of consultants. 10. Plan to discontinue femoral line once platelet count normalizes. Dictated By: Ree Marie NP /vincent/fritz /Document#: [id number]
[2017-04-08 14:00] LABS: 50/50 PTT IMMED 37.7 Sec
[2017-04-08] MEDS: DAPTOMYCIN 410 MG in SOD CHLORIDE 0.9% 100 ML IVPB SCH (14:56)
[2017-04-08] MEDS ORDERED: LORAZEPAM 1 MG TAB PO PRN (20:30)
[2017-04-08] MEDS: VALPROATE INJ 500 MG in SOD CHLORIDE 0.9% 50 ML IVPB SCH (21:30)
[2017-04-09] VITALS (64 sets, daily range): BP systolic 85–110; BP diastolic 42–73; PULSE 65–116; RESP 12–27
[2017-04-09] MEDS: VALPROATE INJ 500 MG in SOD CHLORIDE 0.9% 50 ML IVPB SCH ×4 (02:00→17:56)
[2017-04-09] MEDS: DEXTROSE 5% 1,000 ML IV SCH ×3 (04:00→13:53)
[2017-04-09 05:45] LABS: INR 1.16; PROTIME 14.8 Sec (12.2-14.2); PT RATIO 1.2
[2017-04-09 05:46] LABS: PARTIAL THROMBOPLASTIN TIME 36.5 Sec (25.0-35.0)
[2017-04-09 05:57] LABS: ABNORMAL IP MESSAGE 1; HEMATOCRIT 20.5 % (42.0-52.0); MEAN CORPUSCULAR HEMOGLOBIN 30.3 pg (29.0-33.0); MEAN CORPUSCULAR HGB CONC 32.2 g/dl (32.0-37.0); MEAN PLATELET VOLUME 13.4 fl (7.4-10.4); POSITIVE DIFF @See below; RED BLOOD COUNT 2.18 10^6/ul (4.70-6.10); RED CELL DISTRIBUTION WIDTH 19.9 % (11.5-14.5); WHITE BLOOD COUNT 4.6 10^3/ul (4.8-10.8)
[2017-04-09 06:01] LABS: CALCIUM 8.3 mg/dl (8.4-10.2); CREATININE 0.67 mg/dl (0.61-1.24); POTASSIUM 3.3 mmol/L (3.5-5.1)
[2017-04-09 06:21] LABS: HEMOGLOBIN 6.6 g/dl (14.0-18.0)
[2017-04-09 06:22] LABS: PLATELET COUNT 24 10^3/UL (140-415)
[2017-04-09] MEDS: LANSOPRAZOLE 30 MG CAP GTB SCH (06:29)
[2017-04-09 08:11] LABS: AADO2 Arterial 74.9 mmHg (7.0-24.0); Allen Test ACCEPTAB; Arterial COHb 0.2 % (0.0-3.0); Arterial Fraction of Oxyhgb 96.6 % (93.0-99.0); Arterial HCO3 22.9 mmol/L (22.0-26.0); Arterial MetHb 0.1 % (0.0-1.5); Arterial Total Hemglobin 9.2 g/dl (12.0-18.0); MODE VENT - AC
--- NOTE | 2017-04-09 08:51 | RADRPT ---
PROCEDURE: Chest 1 views. CLINICAL INDICATION: Shortness of breath. TECHNIQUE: AP views of the chest was obtained. COMPARISON: April 06, 2017 FINDINGS: The heart is large. Tracheostomy tube is stable and appears in grossly appropriate location. Centra l pulmonary vascular congestion and interstitial prominence is seen in both lungs. Perihilar and lo wer lung infiltrates in both lungs, combined with moderate to large pleural effusions are unchanged. The osseous structures are osteopenic, but appear intact. Old, healed left rib fractures are seen . IMPRESSION: Cardiomegaly . Stable central pulmonary vascular congestion and mild interstitial prominence in both lungs. Stable bilateral perihilar lower lung infiltrates, combined with moderate to large pleural effusions . RPTAT: AA .Tyler Torres MD, Date Time Electronically viewed and signed by .Tyler Torres MD, on 04/09/2017 08:51 .P/
[2017-04-09] MEDS: POLYETHYLENE GLYCOL 17 GM PACKET NGT SCH (09:00)
[2017-04-09] MEDS: DESMOPRESSIN 4 MCG INJ SC SCH ×2 (09:02→21:00)
[2017-04-09] MEDS: LEVETIRACETAM 1000 MG (PMX) 100 ML IVPB SCH (09:02)
[2017-04-09] MEDS: THIAMINE 100 MG TAB GTB SCH (09:02)
[2017-04-09] MEDS: FERROUS SULFATE 60 MG/ML 5ML CUP GTB SCH ×2 (09:02→21:00)
[2017-04-09] MEDS: MULTIVITAMINS 30 ML CUP GTB SCH (09:02)
[2017-04-09] MEDS: FOLIC ACID 1 MG TAB PEG SCH (09:03)
[2017-04-09] MEDS: ARTIFICIAL TEARS 15 ML OPH BOTH EYES SCH ×2 (09:03→21:00)
[2017-04-09] MEDS: LACTOBACILLUS RHAMNOSUS CAP GTB SCH (09:03)
[2017-04-09] MEDS: ASCORBIC ACID 250 MG TAB GTB SCH ×3 (09:03→21:00)
[2017-04-09] MEDS: COLLAGENASE 30 GM TUBE TOP SCH (09:03)
[2017-04-09] MEDS: BALSAM PERU/CASTOR OIL 60 GM TUBE TOP SCH (09:04)
--- NOTE | 2017-04-09 10:37 | CONS ---
Date/Time of Note Date/Time of Note DATE: 04/09/17 TIME: 10:34 Consult Date/Type/Reason Admit Date/Time Apr 02, 2017 at 02:10 Initial Consult Date 04/07/17 Type of Consultation: Pulmonary Ordering Provider: BECKI ESCOBAR Subjective Off pressors Continues PRBC 2 units Neurologically unchanged. Objective Vital Signs Date Time Temp Pulse Resp B/P Pulse Ox O2 Delivery O2 Flow Rate FiO2 04/09/17 07:00 87 21 100/63 98 04/09/17 05:06 30 04/09/17 04:00 97.1 04/08/17 19:00 Mechanical Ventilator Intake and Output 04/08/17 04/08/17 04/09/17 15:00 23:00 07:00 Intake Total 1926.31 ml 1880 ml 1399 ml Output Total 1125 ml 930 ml 840 ml Balance 801.31 ml 950 ml 559 ml Exam PHYSICAL EXAMINATION GENERAL: Chronically appearing young male on vent. VITAL SIGNS: see below. HEENT: Pupils equal, round, and reactive to light. trach site clean and intact, CARDIAC: S1, S2, 1/6 systolic ejection murmur CHEST: Diminished air entry bilaterally. ABDOMEN: Mildly distended. Bowel sounds present no guarding or rebound EXTREMITIES: No cyanosis, clubbing edema +1 NEUROLOGIC: unable to assess. Vegetative state. Results/Medications Result Diagram: 04/09/17 0442 04/09/17 0442 Results 24 hrs Laboratory Tests Test 04/08/17 11:25 04/09/17 04:42 04/09/17 05:15 04/09/17 07:00 Activated Partial Thromboplast Time 40.3 H 36.5 H Mix PTT Normal Plasma Immediate 37.7 Mix PTT Normal Plasma 1 Hour White Blood Count 4.6 #L Red Blood Count 2.18 L Hemoglobin 6.6 *L Hematocrit 20.5 L Mean Corpuscular Volume 94.0 Mean Corpuscular Hemoglobin 30.3 Mean Corpuscular Hemoglobin Concent 32.2 Red Cell Distribution Width 19.9 H Platelet Count 24 *L Mean Platelet Volume 13.4 H Neutrophils % Lymphocytes % Monocytes % Eosinophils % Basophils % Nucleated Red Blood Cells % 0.0 Neutrophils # (Manual) 3.1 Lymphocytes # Monocytes # Eosinophils # Basophils # Nucleated Red Blood Cells # Prothrombin Time 14.8 H Prothrombin Time Ratio 1.2 INR International Normalized Ratio 1.16 Sodium Level 134 L Potassium Level 3.3 L Chloride Level 106 # Carbon Dioxide Level 24 Anion Gap 7 L Blood Urea Nitrogen 16 Creatinine 0.67 Glucose Level 98 Calcium Level 8.3 L Creatine Kinase < 20 L Random Cortisol 2.4 Lab Scanned Report BLOOD TRANSFUSION Blood Gas Specimen Source Blood arterial Arterial Blood Date Drawn 04/09/2017 8:00:41 AM Arterial Blood pH (Temp corrected) 7.435 Arterial Blood pCO2 (Temp correct) 34.9 L Arterial Blood pO2 (Temp corrected) 98.0 Arterial Blood HCO3 22.9 Arterial Blood Base Excess -1.0 Arterial Blood Oxygen Saturation 96.9 Geo Test ACCEPTAB Arterial Blood Gas Puncture Site Right Radial Arterial Blood Carboxyhemoglobin 0.2 Arterial Blood Methemoglobin 0.1 Blood Gas A-a O2 Differential 74.9 H Oxyhemoglobin Percent 96.6 Total Hemoglobin 9.2 L Blood Gas Temperature 37.0 Blood Gas Respiration Rate 12.0 Blood Gas Actual Respiration Rate 18 Blood Gas Modality VENT - AC FiO2 30.0 Blood Gas Tidal Volume 500.0 Blood Gas Low PEEP Setting 5.0 Blood Gas Notified Whom CW Blood Gas Notified Time 04/09/2017 8:10:59 AM Medications Current Medications Lansoprazole (Prevacid) 30 mg DAILY@06 GTB Last administered on 04/09/17 06:29 ; Admin Dose 30 MG; Start 04/02/17 at 06:00 Acetaminophen (Tylenol Liquid) 480 mg Q6H PRN PEG MILD PAIN LEVEL 1-3; Start at 20:30 Eye Lubricant (Artificial Tears Oph) 1 drop BID BOTH EYES Last administered on 04/09/17 09:03; Admin Dose 1 DROP; Start 04/01/17 at 21:00 Ferrous Sulfate (Feosol Liquid Cup) 300 mg BID GTB Last administered on 09:02; Admin Dose 300 MG; Start 04/02/17 at 09:00 Folic Acid (Folic Acid) 1 mg DAILY PEG Last administered on 04/09/17 09:03; Admin Dose 1 MG; Start 04/02/17 at 09:00 Lactobacillus Acidophilus/ Rhamnosus (Culturelle) 1 cap DAILY GTB Last administered on 04/09/17 09:03; Admin Dose 1 CAP; Start 04/02/17 at 09:00 Thiamine HCl (Vitamin B1) 100 mg DAILY GTB Last administered on 04/09/17 09:02 ; Admin Dose 100 MG; Start 04/02/17 at 09:00 Ascorbic Acid (Vitamin C) 250 mg TID GTB Last administered on 04/09/17 09:03; Admin Dose 250 MG; Start 04/01/17 at 21:00 Multivitamins (Multivitamin) 30 ml DAILY GTB Last administered on 04/09/17 09: 02; Admin Dose 30 ML; Start 04/02/17 at 09:00 Polyethylene Glycol 8.5 gm 8.5 gm DAILY NGT Last administered on 04/08/17 08:44 ; Admin Dose 8.5 GM; Start 04/02/17 at 09:00 Norepinephrine 16 mg/Dextrose 500 ml @ 1.87 mls/hr TITRATE IV Last administered on 04/05/17 12:58; Admin Dose 5.62 MLS/HR; Start 04/02/17 at 03:00 Dextrose 1,000 ml @ 125 mls/hr Q8H IV Last administered on 04/09/17 04:00; Admin Dose 125 MLS/HR; Start 04/04/17 at 10:00 Levetiracetam (Keppra 1,000mg/ 100ml (Pmx)) 100 ml @ 400 mls/hr Q12 IVPB Last administered on 04/09/17 09:02; Admin Dose 400 MLS/HR; Start 04/04/17 at 22:30 Amikacin Sulfate (Amikacin Iv Per Pharmacy) AMIKACIN PER PHARMACY NOTE XX ; Start 04/04/17 at 11:30 Collagenase (Santyl) 1 applic DAILY TOP Last administered on 04/09/17 09:03; Admin Dose 1 APPLIC; Start 04/05/17 at 09:00 Collagenase 1 applic 1 applic PRN PRN TOP PRN; Start 04/05/17 at 00:30 Daptomycin 410 mg/ Sodium Chloride 100 ml @ 200 mls/hr Q24H IVPB Last administered on 04/08/17 14:56; Admin Dose 200 MLS/HR; Start 04/05/17 at 15:00 Phenylephrine HCl/ Dextrose (Ankush-Syneph/D5W) 500 ml @ 75 mls/hr TITRATE IV Last administered on 04/08/17 06:50; Admin Dose 52.5 MLS/HR; Start 04/07/17 at 10:00 Desmopressin Acetate 2 mcg 2 mcg BID SC Last administered on 04/09/17 09:02; Admin Dose 2 MCG; Start 04/07/17 at 22:50 Amikacin Sulfate/ Sodium Chloride (Amikacin/NS) 254 ml @ 254 mls/hr Q48H IVPB ; Start 04/09/17 at 16:00 Lorazepam 1 mg 1 mg Q1H PRN IM SEIZURES; Start 04/08/17 at 12:00 Valproate Sodium/ Sodium Chloride (Depacon/NS) 55 ml @ 55 mls/hr Q6 IVPB Last administered on 04/09/17 06:30; Admin Dose 55 MLS/HR; Start 04/08/17 at 21:30 Lorazepam (Ativan) 2 mg Q6H PRN PO ANXIETY; Start 04/08/17 at 20:30 Assessment/Plan Chief Complaint/Hosp Course Assessment and recommendations; 1. Patient with a history of chronic respiratory failure and severe anoxic brain injury admitted for UTI and sepsis, also has sacral decubitus wound growing multiple organisms. Patient currently on appropriate antibiotic regimen. 2. Hypotension requiring pressor support. relative adrenal insufficiency 3. Likely underlying cardiomyopathy. 4. Concern for new seizures. 5. Anemia and severe thrombocytopenia. 6. Hypernatremia and hyperchloremia with interval resolution. Plan 1. Continue vasopressors as needed. 2. Trial hydrocortisone. 3. Monitor platelets 4. Transfuse prbc. 5. Replace potassium 6. EEG concern for underlying status epilepticus Overall prognosis very poor. ok for transfer to [place] if hemodymanically stable after prbc Problems: EARL VIERA MD, [facility] Apr 09, 2017 10:37
[2017-04-09 10:52] LABS: ANISOCYTOSIS 1+ (0-0); EOSINOPHILS % (M) 5 % (0-7); MONOCYTES % (M) 6 % (0-11); PLATELET ESTIMATE DECREASED; POLYCHROMASIA 3+ (0-0)
--- NOTE | 2017-04-09 11:40 | PN ---
Date/Time of Note Date/Time of Note DATE: 04/09/17 TIME: 11:36 Assessment/Plan VTE Prophylaxis VTE Prophylaxis Intervention: contraindicated VTE Contraindication Reason: thrombocytopenia Lines/Catheters IV [facility] (from [facility] Central Line Central line still needed: Yes Urinary Cath still in place: Yes Reason Cath still needed: urinary retention Assessment/Plan Chief Complaint/Hosp Course Assessment/Plan: 41-year-old male coming from halfway with: 1. Septic shock-likely secondary to urinary tract infection, as well as pneumonia and sacral ulcer sections. Patient has history of prior multiple UTIs. Wound culture does show positive E. coli, enterococcus, Proteus, and MRSA as well. -Continue aggressive IV fluid hydration, broad-spectrum antibiotics meropenem and amikacin for now -Follow-up infectious disease consult recommendations. 2. Bilateral pneumonia and pleural effusion. -continue broad-spectrum antibiotics, follow-up final culture results. 3. Clinic staged sacral ulcers for which at least 1 is stage IV -Medicines per wound care consult and patient, continue broad-spectrum antibiotic, follow up final culture results 4. History of seizure disorder: Appears to have some seizure activity presently with eye twitching, EEG done yesterday, results pending. -Increase Keppra to 1500 IV twice daily, and Ativan as needed - will consider official neurology consult if seizures reoccur or persist 6. Previous cerebrovascular accident -monitor for now 7. Chronic vegetative state -trach and PEG 8. Chronic respiratory failure, vent dependent -positive pleural effusions found on chest x-ray - continue oxygen supplementation via mechanical ventilation, follow pulmonary recommendations 9. Status post PEG tube placement -continue PEG tube feeds 10. anemia of chronic disease -monitor H and H. 11. Hypernatremia: Resolved today equals 134 -for now continue D5W IV fluids, monitor BMP in a.m, free water lower amount today. 12. possible Diabetes insipidus: Patient with increased urine output. -Placed back on desmopressin, continue for now 13. low phosphorus: Pleated, monitor 14. Thrombocytopenia: Lovenox has been held, no signs of bleeding. 31- > 25-> 19 -> 17->20-> 24. Appreciate hematology input. -Continue to hold all anticoagulants -Follow-up hematology oncology Rec's Critical care time spent on patient care today: 40 minutes Problems: Subjective 24 Hr Interval Summary Free Text/Dictation Off pressor support since yesterday. Receive unit of platelet yesterday, presently getting PRBC transfusion as well. Exam/Review of Systems Vital Signs Vitals Vital Signs Date Time Temp Pulse Resp B/P Pulse Ox O2 Delivery O2 Flow Rate FiO2 04/09/17 11:00 78 16 99 30 04/09/17 07:00 100/63 04/09/17 04:00 97.1 04/08/17 19:00 Mechanical Ventilator Intake and Output 04/08/17 04/08/17 04/09/17 15:00 23:00 07:00 Intake Total 1926.31 ml 1880 ml 1399 ml Output Total 1125 ml 930 ml 840 ml Balance 801.31 ml 950 ml 559 ml Exam Constitutional: non-verbal Head: normocephalic ENMT: other (+ tracheostomy) Neck: supple Respiratory: some congested cough, crackles/rales, diminished breath sounds, other (Bilateral Coarse BS+) Cardiovascular: nl pulses, regular rate and rhythm Gastrointestinal: non-tender, other (G tube in place ), soft Results Result Diagram: 04/09/17 0442 04/09/17 0442 Results 24 hrs Laboratory Tests Test 04/09/17 04:42 04/09/17 05:15 04/09/17 07:00 White Blood Count 4.6 #L Red Blood Count 2.18 L Hemoglobin 6.6 *L Hematocrit 20.5 L Mean Corpuscular Volume 94.0 Mean Corpuscular Hemoglobin 30.3 Mean Corpuscular Hemoglobin Concent 32.2 Red Cell Distribution Width 19.9 H Platelet Count 24 *L Mean Platelet Volume 13.4 H Neutrophils % Segmented Neutrophils % (Manual) 71 Band Neutrophils % (Manual) 1 Lymphocytes % Lymphocytes % (Manual) 17 Monocytes % Monocytes % (Manual) 6 Eosinophils % Eosinophils % (Manual) 5 Basophils % Nucleated Red Blood Cells % 0.0 Neutrophils # (Manual) 3.3 Band Neutrophils # 0.0 Absolute Lymphocytes (Manual) 0.7 L Lymphocytes # Monocytes # Absolute Monocytes (Manual) 0.2 L Eosinophils # Basophils # Nucleated Red Blood Cells # Platelet Estimate DECREASED Polychromasia 3+ Anisocytosis 1+ Macrocytosis 1+ Prothrombin Time 14.8 H Prothrombin Time Ratio 1.2 INR International Normalized Ratio 1.16 Activated Partial Thromboplast Time 36.5 H Sodium Level 134 L Potassium Level 3.3 L Chloride Level 106 # Carbon Dioxide Level 24 Anion Gap 7 L Blood Urea Nitrogen 16 Creatinine 0.67 Glucose Level 98 Calcium Level 8.3 L Creatine Kinase < 20 L Random Cortisol 2.4 Lab Scanned Report BLOOD TRANSFUSION Blood Gas Specimen Source Blood arterial Arterial Blood Date Drawn 04/09/2017 8:00:41 AM Arterial Blood pH (Temp corrected) 7.435 Arterial Blood pCO2 (Temp correct) 34.9 L Arterial Blood pO2 (Temp corrected) 98.0 Arterial Blood HCO3 22.9 Arterial Blood Base Excess -1.0 Arterial Blood Oxygen Saturation 96.9 Geo Test ACCEPTAB Arterial Blood Gas Puncture Site Right Radial Arterial Blood Carboxyhemoglobin 0.2 Arterial Blood Methemoglobin 0.1 Blood Gas A-a O2 Differential 74.9 H Oxyhemoglobin Percent 96.6 Total Hemoglobin 9.2 L Blood Gas Temperature 37.0 Blood Gas Respiration Rate 12.0 Blood Gas Actual Respiration Rate 18 Blood Gas Modality VENT - AC FiO2 30.0 Blood Gas Tidal Volume 500.0 Blood Gas Low PEEP Setting 5.0 Blood Gas Notified Whom CW Blood Gas Notified Time 04/09/2017 8:10:59 AM Medications Medications Current Medications Lansoprazole (Prevacid) 30 mg DAILY@06 GTB Last administered on 04/09/17 06:29 ; Admin Dose 30 MG; Start 04/02/17 at 06:00 Acetaminophen (Tylenol Liquid) 480 mg Q6H PRN PEG MILD PAIN LEVEL 1-3; Start at 20:30 Eye Lubricant (Artificial Tears Oph) 1 drop BID BOTH EYES Last administered on 04/09/17 09:03; Admin Dose 1 DROP; Start 04/01/17 at 21:00 Ferrous Sulfate (Feosol Liquid Cup) 300 mg BID GTB Last administered on 09:02; Admin Dose 300 MG; Start 04/02/17 at 09:00 Folic Acid (Folic Acid) 1 mg DAILY PEG Last administered on 04/09/17 09:03; Admin Dose 1 MG; Start 04/02/17 at 09:00 Lactobacillus Acidophilus/ Rhamnosus (Culturelle) 1 cap DAILY GTB Last administered on 04/09/17 09:03; Admin Dose 1 CAP; Start 04/02/17 at 09:00 Thiamine HCl (Vitamin B1) 100 mg DAILY GTB Last administered on 04/09/17 09:02 ; Admin Dose 100 MG; Start 04/02/17 at 09:00 Ascorbic Acid (Vitamin C) 250 mg TID GTB Last administered on 04/09/17 09:03; Admin Dose 250 MG; Start 04/01/17 at 21:00 Multivitamins (Multivitamin) 30 ml DAILY GTB Last administered on 04/09/17 09: 02; Admin Dose 30 ML; Start 04/02/17 at 09:00 Polyethylene Glycol 8.5 gm 8.5 gm DAILY NGT Last administered on 04/08/17 08:44 ; Admin Dose 8.5 GM; Start 04/02/17 at 09:00 Norepinephrine 16 mg/Dextrose 500 ml @ 1.87 mls/hr TITRATE IV Last administered on 04/05/17 12:58; Admin Dose 5.62 MLS/HR; Start 04/02/17 at 03:00 Dextrose 1,000 ml @ 125 mls/hr Q8H IV Last administered on 04/09/17 10:54; Admin Dose 125 MLS/HR; Start 04/04/17 at 10:00 Levetiracetam (Keppra 1,000mg/ 100ml (Pmx)) 100 ml @ 400 mls/hr Q12 IVPB Last administered on 04/09/17 09:02; Admin Dose 400 MLS/HR; Start 04/04/17 at 22:30 Amikacin Sulfate (Amikacin Iv Per Pharmacy) AMIKACIN PER PHARMACY NOTE XX ; Start 04/04/17 at 11:30 Collagenase (Santyl) 1 applic DAILY TOP Last administered on 04/09/17 09:03; Admin Dose 1 APPLIC; Start 04/05/17 at 09:00 Collagenase 1 applic 1 applic PRN PRN TOP PRN; Start 04/05/17 at 00:30 Daptomycin 410 mg/ Sodium Chloride 100 ml @ 200 mls/hr Q24H IVPB Last administered on 04/08/17 14:56; Admin Dose 200 MLS/HR; Start 04/05/17 at 15:00 Phenylephrine HCl/ Dextrose (Ankush-Syneph/D5W) 500 ml @ 75 mls/hr TITRATE IV Last administered on 04/08/17 06:50; Admin Dose 52.5 MLS/HR; Start 04/07/17 at 10:00 Desmopressin Acetate 2 mcg 2 mcg BID SC Last administered on 04/09/17 09:02; Admin Dose 2 MCG; Start 04/07/17 at 22:50 Amikacin Sulfate/ Sodium Chloride (Amikacin/NS) 254 ml @ 254 mls/hr Q48H IVPB ; Start 04/09/17 at 16:00 Lorazepam 1 mg 1 mg Q1H PRN IM SEIZURES; Start 04/08/17 at 12:00 Valproate Sodium/ Sodium Chloride (Depacon/NS) 55 ml @ 55 mls/hr Q6 IVPB Last administered on 04/09/17 06:30; Admin Dose 55 MLS/HR; Start 04/08/17 at 21:30 Lorazepam (Ativan) 2 mg Q6H PRN PO ANXIETY; Start 04/08/17 at 20:30 Hydrocortisone 100 mg 100 mg Q8 IV ; Start 04/09/17 at 14:00 Potassium Chloride (KCl 40 MEQ/250 ML NS) 250 ml @ 62.5 mls/hr ONCE ONCE IVPB ; Start 04/09/17 at 12:00; Stop 04/09/17 at 15:59 BECKI ESCOBAR Apr 09, 2017 11:40
[2017-04-09] MEDS ORDERED: POTASSIUM CHLORIDE 250 ML IVPB ONE (12:00)
[2017-04-09 12:31] LABS: CALCIUM 8.3 mg/dl (8.4-10.2); CREATININE 0.68 mg/dl (0.61-1.24); POTASSIUM 3.1 mmol/L (3.5-5.1)
[2017-04-09] MEDS: HYDROCORTISONE 100 MG INJ IV SCH ×2 (13:57→22:13)
[2017-04-09] MEDS: DAPTOMYCIN 410 MG in SOD CHLORIDE 0.9% 100 ML IVPB SCH (15:11)
--- NOTE | 2017-04-09 15:49 | PDOCDIS ---
Discharge Instructions CONDITION Patient Condition: Stable HOME CARE INSTRUCTIONS: Special Diet: Continuous Tube Feeding BECKI ESCOBAR Apr 09, 2017 15:49
--- NOTE | 2017-04-09 15:56 | DS ---
Date/Time of Note Date/Time of Note DATE: 04/09/17 TIME: 15:50 Discharge Summary Admission/Discharge Info Admit Date/Time Apr 02, 2017 at 02:10 Discharge Date/Time Discharge Diagnosis 1. Septic shock-likely secondary to urinary tract infection, as well as pneumonia and sacral ulcer sections. 2. Bilateral pneumonia and pleural effusion. 3. Clinic staged sacral ulcers for which at least 1 is stage IV 4. History of seizure disorder:on Keppra IV BID, EEG results pending 6. Previous cerebrovascular accident -monitor for now 7. Chronic vegetative state -trach and PEG 8. Chronic respiratory failure, vent dependent -positive pleural effusions found on chest x-ray 9. Status post PEG tube placement -continue PEG tube feeds 10. anemia of chronic disease -monitor H and H. 11. Hypernatremia 12. possible Diabetes insipidus: 13. low phosphorus: repleated 14. Thrombocytopenia: Lovenox has been held, no signs of bleeding. 31- > 25-> 19 -> 17->20-> 24. s/p plt transfusions Patient Condition: Serious Hospital Course 42-year-old male who is unfortunately clinically respiratory dependent in a vegetative state. His mother reports that he had a history of seizures, he is currently trached to the ventilator permanently and sustained on PEG tube feeds and resides in a correction facility. He has had multiple episodes of UTIs and pneumonias and was just recently discharged a month ago from a different hospital after being hospitalized for pneumonia and sepsis. The patient was found to be septic and this is thought to be secondary to urinary tract infection, along with wound infections and pneumonia. He was admitted seen by pulmonary, infectious disease, hematology oncology teams. He was placed on antibiotics, also required pressor support and also treated for what was thought to be seizure activity as he has a prior history of this, as his seizure medicines were increased, EEG was performed and results are still pending by the time of discharge. He continued on mechanical ventilation with the trach, and also was started on G-tube feeds as well. He was found with hypernatremia, and this was treated with D5W IV fluids along with DDAVP and free water. He also had thrombocytopenia, and was given platelet transfusions and evaluated by hematology oncology team for this. His CODE STATUS was changed to DNR/DNI as well. He was eventually taken off pressor support, and remained in a chronic vegetative state, and we transferred to acute hospital where his insurance is located later today. Home Meds Reported Medications Silver Chloride (SILVER GEL) 14.2 Gm Gel..gram., 14.2 GM TP Q3D for OVER OPEN ULCER 04/01/17 Multivitamin With Minerals (BIOVOL) 473 Ml Syrup, 15 ML PEG DAILY 04/01/17 Multivitamin with Minerals (Multivitamins with Minerals) 1 Each Tablet, 1 EACH PO, TAB 04/01/17 Dextran/Hypromellose/Glycerin (Artificial Tears Drops) 15 Ml Drops, 1 DROP BOTH EYES BID, EA 04/01/17 Desmopressin (Nonrefrigerated) (Desmopressin 10 Mcg/0.1 ml Spr) 10 Mcg/0.1 Ml [place].pump, 1 SPRAY NASAL BID, #1 BOTTLE 04/01/17 Ferrous Sulfate* (Ferrous Sulfate*) 220 Mg/5 Ml Solution, 7.5 ML GTB BID, ML 04/01/17 Docusate Sodium* (Docusate Sodium*) 100 Mg Capsule, 100 MG GTB DAILY, #30 CAP 04/01/17 Bisacodyl* (Bisacodyl*) 10 Mg Supp, 10 MG SD Q48 Y for PRN, SUPP 04/01/17 Lactobacillus Rhamnosus* (Culturelle*) 1 Each Cap.sprink, 1 CAP GTB DAILY, CAP 04/01/17 Hydrocodone/Acetaminophen ([place] 5-325 Tablet) 1 Each Tablet, 1 EACH GTB Q6H, TAB 04/01/17 Famotidine* (Famotidine*) 20 Mg Tablet, 20 MG GTB QHS, #30 TAB 04/01/17 Folic Acid* (Folic Acid*) 1 Mg Tablet, 1 MG PEG DAILY, TAB 04/01/17 Thiamine* (Thiamine*) 100 Mg Tablet, 100 MG GTB DAILY, TAB 04/01/17 Acetaminophen* (Acetaminophen* Susp) 160 Mg/5 Ml Oral.susp, 15 ML PEG Q6H Y for MILD PAIN LEVEL 1-3, ML FOR FEVER 04/01/17 Ascorbic Acid* (Vitamin C* Chew) 125 Mg Tab.chew, 250 MG GTB TID, TAB.CHEW 04/01/17 Magnesium Hydroxide* (Milk Of Magnesia*) 400 Mg/5 Ml Oral.susp, 30 ML PEG Q12H for CONSTIPATION, ML 04/01/17 Levetiracetam* (Levetiracetam*) 500 Mg/5 Ml Solution, 500 MG GTB BID, ML 04/01/17 Ondansetron Hcl* (Zofran*) 4 Mg Tab, 4 MG PEG Q6H Y for NAUSEA AND OR VOMITING, TAB 04/01/17 Primary Care Provider Care Physician No Primary Time spent on discharge: > 30 minutes Pending Labs Laboratory Tests Test 04/09/17 04:42 04/09/17 05:15 04/09/17 07:00 04/09/17 12:07 White Blood Count 4.610^3/ul (4.8-10.8) Red Blood Count 2.1810^6/ul (4.70-6.10) Hemoglobin 6.6g/dl (14.0-18.0) Hematocrit 20.5% (42.0-52.0) Mean Corpuscular Volume 94.0fl (82.0-101.0) Mean Corpuscular Hemoglobin 30.3pg (29.0-33.0) Mean Corpuscular Hemoglobin Concent 32.2g/dl (32.0-37.0) Red Cell Distribution Width 19.9% (11.5-14.5) Platelet Count 2410^3/UL (140-415) Mean Platelet Volume 13.4fl (7.4-10.4) Neutrophils % % (39.0-77.0) Segmented Neutrophils % (Manual) 71% (39-77) Band Neutrophils % (Manual) 1% (0-4) Lymphocytes % % (15.0-51.0) Lymphocytes % (Manual) 17% (15-51) Monocytes % % (0.0-11.0) Monocytes % (Manual) 6% (0-11) Eosinophils % % (0.0-7.0) Eosinophils % (Manual) 5% (0-7) Basophils % % (0.0-2.0) Nucleated Red Blood Cells % 0.0/100WBC (0.0-0.0) Neutrophils # (Manual) 3.310^3/ul (1.7-7.5) Band Neutrophils # 0.010^3/ul (0.0-0.6) Absolute Lymphocytes (Manual) 0.710^3/ul (0.8-2.9) Lymphocytes # 10^3/ul (0.8-2.9) Monocytes # 10^3/ul (0.3-0.9) Absolute Monocytes (Manual) 0.210^3/ul (0.3-0.9) Eosinophils # 10^3/ul (0.0-0.5) Basophils # 10^3/ul (0.0-0.1) Nucleated Red Blood Cells # 10^3/ul (0.0-0.0) Platelet Estimate DECREASED Polychromasia 3+ (0-0) Anisocytosis 1+ (0-0) Macrocytosis 1+ (0-0) Prothrombin Time 14.8Sec (12.2-14.2) Prothrombin Time Ratio 1.2 INR International Normalized Ratio 1.16 Activated Partial Thromboplast Time 36.5Sec (25.0-35.0) Sodium Level 134mmol/L (135-144) 131mmol/L (135-144) Potassium Level 3.3mmol/L (3.5-5.1) 3.1mmol/L (3.5-5.1) Chloride Level 106mmol/L (97-110) 105mmol/L (97-110) Carbon Dioxide Level 24mmol/L (21-31) 22mmol/L (21-31) Anion Gap 7 (8-16) 7 (8-16) Blood Urea Nitrogen 16mg/dl (7-20) 16mg/dl (7-20) Creatinine 0.67mg/dl (0.61-1.24) 0.68mg/dl (0.61-1.24) Glucose Level 98mg/dl (70-220) 105mg/dl (70-220) Calcium Level 8.3mg/dl (8.4-10.2) 8.3mg/dl (8.4-10.2) Creatine Kinase < 20IU/L (23-200) Random Cortisol 2.4ug/dl Lab Scanned Report BLOOD [id number] Blood Gas Specimen Source Blood arterial Arterial Blood Date Drawn 04/09/2017 8:00:41 AM Arterial Blood pH (Temp corrected) 7.435 (7.350-7.450) Arterial Blood pCO2 (Temp correct) 34.9mmhg (35-45) Arterial Blood pO2 (Temp corrected) 98.0mmHG (80-100.0) Arterial Blood HCO3 22.9mmol/L (22.0-26.0) Arterial Blood Base Excess -1.0mmol/L (-3.0-3) Arterial Blood Oxygen Saturation 96.9mmHG (95.0-98.0) Geo Test ACCEPTAB Arterial Blood Gas Puncture Site Right Radial Arterial Blood Carboxyhemoglobin 0.2% (0.0-3.0) Arterial Blood Methemoglobin 0.1% (0.0-1.5) Blood Gas A-a O2 Differential 74.9mmHg (7.0-24.0) Oxyhemoglobin Percent 96.6% (93.0-99.0) Total Hemoglobin 9.2g/dl (12.0-18.0) Blood Gas Temperature 37.0C Blood Gas Respiration Rate 12.0 Blood Gas Actual Respiration Rate 18 Blood Gas Modality VENT - AC FiO2 30.0% Blood Gas Tidal Volume 500.0mL Blood Gas Low PEEP Setting 5.0cmH2O Blood Gas Notified Whom CW Blood Gas Notified Time 04/09/2017 8:10:59 AM BECKI ESCOBAR Apr 09, 2017 15:56
[2017-04-09] MEDS ORDERED: AMIKACIN 1,000 MG in SOD CHLORIDE 0.9% 250 ML IVPB SCH (16:00)
--- NOTE | 2017-04-09 16:10 | CONS ---
Date/Time of Note Date/Time of Note DATE: 04/09/17 TIME: 16:10 Assessment/Plan Assessment/Plan Chief Complaint/Hosp Course ID PROGRESS NOTE CURRENT ABX: => Daptomycin, Amikacin 24H INTERVAL SUMMARY * NINDWELLINGS: Trach, PEG, German, and right femoral triple lumen catheter. * MICROBIOLOGY: Endotracheal aspirate growing Proteus mirabilis and Providencia stuartii. Blood culture on admission grew Ecoli. Urine culture growing E coli Proteus mirabilis. Wound cultures growing E coli, Proteus mirabilis, VRE and MRSA. EXAM GEN: VSS, no fevers, chronic debility HEENT: Unremarkable NECK: trach site clear CVS: RRR, S1 and S2 CHEST: Coarse BS b/l ABD: Soft, NT, + BS EXT: Contractured without cyanosis. SKIN: With multiple necrotic wounds. ID ASSESSMENT 41 yo M admit with: 1. Severe sepsis with shock. 2. Escherichia coli bacteremia, repeat blood cultures negative. 3. Multidrug resistant urinary tract infection. 4. Scrotal cellulitis wound * WOUND CULTURE Final Organism 1 ESCHERICHIA COLI QUANTITY 3+ Organism 2 PROTEUS MIRABILIS QUANTITY 3+ Organism 3 VANCO RESISTANT ENTEROCOCCUS QUANTITY ISOLATED FROM BROTH ONLY . MULTI DRUG RESISTANT ORGANISM Organism 4 METHICILLIN RESISTANT S.AUREUS 5. Multiple unstageable wounds. 6. Chronic respiratory failure with sputum culture growing multiple bacteria likely colonized. 7. Bilateral pleural effusion. 8. Thrombocytopenia. 9. Vegetative state. 10. Seizure disorder. (-) MRSA Nares INVASIVES: Trach, peg, FC, femoral TLC ABX ALLERGY: Keflex CURRENT ABX: => Daptomycin, Amikacin ID RECOMMENDATIONS 1. Continue current ABX 2. Local wound care . Problems: Consultation Date/Type/Reason Admit Date/Time Apr 02, 2017 at 02:10 Initial Consult Date 04/07/17 Type of Consultation: ID Referring Provider: BECKI ESCOBAR Exam/Review of Systems Vital Signs Vitals Vital Signs Date Time Temp Pulse Resp B/P Pulse Ox O2 Delivery O2 Flow Rate FiO2 04/09/17 15:00 67 14 103/66 97 04/09/17 14:30 97.5 04/09/17 14:00 Mechanical Ventilator Trach Collar 04/09/17 11:00 30 Intake and Output 04/08/17 04/08/17 04/09/17 15:00 23:00 07:00 Intake Total 1926.31 ml 1880 ml 1699 ml Output Total 1125 ml 930 ml 940 ml Balance 801.31 ml 950 ml 759 ml Results Result Diagram: 04/09/17 0442 04/09/17 1207 Results 24 hrs Laboratory Tests Test 04/09/17 04:42 04/09/17 05:15 04/09/17 07:00 04/09/17 12:07 White Blood Count 4.6 #L Red Blood Count 2.18 L Hemoglobin 6.6 *L Hematocrit 20.5 L Mean Corpuscular Volume 94.0 Mean Corpuscular Hemoglobin 30.3 Mean Corpuscular Hemoglobin Concent 32.2 Red Cell Distribution Width 19.9 H Platelet Count 24 *L Mean Platelet Volume 13.4 H Neutrophils % Segmented Neutrophils % (Manual) 71 Band Neutrophils % (Manual) 1 Lymphocytes % Lymphocytes % (Manual) 17 Monocytes % Monocytes % (Manual) 6 Eosinophils % Eosinophils % (Manual) 5 Basophils % Nucleated Red Blood Cells % 0.0 Neutrophils # (Manual) 3.3 Band Neutrophils # 0.0 Absolute Lymphocytes (Manual) 0.7 L Lymphocytes # Monocytes # Absolute Monocytes (Manual) 0.2 L Eosinophils # Basophils # Nucleated Red Blood Cells # Platelet Estimate DECREASED Polychromasia 3+ Anisocytosis 1+ Macrocytosis 1+ Prothrombin Time 14.8 H Prothrombin Time Ratio 1.2 INR International Normalized Ratio 1.16 Activated Partial Thromboplast Time 36.5 H Sodium Level 134 L 131 L Potassium Level 3.3 L 3.1 L Chloride Level 106 # 105 Carbon Dioxide Level 24 22 Anion Gap 7 L 7 L Blood Urea Nitrogen 16 16 Creatinine 0.67 0.68 Glucose Level 98 105 Calcium Level 8.3 L 8.3 L Creatine Kinase < 20 L Random Cortisol 2.4 Lab Scanned Report BLOOD TRANSFUSION Blood Gas Specimen Source Blood arterial Arterial Blood Date Drawn 04/09/2017 8:00:41 AM Arterial Blood pH (Temp corrected) 7.435 Arterial Blood pCO2 (Temp correct) 34.9 L Arterial Blood pO2 (Temp corrected) 98.0 Arterial Blood HCO3 22.9 Arterial Blood Base Excess -1.0 Arterial Blood Oxygen Saturation 96.9 Geo Test ACCEPTAB Arterial Blood Gas Puncture Site Right Radial Arterial Blood Carboxyhemoglobin 0.2 Arterial Blood Methemoglobin 0.1 Blood Gas A-a O2 Differential 74.9 H Oxyhemoglobin Percent 96.6 Total Hemoglobin 9.2 L Blood Gas Temperature 37.0 Blood Gas Respiration Rate 12.0 Blood Gas Actual Respiration Rate 18 Blood Gas Modality VENT - AC FiO2 30.0 Blood Gas Tidal Volume 500.0 Blood Gas Low PEEP Setting 5.0 Blood Gas Notified Whom CW Blood Gas Notified Time 04/09/2017 8:10:59 AM Medications Medications Current Medications Lansoprazole (Prevacid) 30 mg DAILY@06 GTB Last administered on 04/09/17 06:29 ; Admin Dose 30 MG; Start 04/02/17 at 06:00 Acetaminophen (Tylenol Liquid) 480 mg Q6H PRN PEG MILD PAIN LEVEL 1-3; Start at 20:30 Eye Lubricant (Artificial Tears Oph) 1 drop BID BOTH EYES Last administered on 04/09/17 09:03; Admin Dose 1 DROP; Start 04/01/17 at 21:00 Ferrous Sulfate (Feosol Liquid Cup) 300 mg BID GTB Last administered on 09:02; Admin Dose 300 MG; Start 04/02/17 at 09:00 Folic Acid (Folic Acid) 1 mg DAILY PEG Last administered on 04/09/17 09:03; Admin Dose 1 MG; Start 04/02/17 at 09:00 Lactobacillus Acidophilus/ Rhamnosus (Culturelle) 1 cap DAILY GTB Last administered on 04/09/17 09:03; Admin Dose 1 CAP; Start 04/02/17 at 09:00 Thiamine HCl (Vitamin B1) 100 mg DAILY GTB Last administered on 04/09/17 09:02 ; Admin Dose 100 MG; Start 04/02/17 at 09:00 Ascorbic Acid (Vitamin C) 250 mg TID GTB Last administered on 04/09/17 13:57; Admin Dose 250 MG; Start 04/01/17 at 21:00 Multivitamins (Multivitamin) 30 ml DAILY GTB Last administered on 04/09/17 09: 02; Admin Dose 30 ML; Start 04/02/17 at 09:00 Polyethylene Glycol 8.5 gm 8.5 gm DAILY NGT Last administered on 04/08/17 08:44 ; Admin Dose 8.5 GM; Start 04/02/17 at 09:00 Norepinephrine 16 mg/Dextrose 500 ml @ 1.87 mls/hr TITRATE IV Last administered on 04/05/17 12:58; Admin Dose 5.62 MLS/HR; Start 04/02/17 at 03:00 Dextrose (D5W) 1,000 ml @ 125 mls/hr Q8H IV Last administered on 04/09/17 13: 53; Admin Dose 125 MLS/HR; Start 04/04/17 at 10:00 Amikacin Sulfate (Amikacin Iv Per Pharmacy) AMIKACIN PER PHARMACY NOTE XX ; Start 04/04/17 at 11:30 Collagenase (Santyl) 1 applic DAILY TOP Last administered on 04/09/17 09:03; Admin Dose 1 APPLIC; Start 04/05/17 at 09:00 Collagenase 1 applic 1 applic PRN PRN TOP PRN; Start 04/05/17 at 00:30 Daptomycin 410 mg/ Sodium Chloride 100 ml @ 200 mls/hr Q24H IVPB Last administered on 04/09/17 15:11; Admin Dose 200 MLS/HR; Start 04/05/17 at 15:00 Phenylephrine HCl/ Dextrose (Ankush-Syneph/D5W) 500 ml @ 75 mls/hr TITRATE IV Last administered on 04/08/17 06:50; Admin Dose 52.5 MLS/HR; Start 04/07/17 at 10:00 Desmopressin Acetate 2 mcg 2 mcg BID SC Last administered on 04/09/17 09:02; Admin Dose 2 MCG; Start 04/07/17 at 22:50 Amikacin Sulfate/ Sodium Chloride (Amikacin/NS) 254 ml @ 254 mls/hr Q48H IVPB Last administered on 04/09/17 15:55; Admin Dose 254 MLS/HR; Start 04/09/17 at 16: 00 Lorazepam 1 mg 1 mg Q1H PRN IM SEIZURES; Start 04/08/17 at 12:00 Valproate Sodium/ Sodium Chloride (Depacon/NS) 55 ml @ 55 mls/hr Q6 IVPB Last administered on 04/09/17 12:46; Admin Dose 55 MLS/HR; Start 04/08/17 at 21:30 Lorazepam (Ativan) 2 mg Q6H PRN PO ANXIETY; Start 04/08/17 at 20:30 Hydrocortisone 100 mg 100 mg Q8 IV Last administered on 04/09/17 13:57; Admin Dose 100 MG; Start 04/09/17 at 14:00 Levetiracetam (Keppra 1,500mg/ 100ml (Pmx)) 100 ml @ 400 mls/hr Q12 IVPB ; Start 04/09/17 at 21:00 VIDHYA MANCIA NP Apr 09, 2017 16:10
[2017-04-09] MEDS ORDERED: LEVETIRACETAM 1500 MG (PMX) 100 ML IVPB SCH (21:00)
[2017-04-09] MEDS ORDERED: SOD CHLORIDE 0.9% 500 ML IV ONE (21:30)
[2017-04-09] MEDS ORDERED: NORepinephrine 8MG/250 ML (PMX 250 ML IV SCH (21:30)
== END 2017-04-10 00:06 | disposition short-term general hospital (02) | DRG 870 ==
LOC: E/R 18:17 → ICU 04-02 02:10
PROVIDERS: ADMIT Family Medicine; ATTEND Family Medicine
PROC: 5A1955Z Respiratory Ventilation, Greater than 96 Consecutive Hours (ICD-10-PCS; principal; 2017-04-01)
PROC: 30233N1 Transfusion of Nonautologous Red Blood Cells into Peripheral Vein, Percutaneous Approach (ICD-10-PCS; 2017-04-01)
PROC: 06HM33Z Insertion of Infusion Device into Right Femoral Vein, Percutaneous Approach (ICD-10-PCS; 2017-04-01)
PROC: B54BZZA Ultrasonography of Right Lower Extremity Veins, Guidance (ICD-10-PCS; 2017-04-01)
PROC: 30233R1 Transfusion of Nonautologous Platelets into Peripheral Vein, Percutaneous Approach (ICD-10-PCS; 2017-04-06)
DX: A41.51 Sepsis due to Escherichia coli [E. coli] (principal); J96.20 Acute and chronic respiratory failure, unspecified whether with hypoxia or hypercapnia; R65.21 Severe sepsis with septic shock; G93.1 Anoxic brain damage, not elsewhere classified; G93.40 Encephalopathy, unspecified; J90 Pleural effusion, not elsewhere classified; J18.9 Pneumonia, unspecified organism; L89.154 Pressure ulcer of sacral region, stage 4; N17.9 Acute kidney failure, unspecified; E87.2 Acidosis; E87.0 Hyperosmolality and hypernatremia; E23.2 Diabetes insipidus; I42.9 Cardiomyopathy, unspecified; N39.0 Urinary tract infection, site not specified; R40.3 Persistent vegetative state; G40.909 Epilepsy, unspecified, not intractable, without status epilepticus; G31.84 Mild cognitive impairment of uncertain or unknown etiology; L89.95 Pressure ulcer of unspecified site, unstageable; E87.6 Hypokalemia; I95.9 Hypotension, unspecified; D64.9 Anemia, unspecified; D69.6 Thrombocytopenia, unspecified; D63.8 Anemia in other chronic diseases classified elsewhere; Z86.73 Personal history of transient ischemic attack (TIA), and cerebral infarction without residual deficits; Z88.1 Allergy status to other antibiotic agents; Z93.1 Gastrostomy status
CPT/HCPCS: 36415; 36430; 36600; 71010; 76937; 80048; 80053; 80150; 80202; 81001; 82533; 82550; 82553; 82803; 83605; 83735; 84100; 84484; 85025; 85049; 85335; 85362; 85378; 85384; 85610; 85670; 85730; 86644; 86850; 86900; 86901; 86920; 86945; 87040; 87045; 87070; 87081; 87086; 89220; 93005; 94002; 94003; 95819; 96374; 96375; 96376; J0278; J1720; J1953; J1956; J2060; J2185; J2270; J2370; J3370; J3475; J3480; J7030; J7040; J7050; J7060; J7070; J7120; P9016; P9035